=== PATIENT | male | born 1970 | race Two or more races ===

== ENCOUNTER 2018-08-15 07:23 | Day surgery (SDC) | payer SELFPAY ==
[2018-08-15 08:09] LABS: BLOOD UREA NITROGEN 55 mg/dL (7-20)
[2018-08-15 08:14] LABS: INTERNATIONAL RATION (INR) 1.68; PROTHROMBIN TIME 20.6 SEC (11.4-15.4)
[2018-08-15 08:15] LABS: PARTIAL THROMBOPLASTIN TIME 37.5 SEC (23.5-35.8)
[2018-08-15 09:20] LABS: HEMATOCRIT 35.2 % (37.9-51.0); HEMOGLOBIN 12.7 g/dL (13.5-17.0); MEAN CORPUSCULAR HEMOGLOBIN 35.3 pg (27.0-33.4); MEAN CORPUSCULAR HGB CONC 36.1 g/dL (32.0-36.0); MEAN CORPUSCULAR VOLUME 98 fl (80-97); RED CELL DISTRIBUTION WIDTH 15.4 % (11.5-14.0); WHITE BLOOD COUNT 15.6 10^3/uL (4.0-10.5)
[2018-08-15 09:45] LABS: PLATELET COUNT 60 10^3/uL (150-450)
[2018-08-15 11:10] LABS: FLUID APPEARANCE HAZY; FLUID COLOR YELLOW; FLUID VISCOSITY LIQUID
[2018-08-15 11:13] LABS: FLUID TYPE PERITONEAL
--- NOTE | 2018-08-15 11:46 | RADIOLOGY REPORT (SQ) ---
EXAM DESCRIPTION: U/S ABD PARACENTESIS COMPLETED DATE/TIME: 08/15/2018 10:37 am REASON FOR STUDY: ASCITES COMPARISON None. LIMITATIONS: None. PROCEDURE: After obtaining informed consent, the patient was brought to the ultrasound suite. The p rocedure was performed with the patient on a gurney. Ultrasound was used to identify a prominent poc ket of ascites in the left lower quadrant. An appropriate access site was selected. The patient was prepped and draped in usual sterile fashion. The access site was anesthetized with 5 mL 1% lidocai ne. A [id number]-[id number]-[id number] needle was advanced into the fluid. After aspiration of fluid the needle, the catheter was advanced off the needle into the fluid. A total of 4,400 mL of clear yellow fluid was removed. The patient tolerated the procedure well left the department in satisfactory condition. Ascites specimen was sent for testing as per Dr. Hernadez IMPRESSION: Successful ultrasound-guided diagnostic and therapeutic paracentesis COMMENT: Patient medication list reviewed: Yes- Quality ID# [id number]:Eligible professional attests to doc umenting in the medical record they obtained, updated, or reviewed the patient's current medications. TECHNICAL DOCUMENTATION: JOB ID: [id number] [employer]- All Rights Reserved Reading location - IP/workstation name: [email or web address]
[2018-08-15 13:28] VITALS: BP 110/68
== END 2018-08-15 10:50 | disposition home or self-care (01) ==
LOC: RAD 07:23
PROVIDERS: ATTEND Internal Medicine Gastroenterology
DX: K70.31 Alcoholic cirrhosis of liver with ascites (principal)
CPT/HCPCS: 36415; 49083; 82042; 82565; 84520; 85027; 85610; 85730; 87070; 87075; 87205; 89050

== ENCOUNTER 2018-09-11 15:45 | Inpatient (IN) | payer SELFPAY ==
--- NOTE | 2018-09-11 16:03 | ER Document Report ---
ED Medical Screen (RME) - General Chief Complaint: Abnormal Lab Results Stated Complaint: ABNORMAL LABS Time Seen by Provider: 09/11/18 15:54 Mode of Arrival: Ambulatory Information source: Patient TRAVEL OUTSIDE OF THE [place] IN LAST 30 DAYS: No - HPI Notes: 09/11/18 15:57 48 yr old male presents for potassium recheck with hx of renal and hepatic issues, was told by his PCP to come to ER today for receck potassium, noted hx of acites, pt is supposed to see [facility] next Saturday for liver failure. no cp, sob, n/v/d, no abd pain. pcp dr. marin, [facility]. 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 noted jaundice in eyes. Paracentesis in past. I have greeted and performed a rapid initial assessment of this patient. A comprehensive ED assessment and evaluation of the patient, analysis of test results and completion of medical decision making process will be conducted by an additional ED providers. - Related Data Allergies/Adverse Reactions: promethazine HCl [From Phenergan] Allergy (Intermediate, Verified 09/11/18 15:46) dystonic Past Medical History - Past Medical History Cardiac Medical History: Denies: Hx Coronary Artery Disease, Hx Heart Attack, Hx Hypertension Pulmonary Medical History: Denies: Hx Asthma, Hx Bronchitis, Hx COPD, Hx Pneumonia Neurological Medical History: Denies: Hx Cerebrovascular Accident, Hx Seizures Musculoskeltal Medical History: Denies Hx Arthritis - Immunizations Hx Diphtheria, Pertussis, Tetanus Vaccination: Yes History of Influenza Vaccine for 06/2017 - 11/2017 Season: Unknown Physical Exam - Vital signs Vitals: Temp Pulse Resp BP Pulse Ox 98.5 F 110 H 20 114/60 100 09/11/18 15:50 09/11/18 15:50 09/11/18 15:50 09/11/18 15:50 09/11/18 15:50 - Respiratory Respiratory status: No respiratory distress Chest status: Nontender Breath sounds: Normal Chest palpation: Normal - Cardiovascular Rhythm: Tachycardia Normal capillary refill: Yes - Skin Skin Color: Jaundiced Course - Vital Signs Vital signs: Temp Pulse Resp BP Pulse Ox 98.5 F 110 H 20 114/60 100 09/11/18 15:50 09/11/18 15:50 09/11/18 15:50 09/11/18 15:50 09/11/18 15:50 Doctor's Discharge - Discharge Referrals: HANH GTZ MD [Primary Care Provider] - Follow up as needed
[2018-09-11 16:22] LABS: ABSOLUTE EOSINOPHILS # (AUTO) 0.1 10^3/uL (0.0-0.6); ABSOLUTE LYMPHOCYTES (AUTO) 1.2 10^3/uL (0.5-4.7); ABSOLUTE MONOCYTES (AUTO) 1.9 10^3/uL (0.1-1.4); ABSOLUTE NEUT (AUTO) 9.6 10^3/uL (1.7-8.2); BASOPHILS % (AUTO) 0.3 % (0-2); EOSINOPHILS % (AUTO) 0.9 % (0-6); HEMATOCRIT 31.2 % (37.9-51.0); HEMOGLOBIN 10.8 g/dL (13.5-17.0); LYMPHOCYTES % (AUTO) 9.5 % (13-45); MEAN CORPUSCULAR HEMOGLOBIN 34.4 pg (27.0-33.4); MEAN CORPUSCULAR HGB CONC 34.7 g/dL (32.0-36.0); MEAN CORPUSCULAR VOLUME 99 fl (80-97); MONOCYTES % (AUTO) 14.9 % (3-13); PLATELET COUNT 188 10^3/uL (150-450); RED BLOOD COUNT 3.15 10^6/uL (4.35-5.55); RED CELL DISTRIBUTION WIDTH 16.4 % (11.5-14.0); SEGMENTED NEUTROPHILS % (AUTO) 74.4 % (42-78); TOTAL CELLS COUNTED % (AUTO) 100 %; WHITE BLOOD COUNT 12.8 10^3/uL (4.0-10.5)
[2018-09-11 16:28] LABS: INTERNATIONAL RATION (INR) 1.33; PROTHROMBIN TIME 17.1 SEC (11.4-15.4)
[2018-09-11 16:29] LABS: PARTIAL THROMBOPLASTIN TIME 34.6 SEC (23.5-35.8)
[2018-09-11 16:34] LABS: APPEARANCE,URINE CLEAR; BILIRUBIN,URINE NEGATIVE (NEGATIVE); COLOR,URINE YELLOW; GLUCOSE, URINE NEGATIVE (NEGATIVE); KETONES,URINE NEGATIVE (NEGATIVE); LEUKOCYTE ESTERASE,URINE NEGATIVE (NEGATIVE); NITRITE,URINE NEGATIVE (NEGATIVE); PROTEIN,URINE NEGATIVE (NEGATIVE); URINE SPECIFIC GRAVITY 1.008; UROBILINOGEN,URINE NEGATIVE mg/dL (<2.0)
[2018-09-11 16:43] LABS: ALANINE AMINOTRANSFERASE 44 U/L (21-72); ALBUMIN 2.9 g/dL (3.5-5.0); ALKALINE PHOSPHATASE 303 U/L (38-126); ANION GAP 13 (5-19); ASPARTATE AMINO TRANSFERASE 59 U/L (17-59); BILIRUBIN,DIRECT 5.2 mg/dL (0.0-0.4); BILIRUBIN,TOTAL 8.6 mg/dL (0.2-1.3); BLOOD UREA NITROGEN 27 mg/dL (7-20); CALCIUM 8.3 mg/dL (8.4-10.2); CARBON DIOXIDE 26 mmol/L (22-30); CHLORIDE 95 mmol/L (98-107); GLUCOSE 109 mg/dL (75-110); LIPASE 128.8 U/L (23-300); SODIUM 133.8 mmol/L (137-145); TOTAL PROTEIN 5.5 g/dL (6.3-8.2)
--- NOTE | 2018-09-11 16:51 | RADIOLOGY REPORT (SQ) ---
EXAM DESCRIPTION: CHEST SINGLE VIEW COMPLETED DATE/TIME: 09/11/2018 4:41 pm REASON FOR STUDY: low K, weakness COMPARISON: 08/24/2016. EXAM PARAMETERS: NUMBER OF VIEWS: One view. TECHNIQUE: Single frontal radiographic view of the chest acquired. RADIATION DOSE: NA LIMITATIONS: None. FINDINGS: LUNGS AND PLEURA: Low lung volumes. No infiltrates, masses or pneumothorax. No pleural ef fusion. MEDIASTINUM AND HILAR STRUCTURES: No masses. Contour normal. HEART AND VASCULAR STRUCTURES: Heart normal in size. Normal vasculature. BONES: No acute findings. HARDWARE: Surgical clips in the abdomen. OTHER: No other significant finding. IMPRESSION: NO ACUTE RADIOGRAPHIC FINDING IN THE CHEST. TECHNICAL DOCUMENTATION: JOB ID: [id number] [employer]- All Rights Reserved Reading location - IP/workstation name: [email or web address]
[2018-09-11 17:09] LABS: POTASSIUM 2.3 mmol/L (3.6-5.0)
[2018-09-11] MEDS ORDERED: POTASSIUM CHLORIDE 10 MEQ CAPSULE.ER PO ONE ×2 (17:11→18:14)
[2018-09-11] MEDS ORDERED: POTASSI CL 20 MEQ/50 ML RIDER 20 MEQ/50 ML RTUPB IV ONE ×2 (17:13→17:53)
--- NOTE | 2018-09-11 18:32 | ER Document Report ---
ED General - General Chief Complaint: Abnormal Lab Results Stated Complaint: ABNORMAL LABS Time Seen by Provider: 09/11/18 15:54 Mode of Arrival: Ambulatory TRAVEL OUTSIDE OF THE [place] IN LAST 30 DAYS: No - HPI Notes: Patient is a 48-year-old male that presents to the emergency department for chief complaint of hypokalemia. Patient states that he is in the process of being managed for acute alcoholic cirrhosis and liver failure. He was recently seen at [facility] for his symptoms. Patient had follow-up blood work done as an outpatient yesterday and was told to come into the emergency room today for hypokalemia. He denies history of hypokalemia in the past. He denies any other symptoms. He states in general he feels his jaundice is improving. He denies any acute abdominal pain but does still have the ascites which he states is unchanged. He denies any wo rsening lower extremity edema, fevers, nausea, vomiting, diarrhea, chest pain and shortness of breath. Past Medical History: Alcoholic cirrhosis Past Surgical History: Viewed in chart Social History: History of alcoholism, denies tobacco and drug use Family History: Reviewed and noncontributory for presenting illness Allergies: Reviewed, see documented allergy list. REVIEW OF SYSTEMS: CONSTITUTIONAL : No fever No chills No diaphoresis No recent illness EENT: No vision changes No congestion No sore throat CARDIOVASCULAR: No chest pain No palpitations RESPIRATORY: No shortness of breath No cough No difficulty breathing GASTROINTESTINAL: No abdominal pain No nausea No vomiting No diarrhea GENITOURINARY: No dysuria No hematuria No difficulty urinating MUSCULOSKELETAL: No back pain No leg pain No arm pain SKIN: No rashes No lesions LYMPHATIC: No swollen, enlarged glands. NEUROLOGICAL: No lightheadedness No headache No weakness No paresthesias PSYCHIATRIC: No anxiety No depression PHYSICAL EXAMINATION: Vital signs reviewed, nursing noted reviewed. GENERAL: Well-appearing, well-nourished and in no acute distress. HEAD: Atraumatic, normocephalic. EYES: Eyes appear normal, extraocular movements intact, scleral icterus, conjun ctiva are normal. ENT: nares patent, oropharynx clear without exudates. Moist mucous membranes. NECK: Normal range of motion, supple without lymphadenopathy LUNGS: Breath sounds clear to auscultation bilaterally and equal. No wheezes rales or rhonchi. HEART: Tachycardic and regular rhythm without murmurs ABDOMEN: Soft, nontender, normoactive bowel sounds. No rebound, guarding, or rigidity. Distended with fluid wave and ascites EXTREMITIES: Nontender, good range of motion, +2 pitting edema bilateral lower extremities with no weeping. NEUROLOGICAL: No focal neurological deficits. Moves all extremities spontaneously Motor and sensory grossly intact on exam. PSYCH: Normal mood, normal affect. SKIN: Warm, Dry, normal turgor, jaundice - Related Data Allergies/Adverse Reactions: promethazine HCl [From Phenergan] Allergy (Intermediate, Verified 09/11/18 15:46) dystonic Past Medical History - General Information source: Patient - Social History Smoking Status: Unknown if Ever Smoked Family History: Reviewed & Not Pertinent Patient has suicidal ideation: No Patient has homicidal ideation: No - Past Medical History Cardiac Medical History: Denies: Hx Coronary Artery Disease, Hx Heart Attack, Hx Hypertension Pulmonary Medical History: Denies: Hx Asthma, Hx Bronchitis, Hx COPD, Hx Pneumonia Neurological Medical History: Denies: Hx Cerebrovascular Accident, Hx Seizures Renal/ Medical History: Reports: Hx End Stage Renal Disease. Denies: Hx Peritoneal Dialysis Musculoskeletal Medical History: Denies Hx Arthritis - Immunizations Hx Diphtheria, Pertussis, Tetanus Vaccination: Yes Physical Exam - Vital signs Vitals: Temp Pulse Resp BP Pulse Ox 98.5 F 110 H 20 114/60 100 09/11/18 15:50 09/11/18 15:50 09/11/18 15:50 09/11/18 15:50 09/11/18 15:50 Course - Re-evaluation Re-evalutation: 09/11/18 18:30 Vitals reviewed. Nursing notes reviewed. Patient is jaundiced with a elevated total bilirubin greater than 8. I am attempting to reach [facility] to see if this is new or part of his cirrhosis. Patient's potassium is 2.3 and he will be given potassium replacement. He is on property assessment monitor. EKG shows no dysrhythmia. 09/11/18 18:43 Patient's care was discussed with Dr. Prasad Menon, hepatology at [facility]. Patient's creatinine at discharge was 1.4, BUN 18, total bilirubin 12. He states that patient has worsening renal function likely due to his third spacing and does not recommend any fluids. He recommends albumin which will be given to the patient in the emergency room. His total bilirubin is improving since he has stopped drinking. He does not feel any further workup of his elevated total bili is currently indicated. Patient's potassium was replaced oral and IV. He will be admitted to the hospital for close monitoring of his renal function as well as hypokalemia. Case discussed with Dr. Lang who accepts admission. Laboratory 09/11/18 09/11/18 09/11/18 16:00 16:00 16:00 WBC 12.8 H RBC 3.15 L Hgb 10.8 L Hct 31.2 L MCV 99 H MCH 34.4 H MCHC 34.7 RDW 16.4 H Plt Count 188 Seg Neutrophils % 74.4 Lymphocytes % 9.5 L Monocytes % 14.9 H Eosinophils % 0.9 Basophils % 0.3 Absolute Neutrophils 9.6 H Absolute Lymphocytes 1.2 Absolute Monocytes 1.9 H Absolute Eosinophils 0.1 Absolute Basophils 0.0 PT INR APTT Sodium 133.8 L Potassium 2.3 L* Chloride 95 L Carbon Dioxide 26 Anion Gap 13 BUN 27 H Creatinine 1.97 H Est GFR ( Amer) 44 L Est GFR (Non-Af Amer) 37 L Glucose 109 Calcium 8.3 L Total Bilirubin 8.6 H Direct Bilirubin 5.2 H Neonat Total Bilirubin Not Reportable Neonat Direct Bilirubin Not Reportable Neonat Indirect Bili Not Reportable AST 59 ALT 44 Alkaline Phosphatase 303 H Ammonia Troponin I < 0.012 Total Protein 5.5 L Albumin 2.9 L Lipase 128.8 Urine Color Urine Appearance Urine pH Ur Specific [place] Urine Protein Urine Glucose (UA) Urine Ketones Urine Blood Urine Nitrite Urine Bilirubin Urine Urobilinogen Ur Leukocyte Esterase Urine WBC (Auto) U Hyaline Cast (Auto) Squamous Epi Cells Auto Urine Mucus (Auto) Urine Ascorbic Acid 09/11/18 09/11/18 09/11/18 16:00 16:00 16:00 WBC RBC Hgb Hct MCV MCH MCHC RDW Plt Count Seg Neutrophils % Lymphocytes % Monocytes % Eosinophils % Basophils % Absolute Neutrophils Absolute Lymphocytes Absolute Monocytes Absolute Eosinophils Absolute Basophils PT 17.1 H INR 1.33 APTT 34.6 Sodium Potassium Chloride Carbon Dioxide Anion Gap BUN Creatinine Est GFR ( Amer) Est GFR (Non-Af Amer) Glucose Calcium Total Bilirubin Direct Bilirubin Neonat Total Bilirubin Neonat Direct Bilirubin Neonat Indirect Bili AST ALT Alkaline Phosphatase Ammonia 30.7 Troponin I Total Protein Albumin Lipase Urine Color YELLOW Urine Appearance CLEAR Urine pH 6.0 Ur Specific [place] 1.008 Urine Protein NEGATIVE Urine Glucose (UA) NEGATIVE Urine Ketones NEGATIVE Urine Blood SMALL H Urine Nitrite NEGATIVE Urine Bilirubin NEGATIVE Urine Urobilinogen NEGATIVE Ur Leukocyte Esterase NEGATIVE Urine WBC (Auto) 0 U Hyaline Cast (Auto) 5 Squamous Epi Cells Auto 1 Urine Mucus (Auto) RARE Urine Ascorbic Acid NEGATIVE Chest X-Ray 09/11/18 15:55 IMPRESSION: NO ACUTE RADIOGRAPHIC FINDING IN THE CHEST. - Vital Signs Vital signs: Temp Pulse Resp BP Pulse Ox 98.5 F 110 H 24 H 106/62 98 09/11/18 15:50 09/11/18 15:50 09/11/18 18:01 09/11/18 18:00 09/11/18 18:01 - Laboratory Result Diagrams: 09/11/18 16:00 09/11/18 16:00 Laboratory results interpreted by me: 09/11/18 09/11/18 09/11/18 16:00 16:00 16:00 WBC 12.8 H RBC 3.15 L Hgb 10.8 L Hct 31.2 L MCV 99 H MCH 34.4 H RDW 16.4 H Lymphocytes % 9.5 L Monocytes % 14.9 H Absolute Neutrophils 9.6 H Absolute Monocytes 1.9 H PT 17.1 H Sodium 133.8 L Potassium 2.3 L* Chloride 95 L BUN 27 H Creatinine 1.97 H Est GFR ( Amer) 44 L Est GFR (Non-Af Amer) 37 L Calcium 8.3 L Total Bilirubin 8.6 H Direct Bilirubin 5.2 H Alkaline Phosphatase 303 H Total Protein 5.5 L Albumin 2.9 L Urine Blood 09/11/18 16:00 WBC RBC Hgb Hct MCV MCH RDW Lymphocytes % Monocytes % Absolute Neutrophils Absolute Monocytes PT Sodium Potassium Chloride BUN Creatinine Est GFR ( Amer) Est GFR (Non-Af Amer) Calcium Total Bilirubin Direct Bilirubin Alkaline Phosphatase Total Protein Albumin Urine Blood SMALL H - EKG Interpretation by Me Additional EKG results interpreted by me: 09/11/18 18:31 Interpreted by myself [id number]: Sinus tachycardia, rate 111, normal axis, no ectopy, no ST elevation Discharge - Discharge Clinical Impression: Hypokalemia, Total bilirubin, elevated, KAREN (acute kidney injury) Condition: Stable Disposition: ADMITTED OBSERVATION Admitting Provider: Hospitalist Unit Admitted: Telemetry Referrals: HANH GTZ MD [Primary Care Provider] - Follow up as needed
[2018-09-11] MEDS ORDERED: IPRATROPIUM/ALBUTEROL 0.5-2.5 MG/3 ML AMPUL NEB PRN (19:03)
[2018-09-11] MEDS ORDERED: MAG HYDROX/AL HYDROX/SIMETH SUSP 30 ML UDCUP PO PRN (19:03)
[2018-09-11] MEDS: ALBUMIN HUMAN 12.5 GM/50 ML RTUINJ IV SCH ×4 (19:09→23:47)
[2018-09-11 19:34] LABS: LIPASE 125.6 U/L (23-300); PHOSPHORUS 3.2 mg/dL (2.5-4.5)
[2018-09-11] MEDS: FOLIC ACID 1 MG TABLET PO SCH (19:36)
[2018-09-11 19:55] LABS: URINE AMPHETAMINES SCREEN NEGATIVE; URINE BARBITURATES SCREEN NEGATIVE; URINE BENZODIAZEPINES SCREEN NEGATIVE; URINE COCAINE SCREEN NEGATIVE; URINE MARIJUANA (THC) SCREEN NEGATIVE; URINE METHADONE SCREEN NEGATIVE; URINE PHENCYCLIDINE SCREEN NEGATIVE
[2018-09-11] MEDS: THIAMINE HCL 100 MG TABLET PO SCH (20:49)
--- NOTE | 2018-09-12 04:32 | PDOC H&P ---
History of Present Illness Admission Date/PCP: 09/11/18 19:25 HANH GTZ MD Patient complains of: Abnormal labs History of Present Illness: ROSALIE REN is a 48 year old male with a recent past medical history of acute alcoholic hepatitis leading to hepatic cirrhosis and renal failure. Patient was recently discharged from [facility] after starting Lasix, lactulose and Aldactone. Follow-up labs of revealed hypokalemia prompting a referral to the emergency room where he was found to have a potassium of 2.3, creatinine of 1.9 and total bilirubin of 8.6 from 12 at discharge from [facility]. Patient himself has no complaints aside from generalized weakness and abdominal distention. Denying abdominal pain fever nausea or vomiting. He is ordered albumin, IV potassium and referred to the hospitalist for admission. Patient denies alcohol use. Past Medical History Cardiac Medical History: Denies: Coronary Artery Disease, Myocardial Infarction, Hypertension Pulmonary Medical History: Denies: Asthma, Bronchitis, Chronic Obstructive Pulmonary Disease (COPD), Pneumonia Neurological Medical History: Denies: Seizures Renal/ Medical History: Reports: Chronic Kidney Disease GI Medical History: Reports: Cirrhosis Musculoskeltal Medical History: Denies: Arthritis Psychiatric Medical History: Denies: Depression Hematology: Denies: Anemia Social History Information Source: Patient Lives with: Family Smoking Status: Unknown if Ever Smoked Frequency of Alcohol Use: None Hx Prescription Drug Abuse: No - Advance Directive Resuscitation Status: Full Code Family History Family History: Hypertension Parental Family History Reviewed: Yes Children Family History Reviewed: Yes Sibling(s) Family History Reviewed.: Yes Medication/Allergy Home Medications: Furosemide [Lasix 20 mg Tablet] 40 mg PO DAILY 09/11/18 Spironolactone [Aldactone 100 mg Tablet] 100 mg PO DAILY 09/11/18 Allergies/Adverse Reactions: promethazine HCl [From Phenergan] Allergy (Intermediate, Verified 09/11/18 15:46) dystonic Review of Systems Constitutional: PRESENT: as per HPI, fatigue, weakness, weight gain. ABSENT: fever(s), headache(s), night sweats Eyes: ABSENT: visual disturbances Ears: ABSENT: hearing changes Cardiovascular: ABSENT: chest pain, dyspnea on exertion, edema, orthropnea, palpitations Respiratory: ABSENT: cough, hemoptysis Gastrointestinal: PRESENT: as per HPI. ABSENT: abdominal pain, bloating, coffee ground emesis, constipation, melena, nausea, vomiting Genitourinary: ABSENT: dysuria, hematuria Musculoskeletal: ABSENT: joint swelling Integumentary: ABSENT: rash, wounds Neurological: ABSENT: abnormal gait, abnormal speech, confusion, dizziness, focal weakness, syncope Psychiatric: ABSENT: anxiety, depression, homidical ideation, suicidal ideation Endocrine: ABSENT: cold intolerance, heat intolerance, polydipsia, polyuria Hematologic/Lymphatic: ABSENT: easy bleeding, easy bruising Physical Exam Vital Signs: Temp Pulse Resp BP Pulse Ox 98.7 F 116 H 16 99/52 L 93 09/11/18 23:07 09/11/18 23:07 09/11/18 23:07 09/11/18 23:07 09/11/18 23:07 Intake & Output 09/10/18 09/11/18 09/12/18 11:59 11:59 11:59 Intake Total 250 Balance 250 Weight 86.2 kg General appearance: PRESENT: cooperative, mild distress, morbidly obese. ABSENT: disheveled Head exam: PRESENT: atraumatic, normocephalic Eye exam: PRESENT: EOMI, PERRLA, scleral icterus Ear exam: PRESENT: normal external ear exam Mouth exam: PRESENT: moist, tongue midline Neck exam: ABSENT: carotid bruit, JVD, lymphadenopathy, thyromegaly Respiratory exam: PRESENT: clear to auscultation keeley. ABSENT: rales, rhonchi, wheezes Cardiovascular exam: PRESENT: RRR. ABSENT: diastolic murmur, rubs, systolic murmur Pulses: PRESENT: normal dorsalis pedis pul Vascular exam: PRESENT: normal capillary refill GI/Abdominal exam: PRESENT: ascites, distended, hypoactive bowel sounds, soft. ABSENT: guarding, tenderness Rectal exam: PRESENT: deferred Extremities exam: PRESENT: full ROM, pedal edema, +2 edema. ABSENT: joint swelling Neurological exam: PRESENT: alert, awake, oriented to person, oriented to place, oriented to time, oriented to situation, CN II-XII grossly intact. ABSENT: dee r sensory deficit Psychiatric exam: PRESENT: appropriate affect, normal mood. ABSENT: homicidal ideation, suicidal ideation Skin exam: PRESENT: dry, intact, warm. ABSENT: cyanosis, rash Results Laboratory Results: 09/11/18 16:00 09/11/18 16:00 0109/11/18 09/11/18 16:00 16:00 16:00 WBC 12.8 H RBC 3.15 L Hgb 10.8 L Hct 31.2 L MCV 99 H MCH 34.4 H MCHC 34.7 RDW 16.4 H Plt Count 188 Seg Neutrophils % 74.4 Lymphocytes % 9.5 L Monocytes % 14.9 H Eosinophils % 0.9 Basophils % 0.3 Absolute Neutrophils 9.6 H Absolute Lymphocytes 1.2 Absolute Monocytes 1.9 H Absolute Eosinophils 0.1 Absolute Basophils 0.0 Sodium 133.8 L Potassium 2.3 L* Chloride 95 L Carbon Dioxide 26 Anion Gap 13 BUN 27 H Creatinine 1.97 H Est GFR ( Amer) 44 L Est GFR (Non-Af Amer) 37 L Glucose 109 Calcium 8.3 L Phosphorus Magnesium Total Bilirubin 8.6 H AST 59 ALT 44 Alkaline Phosphatase 303 H Ammonia 30.7 Total Protein 5.5 L Albumin 2.9 L Lipase 128.8 Urine Color Urine Appearance Urine pH Ur Specific [place] Urine Protein Urine Glucose (UA) Urine Ketones Urine Blood Urine Nitrite Ur Leukocyte Esterase Urine WBC (Auto) 09/11/18 09/11/18 16:00 16:00 WBC RBC Hgb Hct MCV MCH MCHC RDW Plt Count Seg Neutrophils % Lymphocytes % Monocytes % Eosinophils % Basophils % Absolute Neutrophils Absolute Lymphocytes Absolute Monocytes Absolute Eosinophils Absolute Basophils Sodium Potassium Chloride Carbon Dioxide Anion Gap BUN Creatinine Est GFR ( Amer) Est GFR (Non-Af Amer) Glucose Calcium Phosphorus 3.2 Magnesium 2.0 Total Bilirubin AST ALT Alkaline Phosphatase Ammonia Total Protein Albumin Lipase 125.6 Urine Color YELLOW Urine Appearance CLEAR Urine pH 6.0 Ur Specific [place] 1.008 Urine Protein NEGATIVE Urine Glucose (UA) NEGATIVE Urine Ketones NEGATIVE Urine Blood SMALL H Urine Nitrite NEGATIVE Ur Leukocyte Esterase NEGATIVE Urine WBC (Auto) 0 09/11/18 16:00 Troponin I < 0.012 Impressions: Chest X-Ray 09/11/18 15:55 IMPRESSION: NO ACUTE RADIOGRAPHIC FINDING IN THE CHEST. Assessment & Plan - Diagnosis (1) Hepatic cirrhosis Is this a current diagnosis for this admission?: Yes Plan: Followed by [facility] hepatology Dr. Prasad Menon. Cirrhosis secondary to alcohol currently abstinent, significant hypoalbuminemia with intravascular depletion and third spacing. Follow-up LFTs (2) Hypoalbuminemia Is this a current diagnosis for this admission?: Yes Plan: Trial IV albumin, consider repeating if hypotensive with worsening renal failure. (3) KAREN (acute kidney injury) Is this a current diagnosis for this admission?: Yes Plan: Secondary to hyperammonemia leading to intravascular depletion and prerenal failure. Consider nephrology consult and repeat IV albumin with saline. Follow-up chemistry (4) Hypokalemia Is this a current diagnosis for this admission?: Yes Plan: Secondary to Lasix and lactulose use. Unclear Aldactone compliance. IV pota ssium repletion and education - Time Time Spent: 50 to 70 Minutes - Inpatient Certification Medical Necessity: Need Close Monitoring Due to Risk of Patient Decompensation
[2018-09-12 05:27] LABS: ABSOLUTE EOSINOPHILS # (AUTO) 0.1 10^3/uL (0.0-0.6); ABSOLUTE LYMPHOCYTES (AUTO) 1.1 10^3/uL (0.5-4.7); ABSOLUTE MONOCYTES (AUTO) 1.3 10^3/uL (0.1-1.4); ABSOLUTE NEUT (AUTO) 7.7 10^3/uL (1.7-8.2); BASOPHILS % (AUTO) 0.3 % (0-2); EOSINOPHILS % (AUTO) 0.9 % (0-6); HEMATOCRIT 25.9 % (37.9-51.0); HEMOGLOBIN 9.1 g/dL (13.5-17.0); LYMPHOCYTES % (AUTO) 10.3 % (13-45); MEAN CORPUSCULAR HGB CONC 35.2 g/dL (32.0-36.0); MEAN CORPUSCULAR VOLUME 99 fl (80-97); MONOCYTES % (AUTO) 13.1 % (3-13); PLATELET COUNT 148 10^3/uL (150-450); RED BLOOD COUNT 2.61 10^6/uL (4.35-5.55); RED CELL DISTRIBUTION WIDTH 16.1 % (11.5-14.0); SEGMENTED NEUTROPHILS % (AUTO) 75.4 % (42-78); TOTAL CELLS COUNTED % (AUTO) 100 %; WHITE BLOOD COUNT 10.2 10^3/uL (4.0-10.5)
[2018-09-12 05:53] LABS: ALANINE AMINOTRANSFERASE 37 U/L (21-72); ALBUMIN 2.8 g/dL (3.5-5.0); ALKALINE PHOSPHATASE 245 U/L (38-126); ANION GAP 10 (5-19); ASPARTATE AMINO TRANSFERASE 48 U/L (17-59); BILIRUBIN,DIRECT 4.1 mg/dL (0.0-0.4); BILIRUBIN,TOTAL 7.6 mg/dL (0.2-1.3); BLOOD UREA NITROGEN 25 mg/dL (7-20); CALCIUM 8.3 mg/dL (8.4-10.2); CARBON DIOXIDE 24 mmol/L (22-30); CHLORIDE 100 mmol/L (98-107); GLUCOSE 120 mg/dL (75-110); SODIUM 134.2 mmol/L (137-145)
[2018-09-12 06:00] LABS: POTASSIUM 2.8 mmol/L (3.6-5.0)
[2018-09-12] MEDS: HEPARIN SOD (PORCINE) 5,000 UNIT/ML 1 ML SYRINGE SUBCUT SCH ×4 (06:12→22:32)
[2018-09-12] MEDS ORDERED: POTASSIUM CHLORIDE 10 MEQ CAPSULE.ER PO ONE (07:30)
--- NOTE | 2018-09-12 08:21 | EKG REPORT ---
SEVERITY:- OTHERWISE NORMAL ECG - SINUS TACHYCARDIA : Confirmed by: Azra Cosby MD 12-Sep-2018 08:20:12
[2018-09-12] MEDS: POTASSIUM CHLORIDE 20 MEQ/50 ML RTU IV SCH ×2 (08:46→11:31)
[2018-09-12] MEDS ORDERED: PHYTONADIONE 5 MG TABLET PO SCH (10:00)
[2018-09-12] MEDS: SPIRONOLACTONE 25 MG TABLET PO SCH (11:30)
[2018-09-12] MEDS: THIAMINE HCL 100 MG TABLET PO SCH (11:30)
[2018-09-12] MEDS: FOLIC ACID 1 MG TABLET PO SCH (11:31)
--- NOTE | 2018-09-12 14:47 | PDOC PROGRESS REPORT ---
Subjective Progress Note for:: 09/12/18 Subjective:: This is a 48 yr old male with a PMH of alcoholic liver cirrhosis and CKD who was recently discharged from [facility] who was presented after he was sent to the ER by his PCP due to hypokalemia. Patient says that he was discharged on lactulose from [place] and started having 5- 6 times of bowel movements per day. He says on his regular day prior to taking lactulose, he grajeda 3 BM/day. He was also taking lasix and aldactone. Potassium was low at 2.3. He was started on potasium supplements. No acute event overnight. However, this morning, his potassium was still ow and only went up to 2.8. He was given another 40 meqs of PO KCl and 40 meqs IV. His bowel movement is back to baseline now. Denies abdominl pain, fever or chills. He has chronic abdominal distention from his chronic ascites. He says his jaundice is also improving compared to when he was in [place]. Reason For Visit: HYPOKALEMIA,ARF,HEPATIC CIRRHOSIS Physical Exam Vital Signs: Temp Pulse Resp BP Pulse Ox 99.2 F 115 H 16 100/58 L 98 09/12/18 11:28 09/12/18 11:28 09/12/18 11:28 09/12/18 11:28 09/12/18 11:28 Intake & Output 09/11/18 09/12/18 09/13/18 06:59 06:59 06:59 Intake Total 300 50 Balance 300 50 Weight 190 lb 0.615 oz General appearance: PRESENT: no acute distress, well-developed, well-nourished Head exam: PRESENT: atraumatic, normocephalic Eye exam: PRESENT: scleral icterus. ABSENT: conjunctival injection Ear exam: PRESENT: normal external ear exam Mouth exam: PRESENT: moist, tongue midline Neck exam: ABSENT: carotid bruit, JVD, lymphadenopathy, thyromegaly Respiratory exam: PRESENT: clear to auscultation keeley. ABSENT: rales, rhonchi, wheezes Cardiovascular exam: PRESENT: RRR. ABSENT: diastolic murmur, rubs, systolic murmur GI/Abdominal exam: PRESENT: ascites, distended, other - note of caput medusae. ABSENT: diminished bowel sounds, tenderness Rectal exam: PRESENT: deferred Neurological exam: PRESENT: alert, awake, oriented to person, oriented to place, oriented to time, oriented to situation, CN II-XII grossly intact. ABSENT: motor sensory deficit Results Laboratory Results: 09/12/18 05:00 09/12/18 05:00 09/11/18 09/11/18 09/11/18 16:00 16:00 16:00 WBC 12.8 H RBC 3.15 L Hgb 10.8 L Hct 31.2 L MCV 99 H MCH 34.4 H MCHC 34.7 RDW 16.4 H Plt Count 188 Seg Neutrophils % 74.4 Lymphocytes % 9.5 L Monocytes % 14.9 H Eosinophils % 0.9 Basophils % 0.3 Absolute Neutrophils 9.6 H Absolute Lymphocytes 1.2 Absolute Monocytes 1.9 H Absolute Eosinophils 0.1 Absolute Basophils 0.0 Sodium 133.8 L Potassium 2.3 L* Chloride 95 L Carbon Dioxide 26 Anion Gap 13 BUN 27 H Creatinine 1.97 H Est GFR ( Amer) 44 L Est GFR (Non-Af Amer) 37 L Glucose 109 Calcium 8.3 L Phosphorus Magnesium Total Bilirubin 8.6 H AST 59 ALT 44 Alkaline Phosphatase 303 H Ammonia 30.7 Total Protein 5.5 L Albumin 2.9 L Lipase 128.8 Urine Color Urine Appearance Urine pH Ur Specific [place] Urine Protein Urine Glucose (UA) Urine Ketones Urine Blood Urine Nitrite Ur Leukocyte Esterase Urine WBC (Auto) 09/11/18 09/11/18 09/12/18 16:00 16:00 05:00 WBC 10.2 RBC 2.61 L Hgb 9.1 L Hct 25.9 L MCV 99 H MCH 35.0 H MCHC 35.2 RDW 16.1 H Plt Count 148 L Seg Neutrophils % 75.4 Lymphocytes % 10.3 L Monocytes % 13.1 H Eosinophils % 0.9 Basophils % 0.3 Absolute Neutrophils 7.7 Absolute Lymphocytes 1.1 Absolute Monocytes 1.3 Absolute Eosinophils 0.1 Absolute Basophils 0.0 Sodium Potassium Chloride Carbon Dioxide Anion Gap BUN Creatinine Est GFR ( Amer) Est GFR (Non-Af Amer) Glucose Calcium Phosphorus 3.2 Magnesium 2.0 Total Bilirubin AST ALT Alkaline Phosphatase Ammonia Total Protein Albumin Lipase 125.6 Urine Color YELLOW Urine Appearance CLEAR Urine pH 6.0 Ur Specific [place] 1.008 Urine Protein NEGATIVE Urine Glucose (UA) NEGATIVE Urine Ketones NEGATIVE Urine Blood SMALL H Urine Nitrite NEGATIVE Ur Leukocyte Esterase NEGATIVE Urine WBC (Auto) 0 09/12/18 05:00 WBC RBC Hgb Hct MCV MCH MCHC RDW Plt Count Seg Neutrophils % Lymphocytes % Monocytes % Eosinophils % Basophils % Absolute Neutrophils Absolute Lymphocytes Absolute Monocytes Absolute Eosinophils Absolute Basophils Sodium 134.2 L Potassium 2.8 L* Chloride 100 Carbon Dioxide 24 Anion Gap 10 BUN 25 H Creatinine 1.74 H Est GFR ( Amer) 51 L Est GFR (Non-Af Amer) 42 L Glucose 120 H Calcium 8.3 L Phosphorus Magnesium Total Bilirubin 7.6 H AST 48 ALT 37 Alkaline Phosphatase 245 H Ammonia Total Protein 5.0 L Albumin 2.8 L Lipase Urine Color Urine Appearance Urine pH Ur Specific [place] Urine Protein Urine Glucose (UA) Urine Ketones Urine Blood Urine Nitrite Ur Leukocyte Esterase Urine WBC (Auto) 09/11/18 16:00 Troponin I < 0.012 Impressions: Chest X-Ray 09/11/18 15:55 IMPRESSION: NO ACUTE RADIOGRAPHIC FINDING IN THE CHEST. Assessment & Plan - Diagnosis (1) Hypokalemia Is this a current diagnosis for this admission?: Yes Plan: Likely related to GI losses from multiple BM from lactulose with diuresis from Lasix contributing to hypokalemia. He got another 40 mew oral and 40 mew IV Potassium replacement. Will recheck BMP. Will resume diuretics when his hypokalemia is corrected. Lactulose already held upon admission. (2) Hepatic cirrhosis Is this a current diagnosis for this admission?: Yes Plan: Resume diuretics when hypokalemia is corrected (3) Acute kidney injury superimposed on chronic kidney disease Is this a current diagnosis for this admission?: Yes Plan: Previous creatinine was 1.94. He came in with a creatinine of 1.97. This has trended down to 1.7 today. Patient did receive albumin overnight. - Time Time Spent with patient: 25-34 minutes
[2018-09-12 16:51] LABS: ANION GAP 7 (5-19); BLOOD UREA NITROGEN 23 mg/dL (7-20); CALCIUM 8.6 mg/dL (8.4-10.2); CARBON DIOXIDE 26 mmol/L (22-30); CHLORIDE 101 mmol/L (98-107); GLUCOSE 148 mg/dL (75-110); SODIUM 134.4 mmol/L (137-145)
[2018-09-12 16:57] LABS: POTASSIUM 4.8 mmol/L (3.6-5.0)
--- NOTE | 2018-09-12 18:15 | PDOC CONSULTATION ---
Consultation Consult Date: 09/12/18 Attending physician:: FREDA CHAVEZ Consult reason:: I was asked to see the patient due to worsening kidney function. History of Present Illness Admission Date/PCP: 09/11/18 19:25 HANH GTZ MD History of Present Illness: ROSALIE REN is a 48 year old male which is recently diagnosed alcoholic liver disease who was sent to the emergency room yesterday by his local administrative assistant office manager, Dr. Gtz due to hypokalemia. Initial potassium was 2.3 yesterday and potassium replacements are being given since admission until now. Repeat potassium today was 2.8. Patient related that he has had some loose stools due to the lactulose that was started at [facility]. Other than that he denies any other symptoms including no nausea, vomiting, abdominal pain, fever, shortness of breath, no chest pains. He does have a significant leg swelling which she said fluctuates in terms of intensity. He also has abdominal bloating and has history of previous paracentesis in the past. Patient was admitted at [facility] for 8 days and was discharged on 09/01 where he was diagnosed with alcohol liver cirrhosis and he was also told that he has abnormal kidney function. He was discharged on Lasix, spironolactone and lactulose. He said he quit alcohol for the last 55 days now. He has a administrative assistant office manager at [facility]. He said he has had all kinds of tests at [facility] including possible ultrasound and CT scans of the abdomen. When the patient came in he also has abnormal kidney function with BUN of 27 and creatinine of 1.97 today they are 25 and 1.74 with estimated GFR of 37 unchanged from yesterday. Past August 15, 2018 he had a BUN of 55, creatinine 1.94 with estimated GFR of 42. Previous to that on August 2016 he had a BUN of 11, creatinine 1.18 with normal GFR. He claims he is making good amount of urine and drinking fluids as well. His sodium is slightly low ranging from 132-134. He also has some mild anemia. His urinalysis has no proteinuria only and only small blood with specific gravity of 1.008. He has negative chest x-ray. Patient is aware that this liver somehow affected his kidney function according to do. He denies any history of hepatitis. Currently he is hemodynamically stable and does not really have any acute complaints and actually wanted to go home. 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, treated with surgery and chemo GI Medical History: Reports: Cirrhosis - Alcohol related Hematology Medical History: Reports Anemia Past Surgical History Past Surgical History: Reports: None Social History Information Source: Patient Lives with: Family Smoking Status: Never Smoker Frequency of Alcohol Use: Heavy - Quit alcohol 55 days ago Drugs: None Hx Prescription Drug Abuse: No - Advance Directive Resuscitation Status: Full Code Family History Family History: DM - Both sides of the family, Hypertension - Both sides of the family, Malignancy - Breast cancer in his sister, Other - Alcohol liver cirrhosis from his uncles Parental Family History Reviewed: Yes Children Family History Reviewed: Yes Sibling(s) Family History Reviewed.: NA Medication/Allergy Home Medications: Furosemide [Lasix 20 mg Tablet] 40 mg PO DAILY 09/11/18 Spironolactone [Aldactone 100 mg Tablet] 100 mg PO DAILY 09/11/18 Benzonatate [Tessalon Perles 100 mg Capsule] 100 mg PO TIDP PRN 09/12/18 Ciprofloxacin HCl [Cipro 500 mg Tablet] 500 mg PO DAILY 09/12/18 Pantoprazole Sodium [Protonix] 40 mg PO Q12 09/12/18 Allergies/Adverse Reactions: promethazine HCl [From Phenergan] Allergy (Intermediate, Verified 09/11/18 15:46) dystonic Review of Systems All systems: reviewed and no additional remarkable complaints except as stated Review of Systems: Constitutional: ABSENT: chills, fatigue, fever(s), headache(s), weight gain, weight loss Eyes: ABSENT: visual disturbances Ears: ABSENT: hearing changes Cardiovascular: ABSENT: chest pain, dyspnea on exertion, orthropnea, palpitations; admits edema Respiratory: ABSENT: cough, dyspnea, hemoptysis Gastrointestinal: ABSENT: abdominal pain, constipation, hematemesis, hematochezia, nausea, vomiting; admits episodes of diarrhea a week ago, admits abdominal distention Genitourinary: ABSENT: dysuria, hematuria Musculoskeletal: ABSENT: joint swelling Integumentary: ABSENT: rash, wounds Neurological: ABSENT: abnormal gait, abnormal speech, confusion, dizziness, focal weakness, numbness, syncope Psychiatric: ABSENT: anxiety, depression Endocrine: ABSENT: cold intolerance, heat intolerance, polydipsia, polyuria Hematologic/Lymphatic: ABSENT: easy bleeding, easy bruising, lymphadenopathy Physical Exam Vital Signs: Temp Pulse Resp BP Pulse Ox 99.2 F 96 14 100/58 L 98 09/12/18 11:28 09/12/18 16:00 09/12/18 16:00 09/12/18 11:28 09/12/18 16:00 Intake & Output 09/11/18 09/12/18 09/13/18 06:59 06:59 06:59 Intake Total 300 100 Balance 300 100 Weight 86.2 kg Exam: General appearance: No acute distress, cooperative, well-developed, well- nourished Head exam: PRESENT: atraumatic, normocephalic Eye exam: PRESENT: Conjunctiva [place], EOMI, PERRLA. Scleral icterus ABSENT: conjunctival injection Mouth exam: PRESENT: moist, neck supple, tongue midline Neck exam: PRESENT: full ROM. ABSENT: carotid bruit, JVD, lymphadenopathy, thyromegaly Respiratory exam: PRESENT: clear to auscultation bilaterally. ABSENT: rales, rhonchi, stridor, wheezes Cardiovascular exam: PRESENT: RRR, +S1, +S2. ABSENT: systolic murmur Pulses: PRESENT: normal radial pulses, normal dorsalis pedis pulses GI/Abdominal exam: PRESENT: normal bowel sounds, soft. Abdominal distention ABSENT: guarding, mass, tenderness Rectal exam: Deferred Extremities exam: PRESENT: full ROM. Grade 4 bilateral lower extremity pitting edema ABSENT: calf tenderness Musculoskeletal: PRESENT: full ROM. ABSENT: deformity Neurological exam: PRESENT: alert, Awake, Oriented to person, Oriented to place, Oriented to time, reflexes normal, CN II-XII grossly intact. ABSENT: motor sensory deficit Psychiatric exam: PRESENT: appropriate affect, normal mood. ABSENT: homicidal ideation, suicidal ideation Skin exam: PRESENT: intact, dry, warm. ABSENT: rash Results Laboratory Results: 09/12/18 05:00 09/12/18 16:00 09/11/18 09/12/18 09/12/18 16:00 05:00 05:00 WBC 10.2 RBC 2.61 L Hgb 9.1 L Hct 25.9 L MCV 99 H MCH 35.0 H MCHC 35.2 RDW 16.1 H Plt Count 148 L Seg Neutrophils % 75.4 Lymphocytes % 10.3 L Monocytes % 13.1 H Eosinophils % 0.9 Basophils % 0.3 Absolute Neutrophils 7.7 Absolute Lymphocytes 1.1 Absolute Monocytes 1.3 Absolute Eosinophils 0.1 Absolute Basophils 0.0 Sodium 134.2 L Potassium 2.8 L* Chloride 100 Carbon Dioxide 24 Anion Gap 10 BUN 25 H Creatinine 1.74 H Est GFR ( Amer) 51 L Est GFR (Non-Af Amer) 42 L Glucose 120 H Calcium 8.3 L Phosphorus 3.2 Magnesium 2.0 Total Bilirubin 7.6 H AST 48 ALT 37 Alkaline Phosphatase 245 H Total Protein 5.0 L Albumin 2.8 L Lipase 125.6 09/12/18 16:00 WBC RBC Hgb Hct MCV MCH MCHC RDW Plt Count Seg Neutrophils % Lymphocytes % Monocytes % Eosinophils % Basophils % Absolute Neutrophils Absolute Lymphocytes Absolute Monocytes Absolute Eosinophils Absolute Basophils Sodium 134.4 L Potassium 4.8 D Chloride 101 Carbon Dioxide 26 Anion Gap 7 BUN 23 H Creatinine 1.65 H Est GFR ( Amer) 54 L Est GFR (Non-Af Amer) 45 L Glucose 148 H Calcium 8.6 Phosphorus Magnesium Total Bilirubin AST ALT Alkaline Phosphatase Total Protein Albumin Lipase 09/11/18 16:00 Troponin I < 0.012 Impressions: Chest X-Ray 09/11/18 15:55 IMPRESSION: NO ACUTE RADIOGRAPHIC FINDING IN THE CHEST. Assessment & Plan - Diagnosis (1) Acute kidney injury superimposed on chronic kidney disease Is this a current diagnosis for this admission?: Yes Plan: Patient is nonoliguric. Likely cause of the patient's acute worsening of kidney function could be secondary to prerenal factors due to episodes of diarrhea. Patient appeared to have an underlying chronic kidney disease stage III. He does not have any significant proteinuria or microhematuria. Underlying kidney disease likely due to hepatorenal syndrome. No other risk factors for kidney disease. Current kidney function is actually improving almost close to baseline. Check urine sodium if specimen is available. Patient is certain that he has had possible abdominal ultrasound or CT scan at [facility] recently so I will hold any kidney ultrasound for now. Patient definitely does not need any renal re placement therapy. First lost the patient's kidney function continues to improve or stabilize from this point I think he can be safely discharged home. Patient indicated that he follows up at [facility] and also indicated that he would want to be followed for his kidneys at [facility] as well so I recommended that he sees a desktop publishing operator over there. (2) Hepatic cirrhosis Is this a current diagnosis for this admission?: Yes Plan: Alcohol induced. Patient quit alcohol for 55 days now. (3) Hypokalemia Is this a current diagnosis for this admission?: Yes Plan: Potassium replacements are being given. (4) Anemia in chronic illness Is this a current diagnosis for this admission?: Yes - Notes Notes: Thank you very much for this consultation. - Time Time Spent: 50 to 70 Minutes
[2018-09-12] MEDS ORDERED: SPIRONOLACTONE 25 MG TABLET PO ONE (19:12)
[2018-09-13] MEDS: HEPARIN SOD (PORCINE) 5,000 UNIT/ML 1 ML SYRINGE SUBCUT SCH (05:56)
[2018-09-13] MEDS ORDERED: SPIRONOLACTONE 25 MG TABLET PO SCH (10:00)
[2018-09-13] MEDS ORDERED: HEPARIN SOD (PORCINE) 5,000 UNIT/ML 1 ML SYRINGE SUBCUT SCH (10:00)
[2018-09-13] MEDS ORDERED: FUROSEMIDE 20 MG TABLET PO SCH (10:00)
[2018-09-13] MEDS: SPIRONOLACTONE 25 MG TABLET PO SCH (10:45)
[2018-09-13] MEDS: FOLIC ACID 1 MG TABLET PO SCH (10:46)
[2018-09-13] MEDS: THIAMINE HCL 100 MG TABLET PO SCH (10:47)
[2018-09-13 14:04] VITALS: BP 112/57
--- NOTE | 2018-09-13 19:22 | PDOC DISCHARGE SUMMARY ---
General - Admit/Disc Date/PCP Admission Date/Primary Care Provider: 09/11/18 19:25 HANH GTZ MD Discharge Date: 09/13/18 - Discharge Diagnosis (1) Hypokalemia Is this a current diagnosis for this admission?: Yes (2) Hepatic cirrhosis Is this a current diagnosis for this admission?: Yes (3) Acute kidney injury superimposed on chronic kidney disease Is this a current diagnosis for this admission?: Yes - Additional Information Resuscitation Status: Full Code Discharge Diet: As Tolerated Discharge Activity: Activity As Tolerated Prescriptions: Furosemide [Lasix 20 mg Tablet] 20 mg PO DAILY #30 tablet Spironolactone [Aldactone 100 mg Tablet] 50 mg PO DAILY #30 tablet Home Medications: Benzonatate [Tessalon Perles 100 mg Capsule] 100 mg PO TIDP PRN 09/12/18 Pantoprazole Sodium [Protonix] 40 mg PO Q12 09/12/18 Furosemide [Lasix 20 mg Tablet] 20 mg PO DAILY #30 tablet 09/13/18 Spironolactone [Aldactone 100 mg Tablet] 50 mg PO DAILY #30 tablet 09/13/18 History of Present Illness History of Present Illness: Admitting hospitalist's H&P: ROSALIE REN is a 48 year old male with a recent past medical history of acute alcoholic hepatitis leading to hepatic cirrhosis and renal failure. Miroslava ent was recently discharged from [facility] after starting Lasix, lactulose and Aldactone. Follow-up labs of revealed hypokalemia prompting a referral to the emergency room where he was found to have a potassium of 2.3, creatinine of 1.9 and total bilirubin of 8.6 from 12 at discharge from [facility]. Patient himself has no complaints aside from generalized weakness and abdominal distention. Denying abdominal pain fever nausea or vomiting. He is ordered albumin, IV potassium and referred to the hospitalist for admission. Patient denies alcohol use. Hospital Course Hospital Course: This is a 48 yr old male with a PMH of alcoholic liver cirrhosis and CKD who was recently discharged from [facility] who was presented after he was sent to the ER by his PCP due to hypokalemia. Patient says that he was discharged on lactulose from [facility] and started having 5- 6 times of bowel movements per day. He says on his regular day prior to taking lactulose, he had 3 BM/day. He was also taking lasix and aldactone. Potassium was low at 2.3. He was started on potassium supplements. Lactulose was d/blair. His diuretics were initially held. His bowel movement returned to baseline. His jaundice and abdominal distention also improved. His home diuretic regimen was resumed. His creatinine went back to baseline and his hypokalemia was also corrected. Plan was to recheck his BMP later today to reassess electrolyte abnormalities after resuming diuretics but patient on insisted on leaving and going home today. Physical Exam Vital Signs: Temp Pulse Resp BP Pulse Ox 98.6 F 123 H 18 112/57 L 98 09/13/18 14:02 09/13/18 14:02 09/13/18 14:02 09/13/18 14:02 09/13/18 14:02 Intake & Output 09/12/18 09/13/18 09/14/18 06:59 06:59 06:59 Intake Total 300 1840 1000 Balance 300 1840 1000 Weight 190 lb 0.615 oz 195 lb 12.328 oz General appearance: PRESENT: no acute distress, well-developed, well-nourished Head exam: PRESENT: atraumatic, normocephalic Eye exam: PRESENT: PERRLA, scleral icterus - improved since admission Ear exam: PRESENT: normal external ear exam Mouth exam: PRESENT: moist, tongue midline Neck exam: ABSENT: carotid bruit, JVD, lymphadenopathy, thyromegaly Respiratory exam: PRESENT: clear to auscultation keeley. ABSENT: rales, rhonchi, wheezes Cardiovascular exam: PRESENT: RRR. ABSENT: diastolic murmur, rubs, systolic murmur Pulses: PRESENT: normal dorsalis pedis pul GI/Abdominal exam: PRESENT: ascites, normal bowel sounds, soft. ABSENT: guarding, mass, organolmegaly, rebound, tenderness Rectal exam: PRESENT: deferred Neurological exam: PRESENT: alert, awake, oriented to person, oriented to place, oriented to time, oriented to situation, CN II-XII grossly intact. ABSENT: motor sensory deficit Results Laboratory Results: 09/12/18 05:00 09/12/18 16:00 09/11/18 16:00 Troponin I < 0.012 Impressions: Chest X-Ray 09/11/18 15:55 IMPRESSION: NO ACUTE RADIOGRAPHIC FINDING IN THE CHEST. Qualifiers - * PATIENT BEING DISCHARGED WITH ANY OF THE FOLLOWING DIAGNOSIS: No
== END 2018-09-13 14:20 | disposition home or self-care (01) | DRG 641 ==
LOC: ER 15:45 → EH 18:52 → OBSVTOIN 19:25 → 4S 21:55 → 4W 21:58
PROVIDERS: ADMIT Hospitalist; ATTEND Hospitalist
DX: E87.6 Hypokalemia (principal); N17.9 Acute kidney failure, unspecified; K70.30 Alcoholic cirrhosis of liver without ascites; N18.3 Chronic kidney disease, stage 3 (moderate); Z83.3 Family history of diabetes mellitus; Z82.49 Family history of ischemic heart disease and other diseases of the circulatory system; D63.1 Anemia in chronic kidney disease; Z92.21 Personal history of antineoplastic chemotherapy; Z85.028 Personal history of other malignant neoplasm of stomach
CPT/HCPCS: 36415; 71045; 80048; 80053; 80307; 81001; 82140; 83690; 83735; 84100; 84300; 84484; 85025; 85610; 85730; 93005; 93010; 96365; 96366; 96368; 99285; J1644; J3480; J3490; P9047

== ENCOUNTER 2018-09-18 07:25 | Day surgery (SDC) | payer SELFPAY ==
[2018-09-18 07:58] LABS: HEMATOCRIT 28.8 % (37.9-51.0); HEMOGLOBIN 9.8 g/dL (13.5-17.0); MEAN CORPUSCULAR HEMOGLOBIN 33.6 pg (27.0-33.4); MEAN CORPUSCULAR HGB CONC 34.1 g/dL (32.0-36.0); MEAN CORPUSCULAR VOLUME 99 fl (80-97); PLATELET COUNT 117 10^3/uL (150-450); RED BLOOD COUNT 2.92 10^6/uL (4.35-5.55); RED CELL DISTRIBUTION WIDTH 15.8 % (11.5-14.0); WHITE BLOOD COUNT 12.3 10^3/uL (4.0-10.5)
[2018-09-18 08:11] LABS: BLOOD UREA NITROGEN 26 mg/dL (7-20)
[2018-09-18 08:15] LABS: INTERNATIONAL RATION (INR) 1.31
[2018-09-18 08:16] LABS: PARTIAL THROMBOPLASTIN TIME 36.4 SEC (23.5-35.8)
--- NOTE | 2018-09-18 12:33 | RADIOLOGY REPORT (SQ) ---
EXAM DESCRIPTION: U/S ABD PARACENTESIS COMPLETED DATE/TIME: 09/18/2018 11:54 am REASON FOR STUDY: ASCITES K70.31 ALCOHOLIC CIRRHOSIS OF LIVER WITH ASCITES COMPARISON: None. LIMITATIONS: None. PROCEDURE: Procedure, risks, benefit, and alternative explained to patient who then gave written con sent. The left lower abdominal wall marked using ultrasound guidance. A time-out was called for cor rect marking verification. Abdomen prepped and draped using sterile technique. Local anesthesia achi eved using 3.0 ml of 1% lidocaine injection. A 6fr [id number] set was introduced into the perit buckner cavity. Fluid was drained. The catheter was removed and entry site was covered with sterile b andage. No immediate complications noted. Images acquired during the procedure were stored on PACS. FINDINGS: ENTRY SITE: Left lower quadrant FLUID VOLUME: 5,600 cc FLUID ANALYSIS: Cloudy straw OTHER: Fluid sent to the lab for testing. IMPRESSION: SUCCESSFUL ULTRASOUND GUIDED PARACENTESIS. COMMENT: Patient medication list reviewed:Yes- Quality ID# [id number]:Eligible professional attests to docu menting in the medical record they obtained, updated, or reviewed the patient's current medications. TECHNICAL DOCUMENTATION: JOB ID: [id number] [email or web address]- All Rights Reserved Reading location - IP/workstation name: [email or web address]
[2018-09-18 12:49] LABS: FLUID APPEARANCE CLOUDY; FLUID COLOR YELLOW; FLUID SOURCE ABDOMEN; FLUID TYPE PERITONEAL; FLUID VISCOSITY LIQUID
[2018-09-18 12:52] VITALS: BP 101/58
== END 2018-09-18 12:25 | disposition home or self-care (01) ==
LOC: RAD 07:25
PROVIDERS: ATTEND Internal Medicine Gastroenterology
DX: K70.31 Alcoholic cirrhosis of liver with ascites (principal); Z88.8 Allergy status to other drugs, medicaments and biological substances
CPT/HCPCS: 36415; 49083; 82565; 84520; 85027; 85610; 85730; 87070; 87075; 87205; 89050

== ENCOUNTER 2018-10-03 13:35 | Emergency (ER) | payer SELFPAY ==
[2018-10-03 13:42] VITALS: BP 113/69
[2018-10-03 14:52] LABS: ABSOLUTE EOSINOPHILS # (AUTO) 0.4 10^3/uL (0.0-0.6); ABSOLUTE LYMPHOCYTES (AUTO) 1.1 10^3/uL (0.5-4.7); ABSOLUTE MONOCYTES (AUTO) 1.4 10^3/uL (0.1-1.4); ABSOLUTE NEUT (AUTO) 8.5 10^3/uL (1.7-8.2); BASOPHILS % (AUTO) 0.2 % (0-2); EOSINOPHILS % (AUTO) 3.9 % (0-6); HEMATOCRIT 35.5 % (37.9-51.0); HEMOGLOBIN 12.3 g/dL (13.5-17.0); LYMPHOCYTES % (AUTO) 9.7 % (13-45); MEAN CORPUSCULAR HEMOGLOBIN 33.2 pg (27.0-33.4); MEAN CORPUSCULAR HGB CONC 34.8 g/dL (32.0-36.0); PLATELET COUNT 210 10^3/uL (150-450); RED BLOOD COUNT 3.71 10^6/uL (4.35-5.55); RED CELL DISTRIBUTION WIDTH 14.9 % (11.5-14.0); SEGMENTED NEUTROPHILS % (AUTO) 74.2 % (42-78); TOTAL CELLS COUNTED % (AUTO) 100 %; WHITE BLOOD COUNT 11.5 10^3/uL (4.0-10.5)
[2018-10-03 15:18] LABS: ALANINE AMINOTRANSFERASE 40 U/L (21-72); ALKALINE PHOSPHATASE 324 U/L (38-126); ANION GAP 10 (5-19); ASPARTATE AMINO TRANSFERASE 63 U/L (17-59); BILIRUBIN,DIRECT 2.5 mg/dL (0.0-0.4); BLOOD UREA NITROGEN 22 mg/dL (7-20); CALCIUM 8.5 mg/dL (8.4-10.2); CARBON DIOXIDE 25 mmol/L (22-30); CHLORIDE 90 mmol/L (98-107); GLUCOSE 97 mg/dL (75-110); SODIUM 125.4 mmol/L (137-145)
[2018-10-03 15:40] LABS: MEAN CORPUSCULAR VOLUME 95 fl (80-97)
--- NOTE | 2018-10-03 16:11 | RADIOLOGY REPORT (SQ) ---
EXAM DESCRIPTION: VENOUS UNILATERAL LOWER COMPLETED DATE/TIME: 10/03/2018 4:00 pm REASON FOR STUDY: left leg swelling COMPARISON: None. TECHNIQUE: Dynamic and static edwards scale and color images acquired of the left leg venous system. Se lected spectral images acquired with additional compression and augmentation maneuvers. The contralat eral common femoral vein and saphenofemoral junction were also imaged. Images stored on PACS. LIMITATIONS: None. FINDINGS: LEFT COMMON FEMORAL: Normal phasicity, compression and augmentation. No visualized echogenic material on g ray scale. No defects on color images. FEMORAL: Normal compression and augmentation. No visualized echogenic material on edwards scale. No defe cts on color images. POPLITEAL: Normal compression, augmentation. No visualized echogenic material on edwards scale. No defec ts on color images. CALF VESSELS: Normal compression, augmentation. No visualized echogenic material on edwards scale. No de fects on color images. GSV and SSV: Normal compression, augmentation. No visualized echogenic material on edwards scale. No def ects on color images. ANY DEEP VENOUS INSUFFICIENCY: Not evaluated. ANY EVIDENCE OF POPLITEAL CYST: No. OTHER: Subcutaneous edema over the left lower extremity soft tissues. RIGHT COMMON FEMORAL VEIN AND SAPHENOFEMORAL JUNCTION: Normal phasicity, compression and augmentation. No visualized echogenic material on edwards scale. No de fects on color images. IMPRESSION: NO EVIDENCE OF DVT OR SVT IN THE LEFT LEG. TECHNICAL DOCUMENTATION: JOB ID: [id number] [employer]- All Rights Reserved Reading location - IP/workstation name: [email or web address]
--- NOTE | 2018-10-03 18:18 | ER Document Report ---
Entered by AMANDA PARK SCRIBE 10/03/18 [id number] Acting as scribe for:JEOVANY ANGELES DO ED Extremity Problem, Lower - General Chief Complaint: Leg Pain Stated Complaint: LEG PAIN Time Seen by Provider: 10/03/18 14:15 Primary Care Provider: HANH GTZ MD [NO LOCAL MD] - Follow up as needed Mode of Arrival: Wheelchair Notes: 48-year-old male who presents to the emergency department today with complaints of bilateral leg swelling and erythema for approximately 10 days. Patient was diagnosed with lower extremity cellulitis at [facility] two days ago and was started on keflex and was given an injection of Rocephin. Patient states he went back for a recheck today and was sent here due to increasing swelling and erythema to his legs. Patient states he has not had a Doppler study done on his lower extremities. Patient denies any fevers. States that he woke up this morning his legs were of normal size and he thought they were significantly improved. Patient states that by the time he followed up with [facility] and had been walking around for a while his legs were significantly more swollen. Patient generally feels like he is improving rather than worsening. Patient has not been wearing compression hose. TRAVEL OUTSIDE OF THE [place] IN LAST 30 DAYS: No - Related Data Allergies/Adverse Reactions: promethazine HCl [From Phenergan] Allergy (Intermediate, Verified 10/03/18 13:37) dystonic Past Medical History - General Information source: Patient - Social History Smoking Status: Never Smoker Cigarette use (# per day): No Chew tobacco use (# tins/day): No Frequency of alcohol use: Heavy - former Drug Abuse: None Family History: Hypertension Patient has suicidal ideation: No Patient has homicidal ideation: No Renal/ Medical History: Reports: Hx End Stage Renal Disease GI Medical History: Reports: Hx Cirrhosis - Alcohol related Surgical Hx: Negative - Immunizations Hx Diphtheria, Pertussis, Tetanus Vaccination: No Review of Systems - Review of Systems Constitutional: denies: Fever EENT: No symptoms reported Cardiovascular: No symptoms reported Respiratory: No symptoms reported Gastrointestinal: No symptoms reported Genitourinary: No symptoms reported Male Genitourinary: No symptoms reported Musculoskeletal: See HPI, Leg swelling Skin: See HPI, Change in color Hematologic/Lymphatic: No symptoms reported Neurological/Psychological: No symptoms reported -: Yes All other systems reviewed and negative Physical Exam - Vital signs Vitals: Temp Pulse Resp BP Pulse Ox 98.3 F 120 H 18 113/69 100 10/03/18 13:41 10/03/18 13:41 10/03/18 13:41 10/03/18 13:41 10/03/18 13:41 Interpretation: Tachycardic - Notes Notes: PHYSICAL EXAM GENERAL: Alert, interacts well. No acute distress. HEAD: Normocephalic, atraumatic. EYES: Pupils equal, round, and reactive to light. Extraocular movements intact. Scleral icterus bilaterally. ENT: Oral mucosa moist, tongue midline. NECK: Full range of motion. Supple. Trachea midline. LUNGS: No respiratory distress. EXTREMITIES: Moves all 4 extremities spontaneously. Left leg is approximately twice as big as the right leg at the level of the calf. There is no weeping. 2+ pitting edema to left lower extremity, 1+ pitting edema to the right lower extremity. NEUROLOGICAL: Alert and oriented x3. Normal speech. PSYCH: Normal affect, normal mood. SKIN: Warm and dry. Erythema to the left leg extending up to the level of the knee. Erythema on the right leg extends to a few inches below the right knee. Course - Re-evaluation Re-evalutation: 10/03/18 16:14 CBC shows mild leukocytosis 11.5, this is improved compared to what was checked in the office today at 12.6, also improved compared to 2 days ago when in the office was 11.9, sodium is somewhat lower than usual but he does not have any depression in mental status, BUN and creatinine are actually improved, venous Doppler study is negative. Blood cultures are pending. At this time and we w ill broaden the patient's coverage to include not just staph but strep. A skin swab without any drainage is not sufficient to rule out staph infection. Patient is continue taking Keflex but also start taking Bactrim. Return for fevers or worsening erythema. Wear compression stockings and keep his legs elevated. - Vital Signs Vital signs: Temp Pulse Resp BP Pulse Ox 98.3 F 120 H 18 113/69 100 10/03/18 13:41 10/03/18 13:41 10/03/18 13:41 10/03/18 13:41 10/03/18 13:41 - Laboratory Result Diagrams: 10/03/18 14:40 10/03/18 14:40 Laboratory results interpreted by me: 10/03/18 10/03/18 14:40 14:40 WBC 11.5 H RBC 3.71 L Hgb 12.3 L Hct 35.5 L RDW 14.9 H Lymphocytes % 9.7 L Absolute Neutrophils 8.5 H Sodium 125.4 L Chloride 90 L BUN 22 H Creatinine 1.49 H Est GFR (Non-Af Amer) 51 L Total Bilirubin 4.0 H Direct Bilirubin 2.5 H AST 63 H Alkaline Phosphatase 324 H Total Protein 6.0 L Albumin 3.0 L Discharge - Discharge Clinical Impression: Bilateral lower leg cellulitis Condition: Stable Disposition: HOME, SELF-CARE Instructions: Cellulitis ([facility]) Additional Instructions: You need to wear compression stockings whenever you are walking around. You should keep your legs elevated as much as possible. I have continued your prescription for Keflex and added a new prescription for Bactrim. You must take both of these. If your redness worsens, if your swelling worsens, or you develop a fever or you develop any new or concerning symptoms please return to the emergency department immediately, you may need to be admitted. Otherwise follow-up with your doctor as an outpatient as scheduled. Prescriptions: Cephalexin Monohydrate [Keflex 500 mg Capsule] 1,000 mg PO BID #40 capsule Sulfamethoxazole/Trimethoprim [Bactrim Ds Tablet] 1 each PO BID #20 tablet Referrals: HANH GTZ MD [NO LOCAL MD] - Follow up as needed Scribe Attestation: 10/03/18 18:17 I personally performed the services described in the documentation, reviewed and edited the documentation which was dictated to the scribe in my presence, and it accurately records my words and actions. I personally performed the services described in the documentation, reviewed and edited the documentation which was dictated to the scribe in my presence, and it accurately records my words and actions.
== END 2018-10-03 16:22 | disposition home or self-care (01) ==
LOC: ER 13:35
DX: L03.116 Cellulitis of left lower limb (principal); L03.115 Cellulitis of right lower limb; M79.605 Pain in left leg; M79.604 Pain in right leg; M79.89 Other specified soft tissue disorders; N18.6 End stage renal disease
CPT/HCPCS: 36415; 80053; 85025; 87040; 93971; 99284

== ENCOUNTER 2019-01-07 11:21 | Day surgery (SDC) | payer SELFPAY ==
[2019-01-07 12:55] LABS: HEMOGLOBIN 13.4 g/dL (13.5-17.0); MEAN CORPUSCULAR HEMOGLOBIN 29.5 pg (27.0-33.4); MEAN CORPUSCULAR HGB CONC 34.3 g/dL (32.0-36.0); MEAN CORPUSCULAR VOLUME 86 fl (80-97); PLATELET COUNT 223 10^3/uL (150-450); RED BLOOD COUNT 4.54 10^6/uL (4.35-5.55); RED CELL DISTRIBUTION WIDTH 14.2 % (11.5-14.0); WHITE BLOOD COUNT 6.7 10^3/uL (4.0-10.5)
[2019-01-07 13:01] LABS: INTERNATIONAL RATION (INR) 1.12; PROTHROMBIN TIME 14.9 SEC (11.4-15.4)
[2019-01-07 13:16] LABS: BLOOD UREA NITROGEN 35 mg/dL (7-20)
[2019-01-07] MEDS ORDERED: ALBUMIN HUMAN 50 GM/200 ML RTUINJ IV PRN (14:58)
[2019-01-07 15:21] LABS: FLUID APPEARANCE OPAQUE; FLUID COLOR LIGHT YELLOW; FLUID SOURCE ASCITES; FLUID TYPE PERITONEAL; FLUID VISCOSITY LIQUID
--- NOTE | 2019-01-07 15:43 | RADIOLOGY REPORT (SQ) ---
EXAM DESCRIPTION: U/S ABD PARACENTESIS COMPLETED DATE/TIME: 01/07/2019 3:14 pm REASON FOR STUDY: ASCITES COMPARISON 09/18/2018 LIMITATIONS: None. PROCEDURE: After obtaining informed consent, the patient was brought to the ultrasound suite. The p rocedure was performed with the patient on a gurney. Ultrasound was used to identify a prominent poc ket of ascites in the left lower quadrant. An appropriate access site was selected. The patient was prepped and draped in usual sterile fashion. The access site was anesthetized with 6 mL 1% lidocai ne. A Mnur-G-Rhpyhgft needle was advanced into the fluid. After aspiration of fluid the needle, the catheter was advanced off the needle into the fluid. A total of 6,800 mL of cloudy straw-colored fl uid was removed. The patient tolerated the procedure well left the department in satisfactory conditi on. IMPRESSION: Successful ultrasound-guided paracentesis Because of the cloudiness of the ascites, specimens were sent to the lab for cell count and cytology. The studies are pending at the time of dictation. COMMENT: Patient medication list reviewed: Yes- Quality ID# [id number]:Eligible professional attests to doc umenting in the medical record they obtained, updated, or reviewed the patient's current medications. TECHNICAL DOCUMENTATION: JOB ID: [id number] [employer]- All Rights Reserved Reading location - IP/workstation name: [email or web address]
[2019-01-07 17:47] VITALS: BP 104/65
== END 2019-01-07 17:05 | disposition home or self-care (01) ==
LOC: RAD 11:21
PROVIDERS: ATTEND Internal Medicine Gastroenterology
DX: K70.31 Alcoholic cirrhosis of liver with ascites (principal)
CPT/HCPCS: 36415; 84520; 82565; 85027; 85610; 85730; 89050; 88162; 88305 ×2; 49083; P9047

== ENCOUNTER 2019-01-16 13:06 | Inpatient (IN) | payer SELFPAY ==
--- NOTE | 2019-01-16 14:29 | ER Document Report ---
ED Medical Screen (RME) - General Chief Complaint: Abnormal Lab Results Stated Complaint: ABNORMAL LABS Time Seen by Provider: 01/16/19 14:18 Primary Care Provider: MIGUEL SALDANA PA [Primary Care Provider] - Follow up as needed Mode of Arrival: Ambulatory Information source: Patient Notes: Patient is a 48-year-old male comes emergency room stating he was sent by his erco machine operator Dr. Hernadez from [facility]. Patient states that Dr. Hernadez informed him that his sodium was low and he needed to go to the ER to have it checked out replenished. Patient has a history of cirrhosis of the liver and had a paracentesis done here 1 week ago. He states that they took him off his diuretics after the paracentesis. He states that the swelling in his belly is started to come back even worse than before. He is upset because he thought all of the specialist has been to have started to correct this problem and now it seems to be getting worse. He has not been on any diuretics since the last paracentesis. He denies any nausea vomiting or diarrhea. TRAVEL OUTSIDE OF THE [place] IN LAST 30 DAYS: No - Related Data Allergies/Adverse Reactions: promethazine HCl [From Phenergan] Allergy (Intermediate, Verified 01/16/19 13:18) dystonic Past Medical History - General Information source: Patient - Social History Cigarette use (# per day): No Chew tobacco use (# tins/day): No Frequency of alcohol use: None Drug Abuse: None Lives with: Family Family history: Reviewed & Not Pertinent - Past Medical History Cardiac Medical History: Denies: Hx Coronary Artery Disease, Hx Heart Attack, Hx Hypertension Pulmonary Medical History: Denies: Hx Asthma, Hx Bronchitis, Hx COPD, Hx Pneumonia Neurological Medical History: Denies: Hx Cerebrovascular Accident, Hx Seizures Renal/ Medical History: Reports: Hx End Stage Renal Disease. Denies: Hx Peritoneal Dialysis GI Medical History: Reports: Hx Cirrhosis - Alcohol related Musculoskeltal Medical History: Denies Hx Arthritis Psychiatric Medical History: Denies: Hx Depression - Immunizations Hx Diphtheria, Pertussis, Tetanus Vaccination: No History of Influenza Vaccine for 06/2017 - 11/2017 Season: No Review of Systems - Review of Systems Constitutional: No symptoms reported EENT: No symptoms reported Cardiovascular: No symptoms reported Respiratory: No symptoms reported Gastrointestinal: No symptoms reported Genitourinary: No symptoms reported Male Genitourinary: No symptoms reported Musculoskeletal: No symptoms reported Skin: No symptoms reported Hematologic/Lymphatic: No symptoms reported Neurological/Psychological: No symptoms reported -: Yes All other systems reviewed and negative Physical Exam - Vital signs Vitals: Temp Pulse Resp BP Pulse Ox 97.7 F 105 H 16 104/65 100 01/16/19 13:53 01/16/19 13:53 01/16/19 13:53 01/16/19 13:53 01/16/19 13:53 Interpretation: Hypotensive, Tachycardic - Notes Notes: PHYSICAL EXAMINATION: GENERAL: Patient is a well-nourished well-developed 48-year-old male who is in no apparent distress on physical exam. He does however appear to be uncomfortable. He does display mild amount of jaundice HEAD: Atraumatic, normocephalic. EYES: Pupils equal round and reactive to light, extraocular movements intact, sclera normal. No jaundice noted here LUNGS: Breath sounds clear to auscultation bilaterally and equal. No wheezes rales or rhonchi. HEART: tachycardic rate and rhythm without murmurs ABDOMEN: Examination of the abdomen shows it to be moderately distended and firm to palpation. Bowel sounds are present but barely audible. Musculoskeletal: Normal range of motion, no pitting or edema. No cyanosis. NEUROLOGICAL: Normal speech, normal gait. Normal sensory, motor exams PSYCH: Normal mood, normal affect. SKIN: Warm, as noted above General patient appears to have a slightly yellowish to the skin. Course - Vital Signs Vital signs: Temp Pulse Resp BP Pulse Ox 97.7 F 105 H 16 104/65 100 01/16/19 13:53 01/16/19 13:53 01/16/19 13:53 01/16/19 13:53 01/16/19 13:53 Doctor's Discharge - Discharge Referrals: MIGUEL SALDANA PA [Primary Care Provider] - Follow up as needed
[2019-01-16 15:13] LABS: ABSOLUTE BASOPHILS # (AUTO) 0.1 10^3/uL (0.0-0.2); ABSOLUTE EOSINOPHILS # (AUTO) 0.1 10^3/uL (0.0-0.6); ABSOLUTE LYMPHOCYTES (AUTO) 1.4 10^3/uL (0.5-4.7); ABSOLUTE MONOCYTES (AUTO) 1.4 10^3/uL (0.1-1.4); ABSOLUTE NEUT (AUTO) 7.4 10^3/uL (1.7-8.2); BASOPHILS % (AUTO) 0.6 % (0-2); HEMATOCRIT 40.8 % (37.9-51.0); HEMOGLOBIN 13.9 g/dL (13.5-17.0); LYMPHOCYTES % (AUTO) 13.7 % (13-45); MEAN CORPUSCULAR HEMOGLOBIN 29.3 pg (27.0-33.4); MEAN CORPUSCULAR HGB CONC 34.1 g/dL (32.0-36.0); MEAN CORPUSCULAR VOLUME 86 fl (80-97); MONOCYTES % (AUTO) 13.7 % (3-13); PLATELET COUNT 319 10^3/uL (150-450); RED BLOOD COUNT 4.75 10^6/uL (4.35-5.55); RED CELL DISTRIBUTION WIDTH 14.2 % (11.5-14.0); TOTAL CELLS COUNTED % (AUTO) 100 %; WHITE BLOOD COUNT 10.4 10^3/uL (4.0-10.5)
[2019-01-16 15:28] LABS: ALANINE AMINOTRANSFERASE 42 U/L (21-72); ALBUMIN 3.1 g/dL (3.5-5.0); ALKALINE PHOSPHATASE 208 U/L (38-126); ASPARTATE AMINO TRANSFERASE 67 U/L (17-59); BILIRUBIN,DIRECT 1.2 mg/dL (0.0-0.4); BILIRUBIN,TOTAL 2.4 mg/dL (0.2-1.3); BLOOD UREA NITROGEN 47 mg/dL (7-20); CALCIUM 9.2 mg/dL (8.4-10.2); CARBON DIOXIDE 21 mmol/L (22-30); CHLORIDE 87 mmol/L (98-107); GLUCOSE 99 mg/dL (75-110); LIPASE 168.1 U/L (23-300); TOTAL PROTEIN 5.4 g/dL (6.3-8.2)
[2019-01-16 15:32] LABS: ANION GAP 12 (5-19)
[2019-01-16 15:37] LABS: SODIUM 120.4 mmol/L (137-145)
--- NOTE | 2019-01-16 16:55 | ER Document Report ---
ED General - General Chief Complaint: Abnormal Lab Results Stated Complaint: ABNORMAL LABS Time Seen by Provider: 01/16/19 14:18 Primary Care Provider: MIGUEL SALDANA PA [Primary Care Provider] - Follow up as needed Mode of Arrival: Ambulatory Information source: Patient Notes: Patient is a 48-year-old male comes emergency room stating he was sent by his bellhop service captain Dr. Hernadez from [facility]. Patient states that Dr. Hernadez informed him that his sodium was low and he needed to go to the ER to have it checked out replenished. Patient has a history of cirrhosis of the liver and had a paracentesis done here 1 week ago. He states that they took him off his diuretics after the paracentesis. He states that the swelling in his belly is started to come back even worse than before. He is upset because he thought all of the specialist has been to have started to correct this problem and now it seems to be getting worse. He has not been on any diuretics since the last paracentesis. He denies any nausea vomiting or diarrhea. TRAVEL OUTSIDE OF THE [place] IN LAST 30 DAYS: No TRAVEL OUTSIDE OF THE [place] IN LAST 30 DAYS: No - HPI Onset: Last week Onset/Duration: Worse Quality of pain: Fullness Severity: Moderate Pain Level: 3 Associated symptoms: Shortness of breath Exacerbated by: Denies Relieved by: Denies Similar symptoms previously: Yes Recently seen / treated by doctor: Yes - Related Data Allergies/Adverse Reactions: promethazine HCl [From Phenergan] Allergy (Intermediate, Verified 01/16/19 13:18) dystonic Past Medical History - General Information source: Patient, Relative - Social History Smoking Status: Never Smoker Cigarette use (# per day): No Chew tobacco use (# tins/day): No Smoking Education Provided: No Frequency of alcohol use: None Drug Abuse: None Lives with: Family Family History: Reviewed & Not Pertinent, Hypertension - Past Medical History Cardiac Medical History: Denies: Hx Coronary Artery Disease, Hx Heart Attack, Hx Hypertension Pulmonary Medical History: Denies: Hx Asthma, Hx Bronchitis, Hx COPD, Hx Pneumonia Neurological Medical History: Denies: Hx Cerebrovascular Accident, Hx Seizures Renal/ Medical History: Reports: Hx End Stage Renal Disease. Denies: Hx Peritoneal Dialysis GI Medical History: Reports: Hx Cirrhosis - Alcohol related Musculoskeletal Medical History: Denies Hx Arthritis Psychiatric Medical History: Denies: Hx Depression - Immunizations Hx Diphtheria, Pertussis, Tetanus Vaccination: No Review of Systems - Review of Systems Constitutional: No symptoms reported EENT: No symptoms reported Cardiovascular: No symptoms reported Respiratory: No symptoms reported Gastrointestinal: See HPI Genitourinary: No symptoms reported Male Genitourinary: No symptoms reported Musculoskeletal: No symptoms reported Skin: No symptoms reported Hematologic/Lymphatic: No symptoms reported Neurological/Psychological: No symptoms reported -: Yes All other systems reviewed and negative Physical Exam - Vital signs Vitals: Temp Pulse Resp BP Pulse Ox 97.7 F 105 H 16 104/65 100 01/16/19 13:53 01/16/19 13:53 01/16/19 13:53 01/16/19 13:53 01/16/19 13:53 Interpretation: Hypotensive, Tachycardic - Notes Notes: PHYSICAL EXAMINATION: GENERAL: Patient is a well-nourished well-developed 48-year-old male is in no apparent distress on physical examination today however he does appear to be uncomfortable. Does display also a slight yellowish hue to the skin. HEAD: Atraumatic, normocephalic. EYES: Pupils equal round and reactive to light, extraocular movements intact, sclera normal appearing no jaundice seen ENT: Nares patent, oropharynx clear without exudates. Mildly dry oral mucosa NECK: Normal range of motion, supple without lymphadenopathy LUNGS: Auscultation patient's lung rosas shows he has bilateral breath sounds breath sounds are decreased throughout but no rhonchi or wheeze noted on auscultation. Questionable rales in the bases noted. HEART: tachycardic rate and rhythm without murmurs ABDOMEN: Examination patient's abdomen shows he has moderate amount of ascites on palpation. Bowel sounds are present but dulled secondary to fluid. Wave is noted. Musculoskeletal: Normal range of motion, no pitting or edema. No cyanosis. NEUROLOGICAL: Normal speech, normal gait. Normal sensory, motor exams on examination patient's neurologic exam currently is intact PSYCH: Normal mood, normal affect. SKIN: Warm, Dry, this stated earlier in general patient does display a yellowish hue/jaundiced type of a presentation with no scleral involvement Course - Re-evaluation Re-evalutation: 01/16/19 16:55 Patient sodium came back at 120.4 his renal functions also came back elevated more than baseline for him and have been steadily creeping up to the area is more concerning. He had a BUN of 45 and a creatinine of 2.18. - Vital Signs Vital signs: Temp Pulse Resp BP Pulse Ox 97.7 F 105 H 16 104/65 100 01/16/19 13:53 01/16/19 13:53 01/16/19 13:53 01/16/19 13:53 01/16/19 13:53 - Laboratory Result Diagrams: 01/16/19 14:53 01/16/19 14:53 Laboratory results interpreted by me: 01/16/19 01/16/19 14:53 14:53 RDW 14.2 H Monocytes % 13.7 H Sodium 120.4 L* Chloride 87 L Carbon Dioxide 21 L BUN 47 H Creatinine 2.18 H Est GFR ( Amer) 39 L Est GFR (Non-Af Amer) 33 L Total Bilirubin 2.4 H Direct Bilirubin 1.2 H AST 67 H Alkaline Phosphatase 208 H Total Protein 5.4 L Albumin 3.1 L Discharge - Discharge Clinical Impression: Hyponatremia, Dehydration Ascites Qualifiers: Ascites type: due to alcoholic hepatitis Qualified Code(s): K70.11 - Alcoholic hepatitis with ascites Acute renal failure Qualifiers: Acute renal failure type: unspecified Qualified Code(s): N17.9 - Acute kidney failure, unspecified Condition: Stable Disposition: ADMITTED INPATIENT Admitting Provider: [facility] (Hospitalist) Unit Admitted: Telemetry Referrals: MIGUEL SALDANA PA [Primary Care Provider] - Follow up as needed
[2019-01-16] MEDS ORDERED: ONDANSETRON HCL INJ/PF 4 MG/2 ML SDV IV PRN (17:03)
[2019-01-16] MEDS ORDERED: PROMETHAZINE HCL INJ 25 MG/1 ML VIAL IV PRN (17:03)
[2019-01-16] MEDS ORDERED: IPRATROPIUM/ALBUTEROL 0.5-2.5 MG/3 ML AMPUL NEB PRN (17:03)
--- NOTE | 2019-01-16 18:04 | PDOC H&P ---
History of Present Illness Admission Date/PCP: 01/16/19 17:11 AJ RAMIREZ History of Present Illness: ROSALIE REN is a 48 year old male past medical history of alcoholic cirrhosis, CKD, who was sent to ED by his client experience specialist Dr. Hernadez from [facility] for evaluation of hyponatremia. Patient does state that he had a routine labs yesterday and today was called to go to ED because of his hyponatremia. He noticed that his abdominal girth increasing, so he cut down on his fluid intake. He takes about 64 ounces of fluids in 24 hours, along with low-sodium diet. He has also noticed that his urine output has decreased. Started on Lasix on 08/2019 which was DC'd recently had a paracentesis here at [place] last Saturday. He denies any fever, chills, shortness of breath, chest pain, nausea, vomiting, diarrhea, constipation. 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 He diagnosed with liver cirrhosis. Followed by Dr. Hernadez client experience specialist as outpatient. SBP 104/65, temperature 97.7, pulse 105, respirations 16, SPO2 100% on room air. CBC within normal limits. Na 120.4, potassium 5.0, bicarb 21, creatinine 2.18 up from baseline of 1.66. Albumin 3.1. Past Medical History Cardiac Medical History: Denies: Coronary Artery Disease, Myocardial Infarction, Hypertension Pulmonary Medical History: Denies: Asthma, Bronchitis, Chronic Obstructive Pulmonary Disease (COPD), Pneumonia Neurological Medical History: Denies: Seizures Renal/ Medical History: Reports: End Stage Renal Disease GI Medical History: Reports: Cirrhosis - Alcohol related Musculoskeltal Medical History: Denies: Arthritis Psychiatric Medical History: Denies: Depression Hematology: Denies: Anemia Social History Lives with: Family Smoking Status: Never Smoker Frequency of Alcohol Use: Heavy - Quit alcohol 55 days ago Drugs: None Hx Prescription Drug Abuse: No Family History Family History: Reviewed & Not Pertinent, Hypertension Parental Family History Reviewed: Yes Children Family History Reviewed: Yes Sibling(s) Family History Reviewed.: Yes Medication/Allergy Home Medications: Pantoprazole Sodium [Protonix] 40 mg PO DAILY 09/12/18 Ciprofloxacin HCl [Cipro] 500 mg PO DAILY 01/07/19 Fluticasone Propionate [Flonase Nasal [place] 50 Mcg/[place] 16 gm] spray 01/16/19 Furosemide [Lasix 80 mg Tablet] 80 mg PO QAM 01/16/19 Loratadine [Claritin 10 mg Tablet] 10 mg PO DAILY 01/16/19 Spironolactone [Aldactone] mg PO 01/16/19 Allergies/Adverse Reactions: promethazine HCl [From Phenergan] Allergy (Intermediate, Verified 01/16/19 13:18) dystonic Review of Systems Review of Systems: as per hpi Physical Exam Vital Signs: Temp Pulse Resp BP Pulse Ox 97.7 F 105 H 23 H 104/65 100 01/16/19 13:53 01/16/19 13:53 01/16/19 17:36 01/16/19 13:53 01/16/19 13:53 Intake & Output 01/15/19 01/16/19 01/17/19 06:59 06:59 06:59 Weight 69.2 kg General appearance: PRESENT: no acute distress, well-developed, well-nourished, other - Bitemporal wasting Respiratory exam: PRESENT: crackles - Right lower lobe.. ABSENT: rales, rhonchi, wheezes Pulses: PRESENT: normal dorsalis pedis pul GI/Abdominal exam: PRESENT: normal bowel sounds, soft, other - Positive fluid waves.. ABSENT: distended, guarding, mass, organolmegaly, rebound, tenderness Extremities exam: PRESENT: full ROM. ABSENT: calf tenderness, clubbing, pedal edema Neurological exam: PRESENT: alert, awake, oriented to person, oriented to place, oriented to time, oriented to situation, CN II-XII grossly intact. ABSENT: motor sensory deficit Results Laboratory Results: 01/16/19 14:53 01/16/19 14:53 01/16/19 01/16/19 14:53 14:53 WBC 10.4 RBC 4.75 Hgb 13.9 Hct 40.8 MCV 86 MCH 29.3 MCHC 34.1 RDW 14.2 H Plt Count 319 Seg Neutrophils % 71.0 Lymphocytes % 13.7 Monocytes % 13.7 H Eosinophils % 1.0 Basophils % 0.6 Absolute Neutrophils 7.4 Absolute Lymphocytes 1.4 Absolute Monocytes 1.4 Absolute Eosinophils 0.1 Absolute Basophils 0.1 Sodium 120.4 L* Potassium 5.0 Chloride 87 L Carbon Dioxide 21 L Anion Gap 12 BUN 47 H Creatinine 2.18 H Est GFR ( Amer) 39 L Est GFR (Non-Af Amer) 33 L Glucose 99 Calcium 9.2 Total Bilirubin 2.4 H AST 67 H ALT 42 Alkaline Phosphatase 208 H Total Protein 5.4 L Albumin 3.1 L Lipase 168.1 Assessment and Plan - Diagnosis (1) Hyponatremia Is this a current diagnosis for this admission?: Yes Plan: Hypervolemic hyponatremia, most likely due to effective arterial volume depletion by worsening ascites caused by underlying cirrhosis. We will obtain urine Na, FeNa, Patient has worsening renal function, signs of volume overload (positive crackles on the right lower lung). To avoid worsening of volume overload will initially start on fluid restriction, strict in and out, hepatic diet. BMP every 6 hours. If worsening or not corrected will start on 3% sodium goal of correcting sodium about 8 mEq in 24 hours. Admit to IMCU. Monitor for seizures. (2) Ascites Qualifiers: Ascites type: due to alcoholic hepatitis Qualified Code(s): K70.11 - Alcoholic hepatitis with ascites Is this a current diagnosis for this admission?: Yes Plan: Positive fluid waves. Negative TTP. Will consult radiology for possible paracentesis. (3) Acute kidney injury superimposed on chronic kidney disease Is this a current diagnosis for this admission?: No Plan: Likely due to decreased effective arterial volume due to worsening cirrhosis. Monitor volume status, strict in and out, renal diet. If does not improve will consult nephrology. (4) Hepatic cirrhosis Qualifiers: Hepatic cirrhosis type: alcoholic cirrhosis Is this a current diagnosis for this admission?: No Plan: Followed by Dr. Hernadez as outpatient. Monitor for bleeding and volume status. Platelets within normal limits. Outpatient GI follow-up. Having about 3 bowel movements a day and was told by his client experience specialist that he does not need to lactulose at this point.
[2019-01-16 18:49] LABS: BLOOD UREA NITROGEN 50 mg/dL (7-20); CARBON DIOXIDE 20 mmol/L (22-30); CHLORIDE 87 mmol/L (98-107); GLUCOSE 100 mg/dL (75-110); POTASSIUM 5.7 mmol/L (3.6-5.0)
[2019-01-16 18:51] LABS: ANION GAP 13 (5-19)
[2019-01-16 18:58] LABS: SODIUM 119.5 mmol/L (137-145)
[2019-01-16 21:18] LABS: URINE CREATININE 134.4 mg/dL (22-328)
[2019-01-16 21:19] LABS: URINE SODIUM < 5 mmol/L (30-90)
[2019-01-16] MEDS: HEPARIN SOD (PORCINE) 5,000 UNIT/ML 1 ML SYRINGE SUBCUT SCH (22:43)
[2019-01-16 23:24] LABS: INTERNATIONAL RATION (INR) 1.09; PROTHROMBIN TIME 14.7 SEC (11.4-15.4)
[2019-01-17 01:13] LABS: ANION GAP 12 (5-19); BLOOD UREA NITROGEN 49 mg/dL (7-20); CALCIUM 8.8 mg/dL (8.4-10.2); CARBON DIOXIDE 20 mmol/L (22-30); CHLORIDE 90 mmol/L (98-107); GLUCOSE 94 mg/dL (75-110); POTASSIUM 5.1 mmol/L (3.6-5.0); SODIUM 121.9 mmol/L (137-145)
[2019-01-17] MEDS: HEPARIN SOD (PORCINE) 5,000 UNIT/ML 1 ML SYRINGE SUBCUT SCH ×2 (05:23→14:26)
[2019-01-17 06:36] LABS: ABSOLUTE EOSINOPHILS # (AUTO) 0.1 10^3/uL (0.0-0.6); ABSOLUTE LYMPHOCYTES (AUTO) 1.3 10^3/uL (0.5-4.7); ABSOLUTE MONOCYTES (AUTO) 1.4 10^3/uL (0.1-1.4); ABSOLUTE NEUT (AUTO) 6.4 10^3/uL (1.7-8.2); BASOPHILS % (AUTO) 0.4 % (0-2); EOSINOPHILS % (AUTO) 1.2 % (0-6); HEMATOCRIT 37.6 % (37.9-51.0); LYMPHOCYTES % (AUTO) 13.8 % (13-45); MEAN CORPUSCULAR HEMOGLOBIN 29.7 pg (27.0-33.4); MEAN CORPUSCULAR HGB CONC 34.6 g/dL (32.0-36.0); MEAN CORPUSCULAR VOLUME 86 fl (80-97); MONOCYTES % (AUTO) 15.1 % (3-13); PLATELET COUNT 302 10^3/uL (150-450); RED BLOOD COUNT 4.39 10^6/uL (4.35-5.55); RED CELL DISTRIBUTION WIDTH 14.2 % (11.5-14.0); SEGMENTED NEUTROPHILS % (AUTO) 69.5 % (42-78); TOTAL CELLS COUNTED % (AUTO) 100 %; WHITE BLOOD COUNT 9.3 10^3/uL (4.0-10.5)
[2019-01-17 06:59] LABS: BLOOD UREA NITROGEN 49 mg/dL (7-20); CALCIUM 8.9 mg/dL (8.4-10.2); CARBON DIOXIDE 18 mmol/L (22-30); CHLORIDE 89 mmol/L (98-107); GLUCOSE 76 mg/dL (75-110); PHOSPHORUS 5.2 mg/dL (2.5-4.5)
[2019-01-17 07:02] LABS: ANION GAP 14 (5-19)
[2019-01-17 07:03] LABS: SODIUM 120.7 mmol/L (137-145)
[2019-01-17] MEDS ORDERED: ALBUMIN HUMAN 12.5 GM/50 ML RTUINJ IV SCH (07:30)
--- NOTE | 2019-01-17 08:49 | RADIOLOGY REPORT (SQ) ---
EXAM DESCRIPTION: U/S ABDOMEN LIMITED W/O DOP COMPLETED DATE/TIME: 01/17/2019 8:37 am REASON FOR STUDY: CHECK FOR ASCITES COMPARISON: None. TECHNIQUE: Limited grayscale imaging is performed to assess for ascites. There is quadrants scanned with measurements obtained. LIMITATIONS: None. FINDINGS: Ascites is present, considerable. In the right lower quadrant, depth of 2.4 cm from skin to fluid, 5.6 cm from skin to mid fluid. In the left lower quadrant skin to fluid depth is 2.1 cm. 5.4 cm from skin to mid fluid. IMPRESSION: Ascites. Patient appears to have just had paracentesis 01/07/2019 and is reportedly sched uled for paracentesis next week. TECHNICAL DOCUMENTATION: JOB ID: [id number] [employer]- All Rights Reserved Reading location - IP/workstation name: [email or web address]
[2019-01-17] MEDS ORDERED: LORATADINE 10 MG TABLET PO SCH (10:00)
[2019-01-17] MEDS ORDERED: PANTOPRAZOLE SODIUM 40 MG TABLET.DR PO SCH (10:00)
[2019-01-17] MEDS ORDERED: CIPROFLOXACIN HCL 500 MG TABLET PO SCH (10:00)
[2019-01-17] MEDS: ALBUMIN HUMAN 12.5 GM/50 ML RTUINJ IV SCH ×4 (10:12→15:10)
[2019-01-17 12:17] VITALS: BP 112/60
--- NOTE | 2019-01-17 13:08 | RADIOLOGY REPORT (SQ) ---
EXAM DESCRIPTION: U/S ABD PARACENTESIS COMPLETED DATE/TIME: 01/17/2019 12:31 pm REASON FOR STUDY: Ascitis COMPARISON: None. LIMITATIONS: None. PROCEDURE: Procedure, risks, benefit, and alternative explained to patient who then gave written con sent. The left lower abdominal wall marked using ultrasound guidance. A time-out was called for cor rect marking verification. Abdomen prepped and draped using sterile technique. Local anesthesia achi eved using 10 ml of 1% lidocaine injection. A 6fr [id number]-[id number] set was introduced into the perito emanuel cavity. Fluid was drained. The catheter was removed and entry site was covered with sterile ba ndage. No immediate complications noted. Images acquired during the procedure were stored on PACS. FINDINGS: ENTRY SITE: Left lower FLUID VOLUME: 6000 cc FLUID ANALYSIS: Milky white OTHER: Fluid sent to the lab for testing. IMPRESSION: SUCCESSFUL ULTRASOUND GUIDED PARACENTESIS. COMMENT: Patient medication list reviewed:Yes- Quality ID# [id number]:Eligible professional attests to docu menting in the medical record they obtained, updated, or reviewed the patient's current medications. TECHNICAL DOCUMENTATION: JOB ID: [id number] [employer]- All Rights Reserved Reading location - IP/workstation name: [email or web address]
[2019-01-17 13:44] LABS: ANION GAP 13 (5-19); BLOOD UREA NITROGEN 50 mg/dL (7-20); CALCIUM 9.1 mg/dL (8.4-10.2); CARBON DIOXIDE 20 mmol/L (22-30); CHLORIDE 89 mmol/L (98-107); GLUCOSE 84 mg/dL (75-110); SODIUM 122.2 mmol/L (137-145)
--- NOTE | 2019-01-17 16:16 | PDOC PROGRESS REPORT ---
Subjective Progress Note for:: 01/17/19 Subjective:: ROSALIE REN is a 48 year old male past medical history of alcoholic cirrhosis, CKD, who was sent to ED by his hot air furnace installer and repairer Dr. Hernadez from [facility] for evaluation of hyponatremia. Patient does state that he had a routine labs yesterday and today was called to go to ED because of his hyponatremia. He noticed that his abdominal girth increasing, so he cut down on his fluid intake. He takes about 64 ounces of fluids in 24 hours, along with low-sodium diet. He has also noticed that his urine output has decreased. Started on Lasix on 08/2019 which was DC'd recently had a paracentesis here at [place] last Saturday. He denies any fever, chills, shortness of breath, chest pain, nausea, vomiting, diarrhea, constipation. 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 He diagnosed with liver cirrhosis. Followed by Dr. Hernadez hot air furnace installer and repairer as outpatient. SBP 104/65, temperature 97.7, pulse 105, respirations 16, SPO2 100% on room air. CBC within normal limits. Na 120.4, potassium 5.0, bicarb 21, creatinine 2.18 up from baseline of 1.66. Albumin 3.1. 01/17/2019. No acute events overnight. Patient could not get a good night sleep due to worsening ascites. Denies any fever, chills, nausea, vomiting, diarrhea, constipation or any urinary symptoms. SBP 911 09, T-max 97.9, HR 059824, RR 1622, SPO2 100% RA. Sodium 122.2 up from 120.4 admission, K 5.0 down from 5.7, creatinine 2.31 up from 2.28 Reason For Visit: HYPONATREMIA, ASCITES, ACUTE RENAL FAILURE, Physical Exam Vital Signs: Temp Pulse Resp BP Pulse Ox 97.9 F 111 H 20 112/60 100 01/17/19 07:54 01/17/19 12:15 01/17/19 12:15 01/17/19 12:15 01/17/19 12:15 Intake & Output 01/16/19 01/17/19 01/18/19 06:59 06:59 06:59 Intake Total 350 504 Output Total 150 100 Balance 200 404 Weight 69.7 kg General appearance: PRESENT: no acute distress, well-developed, well-nourished Head exam: PRESENT: atraumatic, normocephalic Respiratory exam: PRESENT: clear to auscultation keeley. ABSENT: rales, rhonchi, wheezes Cardiovascular exam: PRESENT: RRR. ABSENT: diastolic murmur, rubs, systolic murmur GI/Abdominal exam: PRESENT: normal bowel sounds, soft, other - ascitis much impr ani. Status post paracentesis.. ABSENT: distended, guarding, mass, organolmegaly, rebound, tenderness Rectal exam: PRESENT: deferred Results Laboratory Results: 01/17/19 05:56 01/17/19 12:48 01/16/19 01/17/19 01/17/19 18:00 00:50 05:56 WBC 9.3 RBC 4.39 Hgb 13.0 L Hct 37.6 L MCV 86 MCH 29.7 MCHC 34.6 RDW 14.2 H Plt Count 302 Seg Neutrophils % 69.5 Lymphocytes % 13.8 Monocytes % 15.1 H Eosinophils % 1.2 Basophils % 0.4 Absolute Neutrophils 6.4 Absolute Lymphocytes 1.3 Absolute Monocytes 1.4 Absolute Eosinophils 0.1 Absolute Basophils 0.0 Sodium 119.5 L* 121.9 L Potassium 5.7 H 5.1 H Chloride 87 L 90 L Carbon Dioxide 20 L 20 L Anion Gap 13 12 BUN 50 H 49 H Creatinine 2.28 H 2.24 H Est GFR ( Amer) 37 L 38 L Est GFR (Non-Af Amer) 31 L 32 L Glucose 100 94 Calcium 9.0 8.8 Phosphorus Magnesium Ammonia 01/17/19 01/17/19 01/17/19 05:56 05:56 12:48 WBC RBC Hgb Hct MCV MCH MCHC RDW Plt Count Seg Neutrophils % Lymphocytes % Monocytes % Eosinophils % Basophils % Absolute Neutrophils Absolute Lymphocytes Absolute Monocytes Absolute Eosinophils Absolute Basophils Sodium 120.7 L* 122.2 L Potassium 5.0 5.0 Chloride 89 L 89 L Carbon Dioxide 18 L 20 L Anion Gap 14 13 BUN 49 H 50 H Creatinine 2.26 H 2.31 H Est GFR ( Amer) 38 L 37 L Est GFR (Non-Af Amer) 31 L 30 L Glucose 76 84 Calcium 8.9 9.1 Phosphorus 5.2 H Magnesium 2.9 H Ammonia 27.2 Impressions: Abdomen Ultrasound 01/17/19 00:00 IMPRESSION: Ascites. Patient appears to have just had paracentesis 01/07/2019 and is reportedly scheduled for paracentesis next week. Paracentesis Ultrasound 01/17/19 07:31 IMPRESSION: SUCCESSFUL ULTRASOUND GUIDED PARACENTESIS. Assessment and Plan - Diagnosis (1) Hyponatremia Is this a current diagnosis for this admission?: Yes Plan: Improving. Hypervolemic hyponatremia, most likely due volume overload was due to caused by underlying cirrhosis. 01/17/2019: Sodium 122.2 up from 120.4 admission, K 5.0 down from 5.7, creatinine 2.31 up from 2.28 Urine sodium<5%, FeNa 0.7% Patient has worsening renal function, signs of volume overload (positive crackles on the right lower lung). To avoid worsening of volume overload will initially start on fluid restriction, strict in and out, hepatic diet. BMP every 6 hours. If worsening or not corrected will start on 3% sodium goal of correcting sodium about 8 mEq in 24 hours. Admit to IMCU. Monitor for seizures. (2) Ascites Qualifiers: Ascites type: due to alcoholic hepatitis Qualified Code(s): K70.11 - Alcoholic hepatitis with ascites Is this a current diagnosis for this admission?: Yes Plan: Much improved. Status post paracentesis by radiology. Appreciate their help. 6 L removed. Continue volume restriction, hepatic diet. (3) Acute kidney injury superimposed on chronic kidney disease Is this a current diagnosis for this admission?: No Plan: Stable. Likely due to decreased effective arterial volume due to worsening c irrhosis. 01/17/2019: Sodium 122.2 up from 120.4 admission, K 5.0 down from 5.7, creatinine 2.31 up from 2.28 Monitor volume status, strict in and out, renal diet. If does not improve will consult nephrology. (4) Hepatic cirrhosis Qualifiers: Hepatic cirrhosis type: alcoholic cirrhosis Is this a current diagnosis for this admission?: No Plan: Followed by Dr. Hernadez as outpatient. Monitor for bleeding and volume status. Platelets within normal limits. Outpatient GI follow-up. Having about 3 bowel movements a day and was told by his hot air furnace installer and repairer that he does not need to lactulose at this point. (5) Hyperkalemia Is this a current diagnosis for this admission?: Yes Plan: Back to normal range. Likely due to worsening renal function. No T wave changes on initial EKG. Hold Aldactone. If persistently high he could be started either on Kayexalate or Veltassa. Renal diet. (6) Hypotension Qualifiers: Hypotension type: other hypotension type Qualified Code(s): I95.89 - Other hypotension Is this a current diagnosis for this admission?: Yes Plan: Asymptomatic. MAP 6882 Due to underlying cirrhosis and reduced effective blood volume due to underlying ascetics. 01/17/2019: SBP 11762, T-max 97.9, HR 767111, RR 1622, SPO2 100% RA. Monitor vitals. Patient could be started on my department if MAP drops to < 60 or symptomatic.
[2019-01-17 17:50] LABS: ANION GAP 14 (5-19); BLOOD UREA NITROGEN 47 mg/dL (7-20); CALCIUM 8.7 mg/dL (8.4-10.2); CARBON DIOXIDE 20 mmol/L (22-30); CHLORIDE 89 mmol/L (98-107); GLUCOSE 123 mg/dL (75-110); POTASSIUM 4.7 mmol/L (3.6-5.0); SODIUM 123.4 mmol/L (137-145)
[2019-01-17 18:55] LABS: FLUID APPEARANCE CLOUDY; FLUID COLOR STRAW; FLUID SOURCE ABDOMEN; FLUID TYPE PERITONEAL; FLUID VISCOSITY LIQUID
--- NOTE | 2019-01-21 16:30 | Left Against Medical Advice ---
Against Medical Advice Admission Date/Time: 01/16/19 17:11 Primary Care Provider: AJ RAMIREZ Date of Patient Emigration: 01/17/19 - Diagnosis: (1) Hyponatremia Is this a current diagnosis for this admission?: Yes (2) Ascites Is this a current diagnosis for this admission?: Yes (3) Acute kidney injury superimposed on chronic kidney disease Is this a current diagnosis for this admission?: No (4) Hepatic cirrhosis Is this a current diagnosis for this admission?: No (5) Hyperkalemia Is this a current diagnosis for this admission?: Yes (6) Hypotension Is this a current diagnosis for this admission?: Yes - Summary: Summary: Please see Admission and Progress Notes as well. ROSALIE REN is a 48 M, who LEFT AGAINST MEDICAL ADVICE. The Patient was admitted on 01/16/19 17:11. ROSALIE REN is a 48 year old male past medical history of alcoholic cirrhosis, CKD, who was sent to ED by his machine sand mixer Dr. Hernadez from [facility] for evaluation of hyponatremia. Patient does state that he had a routine labs yesterday and today was called to go to ED because of his hyponatremia. He noticed that his abdominal girth increasing, so he cut down on his fluid intake. He takes about 64 ounces of fluids in 24 hours, along with low-sodium diet. He has also noticed that his urine output has decreased. Started on Lasix on 08/2019 which was DC'd recently had a paracentesis here at [place] last Saturday. He denies any fever, chills, shortness of breath, chest pain, nausea, vomiting, diarrhea, constipation. 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 He diagnosed with liver cirrhosis. Followed by Dr. Hernadez machine sand mixer as outpatient. SBP 104/65, temperature 97.7, pulse 105, respirations 16, SPO2 100% on room air. CBC within normal limits. Na 120.4, potassium 5.0, bicarb 21, creatinine 2.18 up from baseline of 1.66. Albumin 3.1. 1) Hyponatremia Was improving however patient left AMA. Patient was extensively counseled the risk of untreated hyponatremia, seems to be alert oriented x4. He understands the consequences of untreated hyponatremia Hypervolemic hyponatremia, most likely due volume overload was due to caused by underlying cirrhosis. 01/17/2019: Sodium 122.2 up from 120.4 admission, K 5.0 down from 5.7, creatinine 2.31 up from 2.28 Urine sodium<5%, FeNa 0.7% Patient has worsening renal function, signs of volume overload (positive crackles on the right lower lung). To avoid worsening of volume overload will initially start on fluid restriction, strict in and out, hepatic diet. BMP every 6 hours. If worsening or not corrected will start on 3% sodium goal of correcting sodium about 8 mEq in 24 hours. Admit to IMCU. Monitor for seizures. (2) Ascites Much improved. Status post paracentesis by radiology. Appreciate their help. 6 L removed. Continue volume restriction, hepatic diet. (3) Acute kidney injury superimposed on chronic kidney disease Stable. Likely due to decreased effective arterial volume due to worsening cirrhosis. 01/17/2019: Sodium 122.2 up from 120.4 admission, K 5.0 down from 5.7, creatinine 2.31 up from 2.28 Monitor volume status, strict in and out, renal diet. If does not improve will consult nephrology. (4) Hepatic cirrhosis Followed by Dr. Hernadez as outpatient. Monitor for bleeding and volume status. Platelets within normal limits. Outpatient GI follow-up. Having about 3 bowel movements a day and was told by his machine sand mixer that he does not need to lactulose at this point. (5) Hyperkalemia Back to normal range. Likely due to worsening renal function. No T wave changes on initial EKG. Hold Aldactone. If persistently high he could be started either on Kayexalate or Veltassa. Renal diet. (6) Hypotension Asymptomatic. MAP 6882 Due to underlying cirrhosis and reduced effective blood volume due to underlying ascetics. 01/17/2019: SBP 84713, T-max 97.9, HR 773370, RR 1622, SPO2 100% RA. Monitor vitals. Patient could be started on my department if MAP drops to < 60 or symptomatic.
== END 2019-01-17 18:25 | disposition left against medical advice (07) | DRG 641 ==
LOC: ER 13:06 → EH 17:11 → 3W 21:50
PROVIDERS: ADMIT Internal Medicine; ATTEND Internal Medicine
PROC: 0W9G30Z Drainage of Peritoneal Cavity with Drainage Device, Percutaneous Approach (ICD-10-PCS; principal; 2019-01-17)
DX: E87.1 Hypo-osmolality and hyponatremia (principal); N17.9 Acute kidney failure, unspecified; K70.31 Alcoholic cirrhosis of liver with ascites; E87.5 Hyperkalemia; N18.9 Chronic kidney disease, unspecified; F10.10 Alcohol abuse, uncomplicated; I95.89 Other hypotension
CPT/HCPCS: 36415; 49083; 76705; 80048; 80053; 82140; 82570; 83690; 83735; 84100; 84300; 85025; 85610; 85730; 87070; 87075; 87205; 89050; 99284; J1644; J3490; P9047

== ENCOUNTER 2019-01-22 11:14 | Day surgery (SDC) | payer SELFPAY ==
[2019-01-22 11:59] LABS: HEMATOCRIT 41.1 % (37.9-51.0); HEMOGLOBIN 14.2 g/dL (13.5-17.0); MEAN CORPUSCULAR HEMOGLOBIN 29.4 pg (27.0-33.4); MEAN CORPUSCULAR HGB CONC 34.7 g/dL (32.0-36.0); MEAN CORPUSCULAR VOLUME 85 fl (80-97); PLATELET COUNT 274 10^3/uL (150-450); RED BLOOD COUNT 4.84 10^6/uL (4.35-5.55); RED CELL DISTRIBUTION WIDTH 14.6 % (11.5-14.0)
[2019-01-22 12:17] LABS: BLOOD UREA NITROGEN 76 mg/dL (7-20)
[2019-01-22 12:44] LABS: PROTHROMBIN TIME 14.7 SEC (11.4-15.4)
[2019-01-22 12:45] LABS: PARTIAL THROMBOPLASTIN TIME 31.2 SEC (23.5-35.8)
[2019-01-22] MEDS ORDERED: ALBUMIN HUMAN 50 GM/200 ML RTUINJ IV PRN (14:50)
--- NOTE | 2019-01-22 15:20 | RADIOLOGY REPORT (SQ) ---
EXAM DESCRIPTION: U/S ABD PARACENTESIS COMPLETED DATE/TIME: 01/22/2019 2:46 pm REASON FOR STUDY: ASCITES K70.31 ALCOHOLIC CIRRHOSIS OF LIVER WITH ASCITES COMPARISON: None. LIMITATIONS: None. PROCEDURE: Procedure, risks, benefit, and alternative explained to patient who then gave written con sent. The left lower abdominal wall marked using ultrasound guidance. A time-out was called for cor rect marking verification. Abdomen prepped and draped using sterile technique. Local anesthesia achi eved using 3.0 ml of 1% lidocaine injection. A 6fr [id number] set was introduced into the perit buckner cavity. Fluid was drained. The catheter was removed and entry site was covered with sterile b andage. No immediate complications noted. Images acquired during the procedure were stored on PACS. FINDINGS: ENTRY SITE: Left lower quadrant FLUID VOLUME: 6600 cc FLUID ANALYSIS: Straw OTHER: Fluid sent to the lab for testing. IMPRESSION: SUCCESSFUL ULTRASOUND GUIDED PARACENTESIS. COMMENT: Patient medication list reviewed:Yes- Quality ID# [id number]:Eligible professional attests to docu menting in the medical record they obtained, updated, or reviewed the patient's current medications. TECHNICAL DOCUMENTATION: JOB ID: [id number] [employer]- All Rights Reserved Reading location - IP/workstation name: [email or web address]
[2019-01-22 15:36] LABS: FLUID APPEARANCE TURBID; FLUID COLOR STRAW; FLUID SOURCE ABDOMEN; FLUID TYPE PERITONEAL
[2019-01-22 15:38] LABS: FLUID VISCOSITY SLIGHTLY VISCOUS
[2019-01-22 16:27] VITALS: BP 105/55
== END 2019-01-22 16:50 | disposition home or self-care (01) ==
LOC: RAD 11:14
PROVIDERS: ATTEND Internal Medicine Gastroenterology
DX: K70.31 Alcoholic cirrhosis of liver with ascites (principal)
CPT/HCPCS: 36415; 84520; 82565; 85027; 85610; 85730; 89050; 49083; P9047

== ENCOUNTER 2019-01-23 12:35 | Observation (INO) | payer SELFPAY ==
[2019-01-23] MEDS ORDERED: NORMAL SALINE 1000 ML 1,000 ML IV ONE (12:59)
--- NOTE | 2019-01-23 13:02 | ER Document Report ---
ED Medical Screen (RME) - General Chief Complaint: Abnormal Lab Results Stated Complaint: FLANK PAIN Time Seen by Provider: 01/23/19 12:57 Primary Care Provider: MIGUEL SALDANA PA [Primary Care Provider] - Follow up as needed Mode of Arrival: Ambulatory Information source: Patient Notes: 48-year-old male presented to ED for decreasing kidney functions. He states Dr. Hernadez from [facility] called him and states that his kidney functioning was decreasing. He states he was also recently seen for paracentesis on Saturday and again yesterday for ascites. He also has renal insufficiency and low sodium. He is here today for the decreasing kidney function when I examined him his blood pressure was 82/50. I have greeted and performed a rapid initial assessment of this patient. A comprehensive ED assessment and evaluation of the patient, analysis of test results and completion of medical decision making process will be conducted by an additional ED providers. Dictation of this chart was performed using voice recognition software; therefore, there may be some unintended grammatical errors. TRAVEL OUTSIDE OF THE [place] IN LAST 30 DAYS: No - Related Data Allergies/Adverse Reactions: promethazine HCl [From Phenergan] Allergy (Intermediate, Verified 01/23/19 12:37) dystonic Past Medical History - Social History Frequency of alcohol use: Former ETOH. Clean 180+ days Drug Abuse: None Family history: Reviewed & Not Pertinent - Past Medical History Cardiac Medical History: Denies: Hx Coronary Artery Disease, Hx Heart Attack, Hx Hypertension Pulmonary Medical History: Denies: Hx Asthma, Hx Bronchitis, Hx COPD, Hx Pneumonia Neurological Medical History: Denies: Hx Cerebrovascular Accident, Hx Seizures Renal/ Medical History: Reports: Hx End Stage Renal Disease. Denies: Hx Peritoneal Dialysis GI Medical History: Reports: Hx Cirrhosis - Alcohol related Musculoskeltal Medical History: Denies Hx Arthritis Psychiatric Medical History: Denies: Hx Depression - Immunizations Hx Diphtheria, Pertussis, Tetanus Vaccination: No History of Influenza Vaccine for 06/2017 - 11/2017 Season: No Physical Exam - Vital signs Vitals: Temp Pulse Resp BP Pulse Ox 97.5 F 107 H 16 91/41 L 100 01/23/19 12:39 01/23/19 12:39 01/23/19 12:39 01/23/19 12:39 01/23/19 12:39 Course - Vital Signs Vital signs: Temp Pulse Resp BP Pulse Ox 97.5 F 107 H 16 82/50 L 100 01/23/19 12:39 01/23/19 12:39 01/23/19 12:39 01/23/19 12:56 01/23/19 12:39 Doctor's Discharge - Discharge Referrals: MIGUEL SALDANA PA [Primary Care Provider] - Follow up as needed
[2019-01-23 13:38] LABS: ABSOLUTE EOSINOPHILS # (AUTO) 0.1 10^3/uL (0.0-0.6); ABSOLUTE LYMPHOCYTES (AUTO) 0.9 10^3/uL (0.5-4.7); ABSOLUTE NEUT (AUTO) 6.4 10^3/uL (1.7-8.2); BASOPHILS % (AUTO) 0.5 % (0-2); EOSINOPHILS % (AUTO) 0.8 % (0-6); HEMATOCRIT 39.4 % (37.9-51.0); HEMOGLOBIN 13.4 g/dL (13.5-17.0); LYMPHOCYTES % (AUTO) 10.3 % (13-45); MEAN CORPUSCULAR HEMOGLOBIN 29.3 pg (27.0-33.4); MEAN CORPUSCULAR HGB CONC 33.9 g/dL (32.0-36.0); MEAN CORPUSCULAR VOLUME 86 fl (80-97); MONOCYTES % (AUTO) 11.6 % (3-13); PLATELET COUNT 240 10^3/uL (150-450); RED BLOOD COUNT 4.57 10^6/uL (4.35-5.55); RED CELL DISTRIBUTION WIDTH 14.6 % (11.5-14.0); SEGMENTED NEUTROPHILS % (AUTO) 76.8 % (42-78); TOTAL CELLS COUNTED % (AUTO) 100 %; WHITE BLOOD COUNT 8.4 10^3/uL (4.0-10.5)
[2019-01-23 14:13] LABS: ALANINE AMINOTRANSFERASE 31 U/L (21-72); ALKALINE PHOSPHATASE 201 U/L (38-126); ANION GAP 12 (5-19); ASPARTATE AMINO TRANSFERASE 68 U/L (17-59); BILIRUBIN,DIRECT 1.2 mg/dL (0.0-0.4); BILIRUBIN,TOTAL 2.6 mg/dL (0.2-1.3); BLOOD UREA NITROGEN 68 mg/dL (7-20); CALCIUM 8.7 mg/dL (8.4-10.2); CARBON DIOXIDE 19 mmol/L (22-30); CHLORIDE 93 mmol/L (98-107); GLUCOSE 150 mg/dL (75-110); LIPASE 194.9 U/L (23-300); POTASSIUM 5.2 mmol/L (3.6-5.0); SODIUM 123.6 mmol/L (137-145); TOTAL PROTEIN 5.2 g/dL (6.3-8.2)
--- NOTE | 2019-01-23 14:51 | ER Document Report ---
ED General - General Chief Complaint: Abnormal Lab Results Stated Complaint: FLANK PAIN Time Seen by Provider: 01/23/19 12:57 Primary Care Provider: MIGUEL SALDANA PA [Primary Care Provider] - Follow up as needed Mode of Arrival: Ambulatory Notes: Patient is a 48-year-old male with alcoholic cirrhosis of the liver and chronic hyponatremia presenting to the emergency department after having abnormal labs done yesterday during his paracentesis. Patient reports that he is feeling fine, has no acute complaints, states that his gastroenterology office called him today with critical labs. He states they were concerned about his creatinine level. Patient has no acute complaints today, he is alert, oriented and answering all questions difficulty. He denies any nausea, vomiting, diarrhea or fevers. TRAVEL OUTSIDE OF THE [place] IN LAST 30 DAYS: No - Related Data Allergies/Adverse Reactions: promethazine HCl [From Phenergan] Allergy (Intermediate, Verified 01/23/19 12:37) dystonic Past Medical History - General Information source: Patient - Social History Smoking Status: Never Smoker Frequency of alcohol use: Former ETOH. Clean 180+ days Drug Abuse: None Family History: Reviewed & Not Pertinent, Hypertension Patient has suicidal ideation: No Patient has homicidal ideation: No - Past Medical History Cardiac Medical History: Denies: Hx Coronary Artery Disease, Hx Heart Attack, Hx Hypertension Pulmonary Medical History: Denies: Hx Asthma, Hx Bronchitis, Hx COPD, Hx Pneumonia Neurological Medical History: Denies: Hx Cerebrovascular Accident, Hx Seizures Renal/ Medical History: Reports: Hx End Stage Renal Disease. Denies: Hx Peritoneal Dialysis GI Medical History: Reports: Hx Cirrhosis - Alcohol related Musculoskeletal Medical History: Denies Hx Arthritis Psychiatric Medical History: Denies: Hx Depression - Immunizations Hx Diphtheria, Pertussis, Tetanus Vaccination: No Review of Systems - Review of Systems Constitutional: No symptoms reported EENT: No symptoms reported Cardiovascular: No symptoms reported Respiratory: No symptoms reported Gastrointestinal: No symptoms reported Genitourinary: No symptoms reported Male Genitourinary: No symptoms reported Musculoskeletal: No symptoms reported Skin: No symptoms reported Hematologic/Lymphatic: No symptoms reported Neurological/Psychological: No symptoms reported Physical Exam - Vital signs Vitals: Temp Pulse Resp BP Pulse Ox 97.5 F 107 H 16 91/41 L 100 01/23/19 12:39 01/23/19 12:39 01/23/19 12:39 01/23/19 12:39 01/23/19 12:39 - Notes Notes: PHYSICAL EXAMINATION: GENERAL: Adult male in no acute distress. HEAD: Atraumatic, normocephalic. EYES: Pupils equal round and reactive to light, extraocular movements intact, sclera anicteric, conjunctiva are normal. ENT: Nares patent, oropharynx clear without exudates. Moist mucous membranes. NECK: Normal range of motion, supple without lymphadenopathy LUNGS: Breath sounds clear to auscultation bilaterally and equal. No wheezes rales or rhonchi. HEART: Regular rate and rhythm without murmurs ABDOMEN: Soft, nontender, nondistended abdomen. No guarding, no rebound. No masses appreciated. Musculoskeletal: Normal range of motion, no pitting or edema. No cyanosis. NEUROLOGICAL: Cranial nerves grossly intact. Normal speech. Normal sensory, motor exams PSYCH: Normal mood, normal affect. SKIN: Warm, Dry, normal turgor, no rashes or lesions noted. Course - Re-evaluation Re-evalutation: 01/23/19 14:50 Call placed to on-call bone grinder, Dr. Lomax, awaiting phone call back. 01/23/19 15:[address] Alamo, she recommends starting patient on albumin. Will place orders and then contact hospitalist for admission. 01/23/19 15:19 Patient accepted for admission by BECK Ac, hospitalist. - Vital Signs Vital signs: Temp Pulse Resp BP Pulse Ox 97.5 F 107 H 15 107/59 L 100 01/23/19 12:39 01/23/19 12:39 01/23/19 14:45 01/23/19 14:45 01/23/19 14:45 - Laboratory Result Diagrams: 01/23/19 13:20 01/23/19 13:20 Laboratory results interpreted by me: 01/23/19 01/23/19 13:20 13:20 Hgb 13.4 L RDW 14.6 H Lymphocytes % 10.3 L Sodium 123.6 L Potassium 5.2 H Chloride 93 L Carbon Dioxide 19 L BUN 68 H Creatinine 2.92 H Est GFR ( Amer) 28 L Est GFR (Non-Af Amer) 23 L Glucose 150 H Total Bilirubin 2.6 H Direct Bilirubin 1.2 H AST 68 H Alkaline Phosphatase 201 H Total Protein 5.2 L Albumin 3.0 L Discharge - Discharge Clinical Impression: Acute kidney injury, Hyponatremia Condition: Stable Disposition: ADMITTED INPATIENT Admitting Provider: Cameron (Hospitalist) Unit Admitted: Telemetry Referrals: MIGUEL SALDANA PA [Primary Care Provider] - Follow up as needed
[2019-01-23] MEDS ORDERED: ALBUMIN HUMAN 5% INJ 25 GM/500 ML BOTTLE IV ONE ×2 (14:55→16:00)
[2019-01-23 15:44] LABS: APPEARANCE,URINE SLIGHTLY-CLOUDY; BILIRUBIN,URINE NEGATIVE (NEGATIVE); COLOR,URINE YELLOW; GLUCOSE, URINE NEGATIVE (NEGATIVE); KETONES,URINE NEGATIVE (NEGATIVE); LEUKOCYTE ESTERASE,URINE NEGATIVE (NEGATIVE); NITRITE,URINE NEGATIVE (NEGATIVE); PROTEIN,URINE NEGATIVE (NEGATIVE); URINE SPECIFIC GRAVITY 1.013; UROBILINOGEN,URINE NEGATIVE mg/dL (<2.0)
[2019-01-23] MEDS: ALBUMIN HUMAN 12.5 GM/50 ML RTUINJ IV SCH ×2 (15:49→17:17)
[2019-01-23] MEDS ORDERED: ACETAMINOPHEN 325 MG TABLET PO PRN (15:50)
--- NOTE | 2019-01-23 16:25 | EKG REPORT ---
SEVERITY:- ABNORMAL ECG - SINUS RHYTHM EARLY PRECORDIAL TRANSITION , R/O CONSIDER OLD TRUE POSTERIOR PR. : Confirmed by: Aleksandr Zhang MD 23-Jan-2019 16:25:16
--- NOTE | 2019-01-23 17:07 | PDOC H&P ---
History of Present Illness Admission Date/PCP: 01/23/19 15:34 AJ RAMIREZ Patient complains of: ABNORMAL LABS History of Present Illness: ROSALIE REN is a 48 year old male with a PMH of alcoholic liver cirrhosis. He was sent to the emergency department by his stem maker for abnormal labs. His creatinine was elevated to 3.0, and sodium was 123. It appears that the patient's creatinine has slowly been climbing since August 2018. Additionally, the patient was recently admitted last month to [facility] for hyponatremia but he left AMA within 24 hours. The patient states that he is completely asymptomatic. He denies nausea, vomiting, dizziness, weakness, dysuria. He states that he had a recent paracentesis, in which 6600ml ascites was removed from his abdomen. He received " 3 vials" of albumin IV postprocedure. Plan to admit the patient to the hospitalist service and consult nephrology. Past Medical History Past Medical History: ALCOHOLIC LIVER CIRRHOSIS. 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) Cardiac Medical History: Denies: Coronary Artery Disease, Myocardial Infarction, Hypertension Pulmonary Medical History: Denies: Asthma, Bronchitis, Chronic Obstructive Pulmonary Disease (COPD), Pneumonia Neurological Medical History: Denies: Seizures GI Medical History: Reports: Cirrhosis - Alcohol related Musculoskeltal Medical History: Denies: Arthritis Psychiatric Medical History: Reports: Alcohol Dependency Denies: Depression Hematology: Denies: Anemia Past Surgical History Past Surgical History: Reports: Other - GERM CELL TUMOR REMOVAL (ABDOMEN) Social History Information Source: Patient Lives with: Family Smoking Status: Never Smoker Frequency of Alcohol Use: None Last Alcohol Use: 08/23/18 Hx Recreational Drug Use: No Drugs: None Hx Prescription Drug Abuse: No Past Social History Note: PATIENT IS 187 DAYS SOBER. HE IS HOPING TO GET ON THE TRANSPLANT LIST - Advance Directive Resuscitation Status: Full Code Family History Family History: Hypertension Parental Family History Reviewed: Yes Children Family History Reviewed: Yes Sibling(s) Family History Reviewed.: Yes Medication/Allergy Home Medications: Pantoprazole Sodium [Protonix] 40 mg PO DAILY 09/12/18 Ciprofloxacin HCl [Cipro] 500 mg PO DAILY 01/07/19 Fluticasone Propionate [Flonase Nasal [place] 50 Mcg/[place] 16 gm] 2 spray NASL DAILY 01/16/19 Multivitamin [Tab-A-Al (Multiple Vitamin) Tablet] 1 tab PO DAILY 01/16/19 Loratadine 10 mg PO Q2D 01/23/19 Allergies/Adverse Reactions: promethazine HCl [From Phenergan] Allergy (Intermediate, Verified 01/23/19 12:37) dystonic Review of Systems All systems: reviewed and no additional remarkable complaints except as stated Constitutional: ABSENT: chills, fever(s), headache(s), weight gain, weight loss Eyes: ABSENT: visual disturbances Ears: ABSENT: hearing changes Cardiovascular: ABSENT: chest pain, dyspnea on exertion, edema, orthropnea, palpitations Respiratory: ABSENT: cough, hemoptysis Gastrointestinal: ABSENT: abdominal pain, constipation, diarrhea, hematemesis, hematochezia, nausea, vomiting Genitourinary: ABSENT: dysuria, hematuria Musculoskeletal: ABSENT: joint swelling Integumentary: ABSENT: rash, wounds Neurological: ABSENT: abnormal gait, abnormal speech, confusion, dizziness, focal weakness, syncope Psychiatric: ABSENT: anxiety, depression, homidical ideation, suicidal ideation Endocrine: ABSENT: cold intolerance, heat intolerance, polydipsia, polyuria Hematologic/Lymphatic: ABSENT: easy bleeding, easy bruising Physical Exam Vital Signs: Temp Pulse Resp BP Pulse Ox 97.5 F 107 H 15 107/59 L 100 01/23/19 12:39 01/23/19 12:39 01/23/19 14:45 01/23/19 14:45 01/23/19 14:45 Intake & Output 01/22/19 01/23/19 01/24/19 06:59 06:59 06:59 Intake Total 667 Balance 667 Weight 62.2 kg General appearance: PRESENT: thin Head exam: PRESENT: atraumatic Eye exam: PRESENT: scleral icterus Mouth exam: PRESENT: moist, tongue midline Neck exam: PRESENT: full ROM Respiratory exam: PRESENT: clear to auscultation keeley, symmetrical, unlabored Cardiovascular exam: PRESENT: RRR Pulses: PRESENT: normal radial pulses, +1 pedal pulses bilateral Vascular exam: PRESENT: pallor GI/Abdominal exam: PRESENT: distended, normal bowel sounds, soft. ABSENT: tenderness Rectal exam: PRESENT: deferred Extremities exam: PRESENT: full ROM, other - extremities are very thin; musle wasting Musculoskeletal exam: PRESENT: full ROM Neurological exam: PRESENT: alert, awake, oriented to person, oriented to place, oriented to time, oriented to situation Psychiatric exam: PRESENT: appropriate affect Skin exam: PRESENT: jaundice, pallor Results Laboratory Results: 01/23/19 13:20 01/23/19 13:20 01/23/19 01/23/19 01/23/19 13:20 13:20 15:25 WBC 8.4 RBC 4.57 Hgb 13.4 L Hct 39.4 MCV 86 MCH 29.3 MCHC 33.9 RDW 14.6 H Plt Count 240 Seg Neutrophils % 76.8 Lymphocytes % 10.3 L Monocytes % 11.6 Eosinophils % 0.8 Basophils % 0.5 Absolute Neutrophils 6.4 Absolute Lymphocytes 0.9 Absolute Monocytes 1.0 Absolute Eosinophils 0.1 Absolute Basophils 0.0 Sodium 123.6 L Potassium 5.2 H Chloride 93 L Carbon Dioxide 19 L Anion Gap 12 BUN 68 H Creatinine 2.92 H Est GFR ( Amer) 28 L Est GFR (Non-Af Amer) 23 L Glucose 150 H Calcium 8.7 Total Bilirubin 2.6 H AST 68 H ALT 31 Alkaline Phosphatase 201 H Total Protein 5.2 L Albumin 3.0 L Lipase 194.9 Urine Color YELLOW Urine Appearance SLIGHTLY-CLOUDY Urine pH 5.0 Ur Specific [place] 1.013 Urine Protein NEGATIVE Urine Glucose (UA) NEGATIVE Urine Ketones NEGATIVE Urine Blood NEGATIVE Urine Nitrite NEGATIVE Ur Leukocyte Esterase NEGATIVE Urine WBC (Auto) 5 Urine RBC (Auto) 0 01/23/19 13:20 CK-MB (CK-2) 2.27 Status: Imported from PACS Assessment and Plan - Diagnosis (1) KAREN (acute kidney injury) Is this a current diagnosis for this admission?: Yes Plan: Worsening renal function, creatinine up to 2.9 today, has steadily been climbing since Patient states he is able to make urine without difficulty Possible hepatorenal syndome? No plans for IVF at this time Will administer 25G albumin Will consult nephrology, Dr. Lomax to see tonight (2) Hyponatremia Is this a current diagnosis for this admission?: Yes Plan: Euvolemic hyponatremia Likely secondary to liver disease Worsening renal function, creatinine up to 2.9 today, has steadily been climbing since Free water restriction - ok to drink water or juice but no free water Strict I&O BMP in AM (3) Ascites Qualifiers: Ascites type: due to alcoholic cirrhosis Qualified Code(s): K70.31 - Alcoholic cirrhosis of liver with ascites Is this a current diagnosis for this admission?: Yes Plan: Paracentesis done yesterday, drained 6600mL Patient reports he was given albumin IV at the time Has undergone 3 paracentesis this month (4) Hepatic cirrhosis Qualifiers: Hepatic cirrhosis type: alcoholic cirrhosis Is this a current diagnosis for this admission?: Yes Plan: [facility] alcoholic liver cirrhosis Patient attempting to get on transplant list 187 days sober Currently on
[2019-01-23] MEDS ORDERED: FUROSEMIDE 40 MG TABLET PO SCH ×2 (18:45→20:00)
--- NOTE | 2019-01-23 19:39 | PDOC CONSULTATION ---
Consultation Consult Date: 01/23/19 Provider Consulted: CONNIE ONEAL Consult reason:: I was asked to see this patient due to worsening kidney function and electrolyte abnormalities. History of Present Illness Admission Date/PCP: 01/23/19 15:34 AJ RAMIREZ History of Present Illness: ROSALIE REN is a 48 year old male with known history of alcohol liver disease cirrhosis and chronic kidney disease who was sent to the emergency room by his piano machine operator, Dr. Wilkerson because of elevated creatinine. He came in with a BUN of 68, creatinine of 2.92 and estimated GFR of 23. On January 16 he had a BUN of 47, creatinine of 2.18 and EGFR of 33. Review of records revealed that in October 03, 2018 he had a BUN of 22, creatinine of 1.49 and EGFR 54. Patient also presented with low sodium of 120.6 borderline elevated potassium of 5.2 and albumin of 3.0. Aside from this abnormal labs the patient is actually feeling fine. He follows up with Dr. Hernadez and he underwent paracentesis yesterday obtaining about 6600 mL of peritoneal fluid. He said they gave him about 4 bottles of albumin after the paracentesis yesterday. About a week ago on January 16 he was also admitted here in the hospital and another paracentesis was done obtaining about 5700 mL peritoneal fluid. He did sign out AMA on Saturday. On January 07 he had another paracentesis so this month he had at least 3 paracentesis. Patient was previously taking furosemide 80 mg once a day and spironolactone 200 mg once a day which was apparently discontinued about couple weeks ago by his piano machine operator. He noted that since then he has not been making too much urine. Prior to this month he does not really require frequent paracentesis. He is also being followed by a city magistrate at [place]. According to him there was no mention about liver transplant. He relates that he usually drinks about 64 ounces of water a day but since last weekend he was instructed to limited to 33 ounces daily. Patient denies any nausea, vomiting nor abdominal pain. He denies any fever. He does not have any leg swelling. He said he is eating good. He was previously jaundice and icteric but that has improved. He had a quit drinking alcohol 187 days ago. 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 GI Medical History: Reports: Cirrhosis - Alcohol related Psychiatric Medical History: Reports: Alcohol Dependency Past Surgical History Past Surgical History: Reports: None, Other - GERM CELL TUMOR REMOVAL (ABDOMEN) Social History Information Source: Patient, [facility] Records Lives with: Parents Smoking Status: Never Smoker Frequency of Alcohol Use: None Hx Recreational Drug Use: No Drugs: None Hx Prescription Drug Abuse: No - Advance Directive Resuscitation Status: Full Code Family History Family History: DM - Maternal and paternal side, Hypertension - Maternal and paternal side, Malignancy - Breast cancer in his sister, Other - Alcohol liver disease in his ankle Parental Family History Reviewed: Yes Children Family History Reviewed: NA Sibling(s) Family History Reviewed.: Yes Medication/Allergy Home Medications: Pantoprazole Sodium [Protonix] 40 mg PO DAILY 09/12/18 Ciprofloxacin HCl [Cipro] 500 mg PO DAILY 01/07/19 Fluticasone Propionate [Flonase Nasal [place] 50 Mcg/[place] 16 gm] 2 spray NASL DAILY 01/16/19 Multivitamin [Tab-A-Al (Multiple Vitamin) Tablet] 1 tab PO DAILY 01/16/19 Loratadine 10 mg PO Q2D 01/23/19 Allergies/Adverse Reactions: promethazine HCl [From Phenergan] Allergy (Intermediate, Verified 01/23/19 12:37) dystonic Review of Systems All systems: reviewed and no additional remarkable complaints except as stated Review of Systems: Constitutional: ABSENT: chills, fatigue, fever(s), headache(s), weight gain, weight loss Eyes: ABSENT: visual disturbances Ears: ABSENT: hearing changes Cardiovascular: ABSENT: chest pain, dyspnea on exertion, edema, orthropnea, palpitations Respiratory: ABSENT: cough, dyspnea, hemoptysis Gastrointestinal: ABSENT: abdominal pain, constipation, diarrhea, hematemesis, hematochezia, nausea, vomiting Genitourinary: ABSENT: dysuria, hematuria Musculoskeletal: ABSENT: joint swelling Integumentary: ABSENT: rash, wounds Neurological: ABSENT: abnormal gait, abnormal speech, confusion, dizziness, focal weakness, numbness, syncope Psychiatric: ABSENT: anxiety, depression Endocrine: ABSENT: cold intolerance, heat intolerance, polydipsia, polyuria Hematologic/Lymphatic: ABSENT: easy bleeding, easy bruising, lymphadenopathy Physical Exam Vital Signs: Temp Pulse Resp BP Pulse Ox 98.2 F 102 H 15 82/48 L 100 01/23/19 18:20 01/23/19 18:20 01/23/19 18:20 01/23/19 18:20 01/23/19 18:20 Intake & Output 01/22/19 01/23/19 01/24/19 06:59 06:59 06:59 Intake Total 1007 Balance 1007 Weight 62.2 kg Exam: General appearance: No acute distress, cooperative, well-developed, well- nourished Head exam: PRESENT: atraumatic, normocephalic Eye exam: PRESENT: Conjunctiva [place], EOMI, PERRLA. ABSENT: conjunctival injection, scleral icterus Mouth exam: PRESENT: moist, neck supple, tongue midline Neck exam: PRESENT: full ROM. ABSENT: carotid bruit, JVD, lymphadenopathy, thyromegaly Respiratory exam: PRESENT: clear to auscultation bilaterally. ABSENT: rales, rhonchi, stridor, wheezes Cardiovascular exam: PRESENT: RRR, +S1, +S2. ABSENT: systolic murmur Pulses: PRESENT: normal radial pulses, normal dorsalis pedis pulses GI/Abdominal exam: PRESENT: normal bowel sounds, soft. Mild ascites with fluid wave ABSENT: guarding, mass, tenderness Rectal exam: Deferred Extremities exam: PRESENT: full ROM. ABSENT: calf tenderness, pedal edema Musculoskeletal: PRESENT: full ROM. ABSENT: deformity Neurological exam: PRESENT: alert, Awake, Oriented to person, Oriented to place, Oriented to time, reflexes normal, CN II-XII grossly intact. ABSENT: motor sensory deficit Psychiatric exam: PRESENT: appropriate affect, normal mood. ABSENT: homicidal ideation, suicidal ideation Skin exam: PRESENT: intact, dry, warm. ABSENT: rash Results Laboratory Results: 01/23/19 13:20 01/23/19 13:20 01/23/19 01/23/19 01/23/19 13:20 13:20 15:25 WBC 8.4 RBC 4.57 Hgb 13.4 L Hct 39.4 MCV 86 MCH 29.3 MCHC 33.9 RDW 14.6 H Plt Count 240 Seg Neutrophils % 76.8 Lymphocytes % 10.3 L Monocytes % 11.6 Eosinophils % 0.8 Basophils % 0.5 Absolute Neutrophils 6.4 Absolute Lymphocytes 0.9 Absolute Monocytes 1.0 Absolute Eosinophils 0.1 Absolute Basophils 0.0 Sodium 123.6 L Potassium 5.2 H Chloride 93 L Carbon Dioxide 19 L Anion Gap 12 BUN 68 H Creatinine 2.92 H Est GFR ( Amer) 28 L Est GFR (Non-Af Amer) 23 L Glucose 150 H Calcium 8.7 Total Bilirubin 2.6 H AST 68 H ALT 31 Alkaline Phosphatase 201 H Total Protein 5.2 L Albumin 3.0 L Lipase 194.9 Urine Color YELLOW Urine Appearance SLIGHTLY-CLOUDY Urine pH 5.0 Ur Specific [place] 1.013 Urine Protein NEGATIVE Urine Glucose (UA) NEGATIVE Urine Ketones NEGATIVE Urine Blood NEGATIVE Urine Nitrite NEGATIVE Ur Leukocyte Esterase NEGATIVE Urine WBC (Auto) 5 Urine RBC (Auto) 0 01/23/19 13:20 CK-MB (CK-2) 2.27 Assessment & Plan - Diagnosis (1) Acute kidney injury superimposed on chronic kidney disease Is this a current diagnosis for this admission?: Yes Plan: This most likely secondary to the prerenal cause due to recent paracentesis episode, twice within a week. Patient also has an underlying hepatorenal syndrome. I recommended couple of vials of albumin IV that was given in the emergency room. Patient was also relatively hypotensive compared to his previous blood pressures. I will give him a liter of normal saline overnight. Once rehydrated I think the patient also needs a low-dose diuretics with furosemide 40 mg once a day and a low-dose spironolactone of 25 mg once a day at least upon discharge. Monitor kidney function and electrolytes. The patient definitely does not need any renal replacement therapy. (2) Alcoholic cirrhosis of liver Is this a current diagnosis for this admission?: Yes (3) Hyponatremia Is this a current diagnosis for this admission?: Yes Plan: This is due to a chronic hypervolemic state in a patient with cirrhosis and ascites. Increase water intake can also make this worse. Advised patient to restrict plain water to 30 to 33 ounces daily but he may drink other electrolyte containing drinks after that. Will do water restriction while here in the hospital. (4) Metabolic acidosis Is this a current diagnosis for this admission?: Yes Plan: Mild due to KAREN. (5) Hyperkalemia Is this a current diagnosis for this admission?: Yes Plan: Mild. Low potassium diet. (6) Hypotension Qualifiers: Hypotension type: other hypotension type Qualified Code(s): I95.89 - Other hypotension Is this a current diagnosis for this admission?: Yes Plan: Likely due to large volume paracentesis. Patient's baseline blood pressure is relatively in the low 100s. (7) Anemia in chronic illness Is this a current diagnosis for this admission?: Yes (8) Ascites Qualifiers: Ascites type: due to alcoholic cirrhosis Qualified Code(s): K70.31 - Alcoholic cirrhosis of liver with ascites Is this a current diagnosis for this admission?: Yes Plan: Status post large-volume paracentesis of 6600 mL yesterday. - Notes Notes: Thank you very much for this consultation. Discussed with Connie Oneal NP. If the patient shows improvement yesterday I think he may be able to go home considering that he is clinically well. - Time Time Spent: 50 to 70 Minutes
[2019-01-23] MEDS ORDERED: NORMAL SALINE 1000 ML 500 ML IV ONE (20:00)
[2019-01-24] MEDS ORDERED: PANTOPRAZOLE SODIUM 40 MG TABLET.DR PO SCH (06:00)
[2019-01-24 06:38] LABS: HEMATOCRIT 33.7 % (37.9-51.0); HEMOGLOBIN 11.6 g/dL (13.5-17.0); MEAN CORPUSCULAR HEMOGLOBIN 29.3 pg (27.0-33.4); MEAN CORPUSCULAR HGB CONC 34.3 g/dL (32.0-36.0); MEAN CORPUSCULAR VOLUME 85 fl (80-97); PLATELET COUNT 206 10^3/uL (150-450); RED BLOOD COUNT 3.96 10^6/uL (4.35-5.55); RED CELL DISTRIBUTION WIDTH 14.7 % (11.5-14.0); WHITE BLOOD COUNT 7.7 10^3/uL (4.0-10.5)
[2019-01-24 07:01] LABS: ALANINE AMINOTRANSFERASE 33 U/L (21-72); ALBUMIN 2.6 g/dL (3.5-5.0); ALKALINE PHOSPHATASE 167 U/L (38-126); ANION GAP 11 (5-19); ASPARTATE AMINO TRANSFERASE 59 U/L (17-59); BILIRUBIN,TOTAL 2.2 mg/dL (0.2-1.3); BLOOD UREA NITROGEN 57 mg/dL (7-20); CALCIUM 8.3 mg/dL (8.4-10.2); CARBON DIOXIDE 20 mmol/L (22-30); CHLORIDE 94 mmol/L (98-107); CHOLESTEROL 77.99 mg/dL (0-200); GLUCOSE 105 mg/dL (75-110); PHOSPHORUS 4.5 mg/dL (2.5-4.5); POTASSIUM 5.1 mmol/L (3.6-5.0); SODIUM 125.1 mmol/L (137-145); TOTAL PROTEIN 4.4 g/dL (6.3-8.2); TRIGLYCERIDES 43 mg/dL (<150)
[2019-01-24 07:11] LABS: DIRECT LDL 57 mg/dL (<100)
[2019-01-24] MEDS ORDERED: FUROSEMIDE 40 MG TABLET PO SCH (10:00)
[2019-01-24] MEDS ORDERED: LACTULOSE SYRUP 20 GM/30 ML UDCUP PO SCH (10:00)
[2019-01-24] MEDS ORDERED: ENOXAPARIN SODIUM INJ 30 MG/0.3 ML DISP.SYRIN SUBCUT SCH (10:00)
[2019-01-24 15:07] VITALS: BP 100/47
--- NOTE | 2019-01-29 10:10 | PDOC DISCHARGE SUMMARY ---
General - Admit/Disc Date/PCP Admission Date/Primary Care Provider: 01/23/19 15:34 AJ RAMIREZ Discharge Date: 01/24/19 - Discharge Diagnosis (1) KAREN (acute kidney injury) Is this a current diagnosis for this admission?: Yes (2) Hyponatremia Is this a current diagnosis for this admission?: Yes (3) Ascites Is this a current diagnosis for this admission?: Yes (4) Hepatic cirrhosis Is this a current diagnosis for this admission?: Yes - Additional Information Resuscitation Status: Full Code Discharge Diet: As Tolerated Discharge Activity: Activity As Tolerated Prescriptions: Furosemide [Lasix 40 mg Tablet] 40 mg PO DAILY #30 tablet Spironolactone [Aldactone 25 mg Tablet] 25 mg PO DAILY #30 tablet Home Medications: Pantoprazole Sodium [Protonix] 40 mg PO DAILY 09/12/18 Ciprofloxacin HCl [Cipro] 500 mg PO DAILY 01/07/19 Fluticasone Propionate [Flonase Nasal [place] 50 Mcg/[place] 16 gm] 2 spray NASL DAILY 01/16/19 Multivitamin [Tab-A-Al (Multiple Vitamin) Tablet] 1 tab PO DAILY 01/16/19 Loratadine 10 mg PO Q2D 01/23/19 Furosemide [Lasix 40 mg Tablet] 40 mg PO DAILY #30 tablet 01/24/19 Spironolactone [Aldactone 25 mg Tablet] 25 mg PO DAILY #30 tablet 01/24/19 History of Present Illness History of Present Illness: ROSALIE REN is a 48 year old male with a PMH of alcoholic liver cirrhosis. He was sent to the emergency department by his sausage mixer for abnormal labs. His creatinine was elevated to 3.0, and sodium was 123. It appears that the patient's creatinine has slowly been climbing since August 2018. Additionally, the patient was recently admitted last month to [facility] for hyponatremia but he left AMA within 24 hours. The patient states that he is c ompletely asymptomatic. He denies nausea, vomiting, dizziness, weakness, dysuria. He states that he had a recent paracentesis, in which 6600ml ascites was removed from his abdomen. He received " 3 vials" of albumin IV postprocedure. Plan to admit the patient to the hospitalist service and consult nephrology. Hospital Course Hospital Course: ROSALIE REN is a 48 year old male with a PMH of alcoholic liver cirrhosis. He was sent to the emergency department by his sausage mixer, Dr. Hernadez, for abnormal labs. His creatinine was elevated to 3.0, and sodium was down to 123. The patient reported he recently underwent a paracentesis where 6600mL ascites was removed. When reviewing the patient's previous [facility] records, it appears his creatinine has been steadily climbing since . Dr. Lomax was consulted, and she feels that the patient's elevated creatinine is due in part to the recent high volume paracentesis as well as developing hepatorenal syndrome. He is not a candidate for dialysis. The patient was noted to be mildly hypotensive upon arrival to [facility] ED so he was given 1 L IVF and 25G albumin. The following day he was started on low dose diuretics - Lasix and spironolactone, which he was instructed to continue taking as an outpatient. The patients hyponatremia is likely due to hypervolemia in someone with liver failure and ascities. The patient reports he ONLY drinks water (64 oz per day), which is probably driving his sodium even more. He was instructed to reduce his water intake in half and supplement the remaining with sports drinks or juice. The goal of the patient's therapy is to gently diurese excess fluid to prevent the need for high volume paracentesis in the future, thereby reducing risk of further kidney damage. The patient was clinically asymptomatic. He was discharged home within 24 hours of admission. Physical Exam Vital Signs: Temp Pulse Resp BP Pulse Ox 98.1 F 113 H 14 82/50 L 100 01/24/19 14:40 01/24/19 14:40 01/24/19 14:40 01/24/19 14:40 01/24/19 14:40 General appearance: PRESENT: no acute distress, thin Head exam: PRESENT: atraumatic, normocephalic Eye exam: PRESENT: EOMI, PERRLA, scleral icterus Ear exam: PRESENT: normal external ear exam Mouth exam: PRESENT: moist, tongue midline Neck exam: ABSENT: carotid bruit, JVD, lymphadenopathy, thyromegaly Respiratory exam: PRESENT: clear to auscultation keeley, symmetrical, unlabored. A BSENT: rales, rhonchi, wheezes Cardiovascular exam: PRESENT: RRR. ABSENT: diastolic murmur, rubs, systolic murmur Pulses: PRESENT: normal radial pulses, +1 pedal pulses bilateral Vascular exam: PRESENT: pallor GI/Abdominal exam: PRESENT: normal bowel sounds, soft. ABSENT: distended, guarding, mass, organolmegaly, rebound, tenderness Rectal exam: PRESENT: deferred Extremities exam: PRESENT: full ROM. ABSENT: calf tenderness, clubbing, pedal edema Neurological exam: PRESENT: alert, awake, oriented to person, oriented to place, oriented to time, oriented to situation Psychiatric exam: PRESENT: appropriate affect, normal mood Skin exam: PRESENT: dry, intact, jaundice, warm. ABSENT: cyanosis, rash Results Laboratory Results: 01/24/19 06:30 01/24/19 06:30 01/23/19 01/24/19 13:20 06:30 CK-MB (CK-2) 2.27 NT-Pro-B Natriuret Pep 297 H Status: Imported from PACS Qualifiers - * PATIENT BEING DISCHARGED WITH ANY OF THE FOLLOWING DIAGNOSIS: No Acute Heart Failure Is this a Heart Failure Patient?: No
== END 2019-01-24 15:05 | disposition home or self-care (01) ==
LOC: ER 12:35 → INTOOBSV 15:34 → EH 15:34 → 4S 18:33
PROVIDERS: ADMIT Family Medicine; ATTEND Family Medicine
DX: N17.9 Acute kidney failure, unspecified (principal); N18.3 Chronic kidney disease, stage 3 (moderate); E87.1 Hypo-osmolality and hyponatremia; K70.31 Alcoholic cirrhosis of liver with ascites; I95.89 Other hypotension; K76.7 Hepatorenal syndrome; F10.21 Alcohol dependence, in remission; E87.2 Acidosis; D63.8 Anemia in other chronic diseases classified elsewhere; M62.58 Muscle wasting and atrophy, not elsewhere classified, other site; Z79.899 Other long term (current) drug therapy; Z92.21 Personal history of antineoplastic chemotherapy; Z86.03 Personal history of neoplasm of uncertain behavior; Z82.49 Family history of ischemic heart disease and other diseases of the circulatory system; Z81.1 Family history of alcohol abuse and dependence; Z83.79 Family history of other diseases of the digestive system; Z98.890 Other specified postprocedural states
CPT/HCPCS: 93005; 99284; 96360; 36415 ×2; 82553; 82140; 83690; 83735; 84100; 84300; 85025; 85027; 80053 ×2; 81001; 80061; 83880; 93010; G0378 ×3; P9047; J1650; J7030

== ENCOUNTER 2019-02-03 11:12 | Day surgery (SDC) | payer SELFPAY ==
[2019-02-03 12:27] LABS: HEMATOCRIT 38.5 % (37.9-51.0); HEMOGLOBIN 13.3 g/dL (13.5-17.0); MEAN CORPUSCULAR HEMOGLOBIN 29.3 pg (27.0-33.4); MEAN CORPUSCULAR HGB CONC 34.6 g/dL (32.0-36.0); MEAN CORPUSCULAR VOLUME 85 fl (80-97); PLATELET COUNT 212 10^3/uL (150-450); RED BLOOD COUNT 4.53 10^6/uL (4.35-5.55); WHITE BLOOD COUNT 8.8 10^3/uL (4.0-10.5)
[2019-02-03 12:34] LABS: INTERNATIONAL RATION (INR) 1.08; PROTHROMBIN TIME 14.6 SEC (11.4-15.4)
[2019-02-03 12:35] LABS: PARTIAL THROMBOPLASTIN TIME 31.3 SEC (23.5-35.8)
[2019-02-03 13:00] LABS: BLOOD UREA NITROGEN 73 mg/dL (7-20)
[2019-02-03] MEDS ORDERED: ALBUMIN HUMAN 75 GM/300 ML RTUINJ IV ONE (14:20)
--- NOTE | 2019-02-03 15:30 | RADIOLOGY REPORT (SQ) ---
EXAM DESCRIPTION: U/S ABD PARACENTESIS COMPLETED DATE/TIME: 02/03/2019 3:13 pm REASON FOR STUDY: ASCITES COMPARISON 01/22/2019 LIMITATIONS: None. PROCEDURE: After obtaining informed consent, the patient was brought to the ultrasound suite. The p rocedure was performed with the patient on a gurney. Ultrasound was used to identify a prominent poc ket of ascites in the left lower quadrant. An appropriate access site was selected. The patient was prepped and draped in usual sterile fashion. The access site was anesthetized with 6 mL 1% lidocai ne. A [id number]-O-[id number] needle was advanced into the fluid. After aspiration of fluid the needle, the catheter was advanced off the needle into the fluid. A total of 8,000 mL of cloudy straw-colored fl uid was removed. The patient tolerated the procedure well left the department in satisfactory conditi on. Specimens were sent to the lab for evaluation. Patient received IV albumin after the procedure IMPRESSION: Successful ultrasound-guided paracentesis COMMENT: Patient medication list reviewed: Yes- Quality ID# [id number]:Eligible professional attests to doc umenting in the medical record they obtained, updated, or reviewed the patient's current medications. TECHNICAL DOCUMENTATION: JOB ID: [id number] [employer]- All Rights Reserved Reading location - IP/workstation name: [email or web address]
[2019-02-03 16:08] LABS: FLUID SOURCE ASCITES; FLUID TYPE PERITONEAL
[2019-02-03 16:09] LABS: FLUID APPEARANCE TURBID; FLUID COLOR LIGHT YELLOW
[2019-02-03 16:10] LABS: FLUID VISCOSITY LIQUID
[2019-02-03 16:43] VITALS: BP 95/58
== END 2019-02-03 16:43 | disposition home or self-care (01) ==
LOC: RAD 11:12
PROVIDERS: ATTEND Internal Medicine Gastroenterology
DX: K70.31 Alcoholic cirrhosis of liver with ascites (principal); E87.1 Hypo-osmolality and hyponatremia
CPT/HCPCS: 36415; 84520; 82565; 85027; 85610; 85730; 89050; 49083; P9047

== ENCOUNTER 2019-02-17 07:27 | Day surgery (SDC) | payer OTHER ==
[2019-02-17 08:34] LABS: HEMATOCRIT 38.7 % (37.9-51.0); HEMOGLOBIN 13.4 g/dL (13.5-17.0); MEAN CORPUSCULAR HEMOGLOBIN 29.5 pg (27.0-33.4); MEAN CORPUSCULAR HGB CONC 34.6 g/dL (32.0-36.0); MEAN CORPUSCULAR VOLUME 85 fl (80-97); PLATELET COUNT 269 10^3/uL (150-450); RED BLOOD COUNT 4.54 10^6/uL (4.35-5.55); RED CELL DISTRIBUTION WIDTH 15.6 % (11.5-14.0)
[2019-02-17 09:44] LABS: INTERNATIONAL RATION (INR) 1.17; PROTHROMBIN TIME 15.5 SEC (11.4-15.4)
[2019-02-17 09:45] LABS: PARTIAL THROMBOPLASTIN TIME 34.9 SEC (23.5-35.8)
[2019-02-17 09:46] LABS: BLOOD UREA NITROGEN 76 mg/dL (7-20)
[2019-02-17] MEDS ORDERED: ALBUMIN HUMAN 12.5 GM/50 ML RTUINJ IV PRN (10:58)
[2019-02-17 12:02] LABS: FLUID TYPE PERITONEAL
[2019-02-17 12:04] LABS: FLUID APPEARANCE TURBID; FLUID COLOR YELLOW; FLUID SOURCE ASCITES; FLUID VISCOSITY LIQUID
[2019-02-17 13:04] VITALS: BP 96/58
--- NOTE | 2019-02-17 13:12 | RADIOLOGY REPORT (SQ) ---
EXAM DESCRIPTION: U/S ABD PARACENTESIS COMPLETED DATE/TIME: 02/17/2019 12:49 pm REASON FOR STUDY: ASCITES COMPARISON 02/03/2019, 01/22/2019, 01/17/2019 LIMITATIONS: None. PROCEDURE: After obtaining informed consent, the patient was brought to the ultrasound suite. The p rocedure was performed with the patient on a gurney. Ultrasound was used to identify a prominent poc ket of ascites in the right lower quadrant. An appropriate access site was selected. The patient wa s prepped and draped in usual sterile fashion. The access site was anesthetized with 6 mL 1% lidoca ine. A [id number]-[id number] needle was advanced into the fluid. After aspiration of fluid the needle, th e catheter was advanced off the needle into the fluid. A total of 6,850 mL of cloudy fluid was remov ed. The patient tolerated the procedure well left the department in satisfactory condition. Fluid was sent for testing. Patient received IV albumin postprocedure. IMPRESSION: Successful ultrasound-guided diagnostic and therapeutic paracentesis COMMENT: Patient medication list reviewed: Yes- Quality ID# [id number]:Eligible professional attests to doc umenting in the medical record they obtained, updated, or reviewed the patient's current medications. TECHNICAL DOCUMENTATION: JOB ID: [id number] [employer]- All Rights Reserved Reading location - IP/workstation name: [email or web address]
== END 2019-02-17 13:10 | disposition home or self-care (01) ==
LOC: RAD 07:27
PROVIDERS: ATTEND Internal Medicine Gastroenterology
DX: K70.31 Alcoholic cirrhosis of liver with ascites (principal)
CPT/HCPCS: 36415; 84520; 82565; 85027; 85610; 85730; 89050; 49083; P9047

== ENCOUNTER 2019-02-27 12:26 | Inpatient (IN) | payer OTHER ==
[2019-02-27 14:38] LABS: HEMATOCRIT 35.3 % (37.9-51.0); HEMOGLOBIN 12.5 g/dL (13.5-17.0); MEAN CORPUSCULAR HGB CONC 35.3 g/dL (32.0-36.0); MEAN CORPUSCULAR VOLUME 85 fl (80-97); PLATELET COUNT 303 10^3/uL (150-450); RED BLOOD COUNT 4.15 10^6/uL (4.35-5.55); RED CELL DISTRIBUTION WIDTH 15.2 % (11.5-14.0)
[2019-02-27 14:46] LABS: ANION GAP 13 (5-19); BLOOD UREA NITROGEN 100 mg/dL (7-20); CALCIUM 8.8 mg/dL (8.4-10.2); CARBON DIOXIDE 18 mmol/L (22-30); CHLORIDE 88 mmol/L (98-107); POTASSIUM 5.1 mmol/L (3.6-5.0)
[2019-02-27 14:51] LABS: GLUCOSE 62 mg/dL (75-110); SODIUM 118.5 mmol/L (137-145)
[2019-02-27 15:09] LABS: ABSOLUTE LYMPHOCYTES# (MANUAL) 0.6 10^3/uL (0.5-4.7); ABSOLUTE MONOCYTES # (MANUAL) 0.9 10^3/uL (0.1-1.4); BAND NEUTROPHILS % (MANUAL) 2 % (3-5); BASOPHILS % (MANUAL) 0 % (0-2); EOSINOPHILS % (MANUAL) 0 % (0-6); LYMPHOCYTES % (MANUAL) 5 % (13-45); MONOCYTES % (MANUAL) 8 % (3-13); SEGMENTED NEUTROPHILS % (MAN) 82 % (42-78); TOTAL CELLS COUNTED 100
[2019-02-27] MEDS ORDERED: NORMAL SALINE 1000 ML 1,000 ML IV ONE (15:10)
[2019-02-27 15:11] LABS: INTERNATIONAL RATION (INR) 1.15; PROTHROMBIN TIME 15.3 SEC (11.4-15.4)
[2019-02-27 15:12] LABS: PLATELET COMMENT ADEQUATE
[2019-02-27 15:13] LABS: ANISOCYTOSIS 1+; HYPOCHROMASIA 1+; POIKILOCYTOSIS SLIGHT; POLYCHROMASIA SLIGHT
[2019-02-27 15:14] LABS: METAMYELOCYTES % (MANUAL) 1 % (0); MYELOCYTES % (MANUAL) 1 % (0); PROMYELOCYTES % (MANUAL) 1 % (0)
--- NOTE | 2019-02-27 15:27 | ER Document Report ---
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 Redd [phone]) because of worsening hyponatremia. Patient states he feels good and has no complaints. He does feel that he is at his baseline functional status. He states that his blood pressure is normally low (systolic in the 90s). TRAVEL OUTSIDE OF THE [place] IN LAST 30 DAYS: No - HPI Onset: Just prior to arrival Onset/Duration: Sudden Quality of pain: No pain Severity: None Pain Level: Denies Associated symptoms: denies: Chest pain, Fever, Shortness of breath Exacerbated by: Denies Relieved by: Denies Similar symptoms previously: Yes Recently seen / treated by doctor: Yes - Related Data Allergies/Adverse Reactions: promethazine HCl [From Phenergan] Allergy (Intermediate, Verified 02/17/19 07:54) dystonic Past Medical History - General Information source: Patient - Social History Smoking Status: Never Smoker Cigarette use (# per day): No Chew tobacco use (# tins/day): No Frequency of alcohol use: None Drug Abuse: None Lives with: Family Family History: Reviewed & Not Pertinent, Hypertension Patient has suicidal ideation: No Patient has homicidal ideation: No - Past Medical History Cardiac Medical History: Denies: Hx Coronary Artery Disease, Hx Heart Attack, Hx Hypertension Pulmonary Medical History: Denies: Hx Asthma, Hx Bronchitis, Hx COPD, Hx Pneumonia Neurological Medical History: Denies: Hx Cerebrovascular Accident, Hx Seizures Renal/ Medical History: Reports: Hx End Stage Renal Disease. Denies: Hx Perit buckner Dialysis GI Medical History: Reports: Hx Cirrhosis - Alcohol related Musculoskeletal Medical History: Denies Hx Arthritis Psychiatric Medical History: Denies: Hx Depression Past Surgical History: Reports: Other - GERM CELL TUMOR REMOVAL (ABDOMEN) - Immunizations Hx Diphtheria, Pertussis, Tetanus Vaccination: No Review of Systems - Review of Systems Constitutional: denies: Chills, Fever EENT: No symptoms reported Cardiovascular: No symptoms reported Respiratory: No symptoms reported Gastrointestinal: See HPI Genitourinary: No symptoms reported Male Genitourinary: No symptoms reported Musculoskeletal: No symptoms reported Skin: No symptoms reported Hematologic/Lymphatic: No symptoms reported Neurological/Psychological: No symptoms reported Physical Exam - Vital signs Vitals: Temp Pulse Resp BP Pulse Ox 97.6 F 106 H 16 85/52 L 100 02/27/19 12:30 02/27/19 12:30 02/27/19 12:30 02/27/19 12:30 02/27/19 12:30 Notes: Physical exam: GENERAL: 48-year-old man, alert and oriented x3, chronic ill-appearing but no a cute distress. HEAD: Atraumatic, normocephalic. EYES: Pupils equal round and reactive to light, extraocular movements intact, sclera anicteric, conjunctiva are normal. ENT: TMs normal, nares patent, oropharynx clear without exudates. Moist mucous membranes. NECK: Normal range of motion, supple without obvious mass or JVD. LUNGS: Breath sounds clear to auscultation bilaterally and equal. No wheezes rales or rhonchi. HEART: Regular rate and rhythm without murmurs, rubs or gallops. ABDOMEN: Soft, normoactive bowel sounds. Ascites is present. No tenderness to palpation. No guarding, no rebound. No masses appreciated. EXTREMITIES: Normal range of motion, no pitting or edema. No clubbing or cyanosis. NEUROLOGICAL: Cranial nerves II through XII grossly intact. Normal speech, movi ng all extremities. PSYCH: Normal mood, normal affect. SKIN: Warm, Dry, normal turgor, no rashes or lesions noted. Course - Re-evaluation Re-evalutation: 02/27/19 15:[address] Lomax. Patient may be volume depleted. Clearly, we want to avoid giving too much saline. Given the bump in BUN and creatinine, the plan would be very cautious IV saline with serial electrolytes and renal function. - Vital Signs Vital signs: Temp Pulse Resp BP Pulse Ox 97.6 F 106 H 31 H 80/48 L 98 02/27/19 12:30 02/27/19 12:30 02/27/19 13:32 02/27/19 13:32 02/27/19 13:32 - Laboratory Result Diagrams: 02/27/19 14:00 02/27/19 14:00 Laboratory results interpreted by me: 02/27/19 02/27/19 14:00 14:00 WBC 11.0 H RBC 4.15 L Hgb 12.5 L Hct 35.3 L RDW 15.2 H Seg Neuts % (Manual) 82 H Band Neutrophils % 2 L Lymphocytes % (Manual) 5 L Metamyelocytes % 1 H Myelocytes % 1 H Promyelocytes % 1 H Abs Neuts (Manual) 9.6 H Sodium 118.5 L* Potassium 5.1 H Chloride 88 L Carbon Dioxide 18 L BUN 100 H Creatinine 4.47 H Est GFR ( Amer) 17 L Est GFR (Non-Af Amer) 14 L Glucose 62 L Discharge - Discharge Clinical Impression: Hyponatremia, Acute kidney injury Condition: Stable Disposition: ADMITTED INPATIENT Admitting Provider: Irma (Hospitalist) Unit Admitted: Medical Floor Referrals: MIGUEL SALDANA PA [Primary Care Provider] - Follow up as needed
[2019-02-27] MEDS ORDERED: ONDANSETRON HCL INJ/PF 4 MG/2 ML SDV IV PRN (16:09)
[2019-02-27] MEDS ORDERED: ACETAMINOPHEN 325 MG TABLET PO PRN (16:09)
[2019-02-27] MEDS ORDERED: SODIUM CHLORIDE 1 GM TABLET PO ONE (16:15)
[2019-02-27 17:47] LABS: OSMOLALITY,URINE 288 mOsm/kg (300-900)
[2019-02-27 17:54] LABS: URINE SODIUM < 5 mmol/L (30-90)
[2019-02-27] MEDS: DOCUSATE SODIUM 100 MG/10 ML UDC PO SCH (19:51)
[2019-02-27] MEDS: HEPARIN SOD (PORCINE) 5,000 UNIT/ML 1 ML SYRINGE SUBCUT SCH (21:40)
[2019-02-27] MEDS: FAMOTIDINE 20 MG TABLET PO SCH (21:41)
[2019-02-28] MEDS: HEPARIN SOD (PORCINE) 5,000 UNIT/ML 1 ML SYRINGE SUBCUT SCH ×3 (05:19→21:31)
[2019-02-28] MEDS: NORMAL SALINE 1000 ML 1,000 ML IV PRN ×2 (05:19→19:40)
[2019-02-28 07:47] LABS: ANION GAP 13 (5-19); BLOOD UREA NITROGEN 104 mg/dL (7-20); CALCIUM 8.8 mg/dL (8.4-10.2); CARBON DIOXIDE 15 mmol/L (22-30); CHLORIDE 95 mmol/L (98-107); GLUCOSE 79 mg/dL (75-110); POTASSIUM 5.1 mmol/L (3.6-5.0); SODIUM 122.7 mmol/L (137-145)
[2019-02-28] MEDS: FAMOTIDINE 20 MG TABLET PO SCH ×2 (09:53→21:31)
[2019-02-28] MEDS: DOCUSATE SODIUM 100 MG/10 ML UDC PO SCH ×2 (09:53→17:01)
[2019-02-28] MEDS: THIAMINE HCL 100 MG TABLET PO SCH (09:54)
[2019-02-28] MEDS: SODIUM CHLORIDE 1 GM TABLET PO SCH (09:54)
[2019-02-28] MEDS: CHOLECALCIFEROL (D3) 1,000 UNIT (25 MCG) TABLET PO SCH (09:54)
[2019-02-28] MEDS ORDERED: LORATADINE 10 MG TABLET PO SCH (12:00)
--- NOTE | 2019-02-28 12:02 | PDOC PROGRESS REPORT ---
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 Patient was referred to ER by his engraver jewelry because of worsening hyponatremia. Patient has history of recurrent hyponatremia. At the ER his blood work is remarkable for severe hyponatremia with sodium level of 119, potassium of 5.1 and creatinine of 4.47. Regardless of his severe hyponatremia patient is asymptomatic. Of note patient has recurrent ascites and for which he has had paracentesis every 2 weeks at [facility]. 02/28/2019: This morning patient seen resting in recliner. He is awake alert oriented. He is not in pain or distress. His latest sodium is 122.7. We will continue cautious hydration and monitor his BMP in a.m. Reason For Visit: SEVERE HYPONATREMIA Physical Exam Vital Signs: Temp Pulse Resp BP Pulse Ox 97.4 F 115 H 18 93/54 L 100 02/28/19 07:00 02/28/19 07:00 02/28/19 07:00 02/28/19 07:00 02/28/19 07:00 Intake & Output 02/27/19 02/28/19 03/01/19 06:59 06:59 06:59 Intake Total 1320 Balance 1320 Weight 65.3 kg General appearance: PRESENT: no acute distress Head exam: PRESENT: atraumatic Neck exam: ABSENT: carotid bruit, JVD, lymphadenopathy, thyromegaly Respiratory exam: PRESENT: clear to auscultation keeley. ABSENT: rales, rhonchi, wheezes Cardiovascular exam: PRESENT: RRR. ABSENT: diastolic murmur, rubs, systolic murmur GI/Abdominal exam: PRESENT: ascites Neurological exam: PRESENT: alert, awake, oriented to person, oriented to place, oriented to time, oriented to situation Results Laboratory Results: 02/27/19 14:00 02/28/19 06:37 02/27/19 02/27/19 02/27/19 14:00 14:00 14:00 WBC 11.0 H RBC 4.15 L Hgb 12.5 L Hct 35.3 L MCV 85 MCH 30.0 MCHC 35.3 RDW 15.2 H Plt Count 303 Seg Neutrophils % Not Reportable Lymphocytes % Not Reportable Monocytes % Not Reportable Eosinophils % Not Reportable Basophils % Not Reportable Absolute Neutrophils Not Reportable Absolute Lymphocytes Not Reportable Absolute Monocytes Not Reportable Absolute Eosinophils Not Reportable Absolute Basophils Not Reportable Sodium 118.5 L* Potassium 5.1 H Chloride 88 L Carbon Dioxide 18 L Anion Gap 13 BUN 100 H Creatinine 4.47 H Est GFR ( Amer) 17 L Est GFR (Non-Af Amer) 14 L Glucose 62 L Serum Osmolality 278 Calcium 8.8 Ammonia Urine Osmolality 02/27/19 02/27/19 02/28/19 15:39 17:20 06:37 WBC RBC Hgb Hct MCV MCH MCHC RDW Plt Count Seg Neutrophils % Lymphocytes % Monocytes % Eosinophils % Basophils % Absolute Neutrophils Absolute Lymphocytes Absolute Monocytes Absolute Eosinophils Absolute Basophils Sodium 122.7 L Potassium 5.1 H Chloride 95 L Carbon Dioxide 15 L Anion Gap 13 BUN 104 H Creatinine 4.38 H Est GFR ( Amer) 18 L Est GFR (Non-Af Amer) 15 L Glucose 79 Serum Osmolality Calcium 8.8 Ammonia 19.5 Urine Osmolality 288 L Assessment and Plan - Diagnosis (1) Severe hyponatremia Is this a current diagnosis for this admission?: Yes Plan: His sodium yesterday was 118 today it is 122.7. We will continue cautious hydration. (2) Acute kidney injury superimposed on chronic kidney disease Is this a current diagnosis for this admission?: Yes Plan: Dr. Lomax has been consulted and she will follow him. (3) Alcohol induced cirrhosis of the liver. Is this a current diagnosis for this admission?: Yes Plan: Patient has recurrent ascites which requires paracentesis every 2 weeks. Patient is supplemented with folic acid and thiamine and cholecalciferol. Patient states that he is sober for the last 217 days.
[2019-02-28] MEDS: FLUTICASONE NASAL SPRAY 50 MCG/SPRY 120 SPRAY/16 GM NASL SCH (12:37)
[2019-02-28] MEDS ORDERED: FOLIC ACID/VITAMIN B COMP W-C CAPSULE PO SCH (16:00)
[2019-03-01] MEDS: HEPARIN SOD (PORCINE) 5,000 UNIT/ML 1 ML SYRINGE SUBCUT SCH (05:43)
[2019-03-01 08:23] VITALS: BP 99/49
[2019-03-01 08:45] LABS: ANION GAP 12 (5-19); BLOOD UREA NITROGEN 98 mg/dL (7-20); CALCIUM 8.4 mg/dL (8.4-10.2); CARBON DIOXIDE 14 mmol/L (22-30); CHLORIDE 97 mmol/L (98-107); GLUCOSE 89 mg/dL (75-110); POTASSIUM 4.9 mmol/L (3.6-5.0); SODIUM 123.1 mmol/L (137-145)
[2019-03-01] MEDS: SODIUM CHLORIDE 1 GM TABLET PO SCH (09:15)
[2019-03-01] MEDS: CHOLECALCIFEROL (D3) 1,000 UNIT (25 MCG) TABLET PO SCH (09:15)
[2019-03-01] MEDS: DOCUSATE SODIUM 100 MG/10 ML UDC PO SCH (09:16)
[2019-03-01] MEDS: FAMOTIDINE 20 MG TABLET PO SCH (09:16)
[2019-03-01] MEDS: THIAMINE HCL 100 MG TABLET PO SCH (09:16)
[2019-03-01] MEDS: FLUTICASONE NASAL SPRAY 50 MCG/SPRY 120 SPRAY/16 GM NASL SCH (09:16)
[2019-03-01] MEDS ORDERED: MULTIVITAMIN TABLET PO SCH (10:00)
[2019-03-01] MEDS ORDERED: CIPROFLOXACIN HCL 500 MG TABLET PO SCH (10:00)
--- NOTE | 2019-03-01 10:18 | Left Against Medical Advice ---
Against Medical Advice Admission Date/Time: 02/27/19 16:30 Primary Care Provider: AJ RAMIREZ Date of Patient Emigration: 03/01/19 - Diagnosis: (1) Severe hyponatremia Is this a current diagnosis for this admission?: Yes (2) Acute kidney injury superimposed on chronic kidney disease Is this a current diagnosis for this admission?: Yes (3) Alcohol induced cirrhosis of the liver. 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 Patient was referred to ER by [place] because of worsening hyponatremia. Patient has history of recurrent hyponatremia. At the ER his blood work is remarkable for severe hyponatremia with sodium level of 119, potassium of 5.1 and creatinine of 4.47. Regardless of his severe hyponatremia patient is asymptomatic. Of note patient has recurrent ascites and for which he has had paracentesis every 2 weeks at [facility]. 02/28/2019: This morning patient seen resting in recliner. He is awake alert oriented. He is not in pain or distress. His latest sodium is 122.7. We will continue cautious hydration and monitor his BMP in a.m. 03/01/2019: Patient seen while she is resting in bed comfortably. His blood work shows his sodium is improving from 118-123. His creatinine is slightly improved from 4.49 to 3.59. Patient needs additional 48 to 72 hours for hydration to correct his kidney function and his hyponatremia. But patient decided to leave AGAINST MEDICAL ADVICE. I have long discussion with the patient regarding the risks of hyponatremia and kidney failure which include seizure, bleeding, encephalopathy including , despite my advice patient is adamant to check out.
[2019-03-02 14:12] LABS: PATH REVIEW PATHOLOGIST REVIEWED
--- NOTE | 2019-03-10 12:56 | PDOC H&P ---
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 Patient was referred to ER by his planner/scheduler because of worsening hyponatremia. Patient has also previous recurrent hyponatremia. His blood work shows severe hyponatremia with sodium of 118, potassium 5.1 and creatinine of 4.47. Despite the severe hyponatremia patient is symptomatic. He does not have any nausea, vomiting, chest pain, fever, abdominal pain, diarrhea or urinary complaints. He does not have any dizziness, blurry vision, headache or seizure activity. Patient has recurrent ascites and for which he has had paracentesis every 2-week at [facility]. Claims he is sober for the last 217 days. Past Medical History Cardiac Medical History: Denies: Coronary Artery Disease, Myocardial Infarction, Hypertension Pulmonary Medical History: Denies: Asthma, Bronchitis, Chronic Obstructive Pulmonary Disease (COPD), Pneumonia Neurological Medical History: Denies: Seizures Renal/ Medical History: Reports: End Stage Renal Disease GI Medical History: Reports: Cirrhosis - Alcohol related Musculoskeltal Medical History: Denies: Arthritis Psychiatric Medical History: Denies: Depression Hematology: Denies: Anemia Past Surgical History Past Surgical History: Reports: Other - GERM CELL TUMOR REMOVAL (ABDOMEN) Social History Smoking Status: Never Smoker Frequency of Alcohol Use: None Hx Recreational Drug Use: No Drugs: None Hx Prescription Drug Abuse: No - Advance Directive Resuscitation Status: Full Code Family History Family History: Reviewed & Not Pertinent, Hypertension Parental Family History Reviewed: Yes Children Family History Reviewed: Yes Sibling(s) Family History Reviewed.: Yes Medication/Allergy Home Medications: Ciprofloxacin HCl [Cipro 500 mg Tablet] 500 mg PO DAILY 03/05/19 Fluticasone Propionate [Flonase Nasal [place] 50 Mcg/[place] 16 gm] 2 sprays NASL DAILY 03/05/19 Loratadine [Claritin] 10 mg PO Q2D 03/05/19 Midodrine HCl 2.5 mg PO TID 03/05/19 Multivitamin [Tab-A-Al (Multiple Vitamin) Tablet] 1 tab PO DAILY 03/05/19 Pantoprazole Sodium [Protonix [address] Tablet] 40 mg PO BID 03/05/19 Spironolactone [Aldactone 25 mg Tablet] 12.5 mg PO DAILY 03/05/19 Furosemide [Lasix 20 mg Tablet] 20 mg PO DAILY tablet 03/08/19 Spironolactone [Aldactone 25 mg Tablet] 12.5 mg PO DAILY tablet 03/08/19 Allergies/Adverse Reactions: promethazine HCl [From Phenergan] Allergy (Intermediate, Verified 03/05/19 12:07) dystonic Review of Systems Constitutional: PRESENT: as per HPI Eyes: PRESENT: as per HPI Ears: PRESENT: as per HPI Nose, Mouth, and Throat: PRESENT: as per HPI Cardiovascular: PRESENT: as per HPI Respiratory: PRESENT: as per HPI Gastrointestinal: PRESENT: as per HPI Musculoskeletal: PRESENT: as per HPI Neurological: PRESENT: as per HPI Physical Exam General appearance: PRESENT: no acute distress, thin Head exam: PRESENT: atraumatic Eye exam: PRESENT: conjunctiva pink Mouth exam: PRESENT: dry mucosa Respiratory exam: PRESENT: clear to auscultation ke[place]. ABSENT: rales, rhonchi, wheezes Cardiovascular exam: PRESENT: RRR. ABSENT: diastolic murmur, rubs, systolic murmur GI/Abdominal exam: PRESENT: ascites Neurological exam: PRESENT: alert, awake, oriented to person, oriented to place, oriented to time, oriented to situation Assessment and Plan - Diagnosis (1) Severe hyponatremia Is this a current diagnosis for this admission?: Yes Plan: Patient needs inpatient admission. We will cautiously hydrate him with normal saline at rate of 75 mils per hour. We will monitor his sodium. (2) Acute kidney injury superimposed on chronic kidney disease Is this a current diagnosis for this admission?: Yes Plan: We will continue the cautious hydration. Dr. Lomax also has been consulted and will follow the patient (3) Alcohol induced cirrhosis of the liver Is this a current diagnosis for this admission?: Yes Plan: Follow-up with his primary pathologist. - Inpatient Certification Medical Necessity: Need Close Monitoring Due to Risk of Patient Decompensation, Need For IV Fluids
== END 2019-03-01 12:00 | disposition left against medical advice (07) | DRG 432 ==
LOC: ER 12:26 → EH 16:30 → 4S 19:36
PROVIDERS: ADMIT Internal Medicine; ATTEND Internal Medicine
DX: K70.31 Alcoholic cirrhosis of liver with ascites (principal); K76.7 Hepatorenal syndrome; E87.1 Hypo-osmolality and hyponatremia; N17.9 Acute kidney failure, unspecified; N18.4 Chronic kidney disease, stage 4 (severe); K76.6 Portal hypertension; E87.2 Acidosis; J44.9 Chronic obstructive pulmonary disease, unspecified; F10.10 Alcohol abuse, uncomplicated; E87.70 Fluid overload, unspecified; I12.9 Hypertensive chronic kidney disease with stage 1 through stage 4 chronic kidney disease, or unspecified chronic kidney disease; I95.89 Other hypotension
CPT/HCPCS: 36415; 80048; 82140; 83930; 83935; 84300; 85025; 85610; 96360; 99284; J1644; J3490; J7030

== ENCOUNTER 2019-03-02 07:22 | Day surgery (SDC) | payer OTHER ==
--- NOTE | 2019-02-27 15:50 | PDOC H&P ---
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 Patient was referred to ER by his postpartum nurse because of worsening hyponatremia. Patient has also previous recurrent hyponatremia. His blood work shows severe hyponatremia with sodium of 118, potassium 5.1 and creatinine of 4.47. Despite the severe hyponatremia patient is symptomatic. He does not have any nausea, vomiting, chest pain, fever, abdominal pain, diarrhea or urinary complaints. He does not have any dizziness, blurry vision, headache or seizure activity. Patient has recurrent ascites and for which he has had paracentesis every 2-week at [facility]. Claims he is sober for the last 217 days. Past Medical History Cardiac Medical History: Denies: Coronary Artery Disease, Myocardial Infarction, Hypertension Pulmonary Medical History: Denies: Asthma, Bronchitis, Chronic Obstructive Pulmonary Disease (COPD), Pneumonia Neurological Medical History: Denies: Seizures Renal/ Medical History: Reports: End Stage Renal Disease GI Medical History: Reports: Cirrhosis - Alcohol related Musculoskeltal Medical History: Denies: Arthritis Psychiatric Medical History: Denies: Depression Hematology: Denies: Anemia Past Surgical History Past Surgical History: Reports: Other - GERM CELL TUMOR REMOVAL (ABDOMEN) Social History Smoking Status: Never Smoker Frequency of Alcohol Use: None Hx Recreational Drug Use: No Drugs: None Hx Prescription Drug Abuse: No - Advance Directive Resuscitation Status: Full Code Family History Family History: Reviewed & Not Pertinent, Hypertension Parental Family History Reviewed: Yes Children Family History Reviewed: Yes Sibling(s) Family History Reviewed.: Yes Medication/Allergy Home Medications: Pantoprazole Sodium [Protonix] 40 mg PO DAILY 09/12/18 Ciprofloxacin HCl [Cipro] 500 mg PO DAILY 01/07/19 Fluticasone Propionate [Flonase Nasal Nap[place] 50 Mcg/[place] 16 gm] 2 spray NASL DAILY 01/16/19 Multivitamin [Tab-A-Al (Multiple Vitamin) Tablet] 1 tab PO DAILY 01/16/19 Loratadine 10 mg PO Q2D 01/23/19 Furosemide [Lasix 40 mg Tablet] 40 mg PO DAILY #30 tablet 05/18/19 Spironolactone [Aldactone 25 mg Tablet] 25 mg PO DAILY #30 tablet 01/24/19 Allergies/Adverse Reactions: promethazine HCl [From Phenergan] Allergy (Intermediate, Verified 02/17/19 07:54) dystonic Review of Systems Constitutional: PRESENT: as per HPI Eyes: PRESENT: as per HPI Ears: PRESENT: as per HPI Nose, Mouth, and Throat: PRESENT: as per HPI Cardiovascular: PRESENT: as per HPI Respiratory: PRESENT: as per HPI Gastrointestinal: PRESENT: as per HPI Musculoskeletal: PRESENT: as per HPI Neurological: PRESENT: as per HPI Physical Exam General appearance: PRESENT: no acute distress, thin Head exam: PRESENT: atraumatic Eye exam: PRESENT: conjunctiva pink Mouth exam: PRESENT: dry mucosa Respiratory exam: PRESENT: clear to auscultation keeley. ABSENT: rales, rhonchi, wheezes Cardiovascular exam: PRESENT: RRR. ABSENT: diastolic murmur, rubs, systolic murmur GI/Abdominal exam: PRESENT: ascites Neurological exam: PRESENT: alert, awake, oriented to person, oriented to place, oriented to time, oriented to situation Assessment and Plan - Diagnosis (1) Severe hyponatremia Is this a current diagnosis for this admission?: Yes Plan: Patient needs inpatient admission. We will cautiously hydrate him with normal saline at rate of 75 mils per hour. We will monitor his sodium. (2) Acute kidney injury superimposed on chronic kidney disease Is this a current diagnosis for this admission?: Yes Plan: We will continue the cautious hydration. Dr. Lomax also has been consulted and will follow the patient (3) Alcohol induced cirrhosis of the liver Is this a current diagnosis for this admission?: Yes Plan: Follow-up with his primary pathologist. - Inpatient Certification Medical Necessity: Need Close Monitoring Due to Risk of Patient Decompensation, Need For IV Fluids
[~2019-03-02 07:22] MED LIST: FOLIC ACID/VITAMIN B COMP W-C CAPSULE PO SCH; HEPARIN SOD (PORCINE) 5,000 UNIT/ML 1 ML SYRINGE SUBCUT SCH; NORMAL SALINE 1000 ML 1,000 ML IV PRN; THIAMINE HCL 100 MG TABLET PO SCH
[2019-03-02 08:45] LABS: HEMATOCRIT 35.7 % (37.9-51.0); HEMOGLOBIN 12.1 g/dL (13.5-17.0); MEAN CORPUSCULAR HGB CONC 33.7 g/dL (32.0-36.0); MEAN CORPUSCULAR VOLUME 86 fl (80-97); PLATELET COUNT 230 10^3/uL (150-450); RED BLOOD COUNT 4.16 10^6/uL (4.35-5.55); RED CELL DISTRIBUTION WIDTH 15.8 % (11.5-14.0); WHITE BLOOD COUNT 11.3 10^3/uL (4.0-10.5)
[2019-03-02 08:54] LABS: INTERNATIONAL RATION (INR) 1.18; PROTHROMBIN TIME 15.6 SEC (11.4-15.4)
[2019-03-02 08:55] LABS: PARTIAL THROMBOPLASTIN TIME 37.6 SEC (23.5-35.8)
[2019-03-02 09:03] LABS: BLOOD UREA NITROGEN 97 mg/dL (7-20)
[2019-03-02 11:45] LABS: FLUID APPEARANCE TURBID; FLUID COLOR YELLOW; FLUID SOURCE ASCITES; FLUID VISCOSITY LIQUID
[2019-03-02 11:49] LABS: FLUID TYPE PERITONEAL
--- NOTE | 2019-03-02 11:59 | RADIOLOGY REPORT (SQ) ---
EXAM DESCRIPTION: U/S ABD PARACENTESIS COMPLETED DATE/TIME: 03/02/2019 11:13 am REASON FOR STUDY: ASCITES COMPARISON None. LIMITATIONS: None. PROCEDURE: After obtaining informed consent, the patient was brought to the ultrasound suite. The p rocedure was performed with the patient on a gurney. Ultrasound was used to identify a prominent poc ket of ascites in the left lower quadrant. An appropriate access site was selected. The patient was prepped and draped in usual sterile fashion. The access site was anesthetized with 3.0 mL 1% lidoc cheikh. A Ziif-E-Drofwrob needle was advanced into the fluid. After aspiration of fluid the needle, t he catheter was advanced off the needle into the fluid. A total of 7,650 mL of cloudy straw fluid wa s removed. The patient tolerated the procedure well left the department in satisfactory condition. IMPRESSION: Successful ultrasound-guided paracentesis COMMENT: Patient medication list reviewed: Yes- Quality ID# [id number]:Eligible professional attests to doc umenting in the medical record they obtained, updated, or reviewed the patient's current medications. TECHNICAL DOCUMENTATION: JOB ID: [id number] [employer] All Rights Reserved Reading location - IP/workstation name: [email or web address]
[2019-03-02] MEDS ORDERED: ALBUMIN HUMAN 50 GM/200 ML RTUINJ IV ONE (12:00)
[2019-03-02 13:15] VITALS: BP 88/50
== END 2019-03-02 13:00 | disposition home or self-care (01) ==
LOC: RAD 07:22
PROVIDERS: ATTEND Internal Medicine Gastroenterology
DX: K70.31 Alcoholic cirrhosis of liver with ascites (principal)
CPT/HCPCS: 36415; 84520; 82565; 85027; 85610; 85730; 89050; 49083; P9047; J1644

== ENCOUNTER → 2019-03-04 | Outpatient (CLI) | payer OTHER ==
[2019-03-04 16:39] LABS: ANION GAP 15 (5-19); BLOOD UREA NITROGEN 98 mg/dL (7-20); CALCIUM 8.5 mg/dL (8.4-10.2); CARBON DIOXIDE 15 mmol/L (22-30); CHLORIDE 90 mmol/L (98-107); GLUCOSE 95 mg/dL (75-110); POTASSIUM 4.1 mmol/L (3.6-5.0)
[2019-03-04 16:57] LABS: SODIUM 119.6 mmol/L (137-145)
== END ==
LOC: OD 15:48
PROVIDERS: ATTEND Internal Medicine Nephrology
DX: N17.9 Acute kidney failure, unspecified (principal); N18.3 Chronic kidney disease, stage 3 (moderate); E87.1 Hypo-osmolality and hyponatremia
CPT/HCPCS: 36415; 80048; 83735

== ENCOUNTER 2019-03-05 12:06 | Inpatient (IN) | payer OTHER ==
[2019-03-05 13:07] LABS: ABSOLUTE LYMPHOCYTES (AUTO) 1.3 10^3/uL (0.5-4.7); ABSOLUTE MONOCYTES (AUTO) 1.4 10^3/uL (0.1-1.4); ABSOLUTE NEUT (AUTO) 13.3 10^3/uL (1.7-8.2); BASOPHILS % (AUTO) 0.1 % (0-2); EOSINOPHILS % (AUTO) 0.1 % (0-6); HEMATOCRIT 38.2 % (37.9-51.0); HEMOGLOBIN 12.9 g/dL (13.5-17.0); LYMPHOCYTES % (AUTO) 7.8 % (13-45); MEAN CORPUSCULAR HEMOGLOBIN 29.2 pg (27.0-33.4); MEAN CORPUSCULAR HGB CONC 33.8 g/dL (32.0-36.0); MEAN CORPUSCULAR VOLUME 86 fl (80-97); MONOCYTES % (AUTO) 8.7 % (3-13); PLATELET COUNT 238 10^3/uL (150-450); RED BLOOD COUNT 4.43 10^6/uL (4.35-5.55); RED CELL DISTRIBUTION WIDTH 15.8 % (11.5-14.0); SEGMENTED NEUTROPHILS % (AUTO) 83.3 % (42-78); TOTAL CELLS COUNTED % (AUTO) 100 %
[2019-03-05] MEDS ORDERED: NORMAL SALINE 1000 ML 1,000 ML IV PRN (13:22)
[2019-03-05 14:09] LABS: ALANINE AMINOTRANSFERASE 44 U/L (21-72); ALBUMIN 2.4 g/dL (3.5-5.0); ALKALINE PHOSPHATASE 185 U/L (38-126); ANION GAP 12 (5-19); ASPARTATE AMINO TRANSFERASE 64 U/L (17-59); BILIRUBIN,DIRECT 1.5 mg/dL (0.0-0.4); BILIRUBIN,TOTAL 2.4 mg/dL (0.2-1.3); BLOOD UREA NITROGEN 104 mg/dL (7-20); CALCIUM 8.3 mg/dL (8.4-10.2); CARBON DIOXIDE 15 mmol/L (22-30); CHLORIDE 93 mmol/L (98-107); GLUCOSE 102 mg/dL (75-110); LIPASE 105.9 U/L (23-300); POTASSIUM 4.5 mmol/L (3.6-5.0); TOTAL PROTEIN 4.6 g/dL (6.3-8.2)
[2019-03-05 14:14] LABS: SODIUM 119.9 mmol/L (137-145)
--- NOTE | 2019-03-05 17:41 | ER Document Report ---
ED General - General Chief Complaint: Abnormal Lab Results Stated Complaint: ABNORMAL LABS Primary Care Provider: CHUCK MCDONALD MD [Primary Care Provider] - Follow up as needed Notes: Patient with known liver disease, cirrhosis who presents with low sodium level. Patient has ascites and is drained of that fluid every couple of weeks or so. He had his last drainage on Saturday. Says they took off 8.65 L of fluid and also gave him some albumin. He periodically runs low enough that he needs to come in the hospital for replenishing his sodium. He tried taking salt by mouth to keep his level up, but it did not taste good and he could not do so. Denies any abdominal pains. Denies any fever. When patient presented at triage, he looked as if he was about to arrest. He was poorly responsive and pale-colored. He was rushed back to the bed and trauma 2. Once he was up on the stretcher and could lay down, his color returned somewhat and he seemingly awakened and was able to converse and tell what was going on with him. He says he is has not had alcohol in almost 8 months. TRAVEL OUTSIDE OF THE [place] IN LAST 30 DAYS: No - Related Data Allergies/Adverse Reactions: promethazine HCl [From Phenergan] Allergy (Intermediate, Verified 03/05/19 12:07) dystonic Past Medical History - Social History Smoking Status: Former Smoker Chew tobacco use (# tins/day): No Frequency of alcohol use: Heavy - Formally smoke and drink alcohol heavily, but has not had any alcohol for nearly 8 months. Drug Abuse: None Family History: Reviewed & Not Pertinent, Hypertension Patient has suicidal ideation: No Patient has homicidal ideation: No - Past Medical History Cardiac Medical History: Denies: Hx Congestive Heart Failure Pulmonary Medical History: Reports: Hx COPD Renal/ Medical History: Reports: Hx Renal Insufficiency GI Medical History: Reports: Hx Cirrhosis - Alcohol related Past Surgical History: Reports: Other - GERM CELL TUMOR REMOVAL (ABDOMEN) - Immunizations Hx Diphtheria, Pertussis, Tetanus Vaccination: No Review of Systems - Review of Systems Notes: REVIEW OF SYSTEMS: CONSTITUTIONAL : Denies fever. EENT: Denies eye, ear, nose or mouth or throat pain or other symptoms. CARDIOVASCULAR: Denies chest pain. RESPIRATORY: Denies cough, chest congestion, or shortness of breath. GASTROINTESTINAL: See HPI. Hx liver failure, ascites. GENITOURINARY: Denies difficulty or painful urinating, urinary frequency, blood in urine. MUSCULOSKELETAL: Denies back or neck pain. Denies joint pain or swelling. SKIN: Denies rash or skin lesions. NEUROLOGICAL: Denies LOC or altered mental status. Denies headache. Denies sensory loss or motor deficits. ALL OTHER SYSTEMS REVIEWED AND NEGATIVE. Physical Exam - Vital signs Vitals: Temp Pulse Resp BP Pulse Ox 97.7 F 100 18 75/41 L 100 03/05/19 12:11 03/05/19 12:11 03/05/19 12:11 03/05/19 12:11 03/05/19 12:11 Interpretation: Hypotensive - 75/41. Notes: PHYSICAL EXAMINATION: As mentioned earlier, patient looked like he was about to arrest when he first came in. He was pale and poorly responsive and looked as if he might stop breathing. However, when he was moved from the GENERAL: Well-appearing, in no acute distress. HEAD: Atraumatic, normocephalic. EYES: Pupils equal round and reactive to light, extraocular movements intact. ENT: oropharynx clear without exudates. Moist mucous membranes. NECK: Normal range of motion, supple. LUNGS: Breath sounds clear and equal bilaterally. HEART: Regular rate and rhythm without murmurs. ABDOMEN: Soft, nontender. No guarding or rebound. No masses. Moderate ascites present. No erythematous abdomen. BACK: No tenderness throughout entire back. EXTREMITIES: Normal range of motion without pain. NEUROLOGICAL: Normal speech, normal sensory, motor, and reflex exams. Awake, alert, and oriented x3. Cranial nerves normal. PSYCH: Normal mood, normal affect. SKIN: Warm, dry, no rashes. Course - Vital Signs Vital signs: Temp Pulse Resp BP Pulse Ox 97.9 F 100 23 H 97/59 L 100 03/05/19 17:25 03/05/19 12:11 03/05/19 15:01 03/05/19 15:00 03/05/19 15:01 - Laboratory Result Diagrams: 03/05/19 12:35 03/05/19 13:30 Laboratory results interpreted by me: 03/05/19 03/05/19 12:35 13:30 WBC 16.0 H Hgb 12.9 L RDW 15.8 H Seg Neutrophils % 83.3 H Lymphocytes % 7.8 L Absolute Neutrophils 13.3 H Sodium 119.9 L* Chloride 93 L Carbon Dioxide 15 L BUN 104 H Creatinine 4.41 H Est GFR ( Amer) 17 L Est GFR (Non-Af Amer) 14 L Calcium 8.3 L Total Bilirubin 2.4 H Direct Bilirubin 1.5 H AST 64 H Alkaline Phosphatase 185 H Total Protein 4.6 L Albumin 2.4 L - EKG Interpretation by Me EKG shows normal: Sinus rhythm Rate: Normal Rhythm: NSR Additional EKG results interpreted by me: 03/05/19 18:11 EKG is normal. Discharge - Discharge Clinical Impression: Hyponatremia Cirrhosis of liver Qualifiers: Hepatic cirrhosis type: alcoholic cirrhosis Hypotension Qualifiers: Hypotension type: other hypotension type Qualified Code(s): I95.89 - Other hypotension Condition: Stable Disposition: ADMITTED OBSERVATION Admitting Provider: Elena (Hospitalist) Unit Admitted: IMCU Referrals: CHUCK MCDONALD MD [Primary Care Provider] - Follow up as needed
[2019-03-05] MEDS ORDERED: ONDANSETRON HCL INJ/PF 4 MG/2 ML SDV IV PRN (17:49)
[2019-03-05] MEDS ORDERED: SODIUM CHLORIDE 1 GM TABLET PO SCH (18:00)
--- NOTE | 2019-03-05 18:08 | PDOC H&P ---
History of Present Illness Admission Date/PCP: CHUCK MCDONALD MD Patient complains of: Low sodium levels History of Present Illness: ROSALIE ERN is a 48 year old male with history of cirrhosis of the liver secondary to alcohol abuse, hypertension, ckd ,ex-smoker came to the emergency room after he was notified by Dr. Mcdonald's office that sodium levels are low. In the emergency room as per the ER staff he passed out. But the patient said that lights are too bright he closed his eyes they rushed him to sit in a wheelchair so he became unstable. Denies any nausea vomiting diarrhea denies any fevers. He said he is compliant with his medications. Denies any chest pains. Denies any dizzy spells. He has a abdominal paracentesis was done more than 8 L of fluid was taken out 2 days ago. At that time he was given IV albumin. In the emergency room sodium is around 120 medical consult was called for admission. Past Medical History Cardiac Medical History: Denies: Congestive Heart Failure, Coronary Artery Disease, Myocardial Infarction, Hypertension Pulmonary Medical History: Reports: Chronic Obstructive Pulmonary Disease (COPD) Denies: Asthma, Bronchitis, Pneumonia Neurological Medical History: Denies: Seizures Renal/ Medical History: Reports: End Stage Renal Disease GI Medical History: Reports: Cirrhosis - Alcohol related Musculoskeltal Medical History: Denies: Arthritis Psychiatric Medical History: Denies: Depression Hematology: Denies: Anemia Past Surgical History Past Surgical History: Reports: Other - GERM CELL TUMOR REMOVAL (ABDOMEN) Social History Information Source: Patient Smoking Status: Former Smoker Frequency of Alcohol Use: None Hx Recreational Drug Use: No Drugs: None Hx Prescription Drug Abuse: No - Advance Directive Resuscitation Status: Full Code Family History Family History: Reviewed & Not Pertinent, Hypertension Parental Family History Reviewed: Yes - Family history of diabetes. Children Family History Reviewed: Yes Sibling(s) Family History Reviewed.: Yes Medication/Allergy Home Medications: Pantoprazole Sodium [Protonix] 40 mg PO DAILY 09/12/18 Ciprofloxacin HCl [Cipro] 500 mg PO DAILY 01/07/19 Fluticasone Propionate [Flonase Nasal Evans 50 Mcg/Evans 16 gm] 2 spray NASL DAILY 01/16/19 Multivitamin [Tab-A-Al (Multiple Vitamin) Tablet] 1 tab PO DAILY 01/16/19 Furosemide [Lasix 40 mg Tablet] 40 mg PO QAM 02/27/19 Loratadine [Claritin 10 mg Tablet] 10 mg PO Q2D 02/27/19 Allergies/Adverse Reactions: promethazine HCl [From Phenergan] Allergy (Intermediate, Verified 03/05/19 12:07) dystonic Review of Systems Constitutional: ABSENT: fatigue, fever(s), headache(s), weakness Eyes: ABSENT: visual disturbances Ears: ABSENT: hearing changes Nose, Mouth, and Throat: ABSENT: sore throat Cardiovascular: ABSENT: edema, orthropnea, palpitations Respiratory: ABSENT: dyspnea, hemoptysis Gastrointestinal: PRESENT: other - Poor appetite.. ABSENT: abdominal pain, constipation, dysphagia, hematemesis, hematochezia Genitourinary: ABSENT: dysuria, hematuria Neurological: ABSENT: abnormal speech, dizziness Psychiatric: ABSENT: anxiety Physical Exam Vital Signs: Temp Pulse Resp BP Pulse Ox 97.9 F 100 23 H 97/59 L 100 03/05/19 17:25 03/05/19 12:11 03/05/19 15:01 03/05/19 15:00 03/05/19 15:01 Intake & Output 03/04/19 03/05/19 03/06/19 06:59 06:59 06:59 Weight 63.8 kg General appearance: PRESENT: no acute distress, cooperative, thin Head exam: PRESENT: atraumatic Eye exam: PRESENT: PERRLA Teeth exam: PRESENT: poor dentation Neck exam: ABSENT: carotid bruit, JVD, lymphadenopathy, thyromegaly Respiratory exam: PRESENT: decreased breath sounds Cardiovascular exam: PRESENT: tachycardia GI/Abdominal exam: PRESENT: ascites, other - ascitis with fluid thrill present. Rectal exam: PRESENT: deferred Extremities exam: PRESENT: +1 edema Neurological exam: PRESENT: alert Psychiatric exam: PRESENT: appropriate affect, normal mood. ABSENT: homicidal ideation, suicidal ideation Results Laboratory Results: 03/05/19 12:35 03/05/19 13:30 03/05/19 03/05/19 03/05/19 12:35 12:35 13:30 WBC 16.0 H RBC 4.43 Hgb 12.9 L Hct 38.2 MCV 86 MCH 29.2 MCHC 33.8 RDW 15.8 H Plt Count 238 Seg Neutrophils % 83.3 H Lymphocytes % 7.8 L Monocytes % 8.7 Eosinophils % 0.1 Basophils % 0.1 Absolute Neutrophils 13.3 H Absolute Lymphocytes 1.3 Absolute Monocytes 1.4 Absolute Eosinophils 0.0 Absolute Basophils 0.0 Sodium Cancelled 119.9 L* Potassium Cancelled 4.5 Chloride Cancelled 93 L Carbon Dioxide Cancelled 15 L Anion Gap Cancelled 12 BUN Cancelled 104 H Creatinine Cancelled 4.41 H Est GFR ( Amer) Cancelled 17 L Est GFR (Non-Af Amer) Cancelled 14 L Glucose Cancelled 102 Calcium Cancelled 8.3 L Total Bilirubin Cancelled 2.4 H AST Cancelled 64 H ALT Cancelled 44 Alkaline Phosphatase Cancelled 185 H Total Protein Cancelled 4.6 L Albumin Cancelled 2.4 L Lipase Cancelled 105.9 Assessment and Plan - Diagnosis (1) Hyponatremia Is this a current diagnosis for this admission?: Yes Plan: 03/05/2019-patient serum sodium is around 120. Hyponatremia most likely secondary to cirrhosis of the liver leading to fluid overload. He is on Lasix 20 mg daily, spironolactone 12.5 mg p.o. daily at home. His blood pressure runs low as per the previous charts. Midodrine 5 mg p.o. 3 times daily was resumed. He was started on salt tablets 1 g p.o. twice daily restarted on Lasix and spironolactone to prevent fluid restriction. Low flat diet low-fat diet was requested. GI prophylaxis DVT prophylaxis was initiated. Tylenol is going to be avoided. Aspiration fall seizure precautions are requested. Albumin supplementation was requested. (2) Alcohol induced cirrhosis of the liver Is this a current diagnosis for this admission?: No Plan: 03/05/2019-patient has history of alcohol induced cirrhosis of the liver he comes to the hospital every 2 weeks for abdominal paracentesis. 8 L of fluid was removed 2 days ago. (3) Hypoalbuminemia Is this a current diagnosis for this admission?: Yes Plan: 03/05/2019-hypoalbuminemia with albumin level of 2.4. Albumin supplementation was requested. Hypoalbuminemia most likely secondary to cirrhosis of the liver and poor oral intake. (4) Ascites Qualifiers: Ascites type: due to alcoholic cirrhosis Qualified Code(s): K70.31 - Alcoholic cirrhosis of liver with ascites Is this a current diagnosis for this admission?: Yes Plan: 03/05/2019-patient came in with ascites with fluid thrill. He has abdominal paracentesis was done 2 days ago 8 L of fluid was removed. He could continue to watch the abdominal with and fluid thrill if necessary we do the abdominal paracentesis again during the hospital stay. Fluid restriction was initiated. (5) Hypotension Qualifiers: Hypotension type: other hypotension type Qualified Code(s): I95.89 - Other hypotension Is this a current diagnosis for this admission?: Yes Plan: 03/05/2019-patient has history of low blood pressures blood pressure in the emergency room is 97/60 baseline for him. Started on Midodrin 5 mg p.o. 3 times daily. Continue to closely monitor the blood pressures. (6) Acute kidney injury superimposed on chronic kidney disease Is this a current diagnosis for this admission?: Yes Plan: 03/05/2019-patient creatinine today is 4.4. Acute kidney injury superimposed on chronic kidney disease most likely secondary to third spacing of the fluid secondary to cirrhosis of the liver. nephrology consult was requested. - Time Time Spent with patient: 25-34 minutes Medications reviewed and adjusted accordingly: Yes Anticipated discharge: Home
[2019-03-05 18:30] LABS: INTERNATIONAL RATION (INR) 1.29; PROTHROMBIN TIME 16.1 SEC (11.4-15.4)
[2019-03-05 18:42] LABS: APPEARANCE,URINE SLIGHTLY-CLOUDY; BILIRUBIN,URINE NEGATIVE (NEGATIVE); COLOR,URINE YELLOW; GLUCOSE, URINE NEGATIVE (NEGATIVE); KETONES,URINE NEGATIVE (NEGATIVE); LEUKOCYTE ESTERASE,URINE NEGATIVE (NEGATIVE); NITRITE,URINE NEGATIVE (NEGATIVE); PROTEIN,URINE NEGATIVE (NEGATIVE); URINE SPECIFIC GRAVITY 1.011; UROBILINOGEN,URINE NEGATIVE mg/dL (<2.0)
[2019-03-05] MEDS: FUROSEMIDE 20 MG TABLET PO SCH (18:44)
[2019-03-05] MEDS: ALBUMIN HUMAN 12.5 GM/50 ML RTUINJ IV SCH ×3 (18:47→19:43)
[2019-03-05 19:39] LABS: URINE AMPHETAMINES SCREEN NEGATIVE; URINE BARBITURATES SCREEN NEGATIVE; URINE BENZODIAZEPINES SCREEN NEGATIVE; URINE COCAINE SCREEN NEGATIVE; URINE MARIJUANA (THC) SCREEN NEGATIVE; URINE METHADONE SCREEN NEGATIVE; URINE PHENCYCLIDINE SCREEN NEGATIVE
[2019-03-05] MEDS: SODIUM CHLORIDE 1 GM TABLET PO SCH (19:56)
[2019-03-05] MEDS: MIDODRINE HCL 5 MG TABLET PO SCH (19:56)
[2019-03-05 20:02] LABS: CREATINE KINASE MB 4.07 ng/mL (<4.55)
[2019-03-05 20:07] LABS: TROPONIN I < 0.012 ng/mL
[2019-03-05] MEDS: LEVALBUTEROL HCL NEB 0.63 MG/3 ML AMPUL NEB SCH (21:49)
[2019-03-05] MEDS: FAMOTIDINE 20 MG TABLET PO SCH (22:49)
[2019-03-06] MEDS: LEVALBUTEROL HCL NEB 0.63 MG/3 ML AMPUL NEB SCH ×2 (00:48→05:09)
[2019-03-06 01:29] LABS: CREATINE KINASE MB 3.74 ng/mL (<4.55)
[2019-03-06 01:32] LABS: TROPONIN I < 0.012 ng/mL
[2019-03-06 06:51] LABS: ABSOLUTE LYMPHOCYTES (AUTO) 0.8 10^3/uL (0.5-4.7); ABSOLUTE MONOCYTES (AUTO) 1.1 10^3/uL (0.1-1.4); ABSOLUTE NEUT (AUTO) 9.9 10^3/uL (1.7-8.2); BASOPHILS % (AUTO) 0.2 % (0-2); EOSINOPHILS % (AUTO) 0.1 % (0-6); HEMATOCRIT 33.2 % (37.9-51.0); HEMOGLOBIN 11.2 g/dL (13.5-17.0); LYMPHOCYTES % (AUTO) 6.5 % (13-45); MEAN CORPUSCULAR HEMOGLOBIN 28.9 pg (27.0-33.4); MEAN CORPUSCULAR HGB CONC 33.8 g/dL (32.0-36.0); MEAN CORPUSCULAR VOLUME 85 fl (80-97); MONOCYTES % (AUTO) 9.5 % (3-13); PLATELET COUNT 164 10^3/uL (150-450); RED BLOOD COUNT 3.89 10^6/uL (4.35-5.55); RED CELL DISTRIBUTION WIDTH 15.9 % (11.5-14.0); SEGMENTED NEUTROPHILS % (AUTO) 83.7 % (42-78); TOTAL CELLS COUNTED % (AUTO) 100 %; WHITE BLOOD COUNT 11.8 10^3/uL (4.0-10.5)
[2019-03-06 07:13] LABS: ALANINE AMINOTRANSFERASE 37 U/L (21-72); ALBUMIN 2.6 g/dL (3.5-5.0); ALKALINE PHOSPHATASE 147 U/L (38-126); ANION GAP 15 (5-19); ASPARTATE AMINO TRANSFERASE 47 U/L (17-59); BILIRUBIN,DIRECT 1.6 mg/dL (0.0-0.4); BILIRUBIN,TOTAL 2.9 mg/dL (0.2-1.3); BLOOD UREA NITROGEN 100 mg/dL (7-20); CALCIUM 8.8 mg/dL (8.4-10.2); CARBON DIOXIDE 12 mmol/L (22-30); CHLORIDE 97 mmol/L (98-107); CHOLESTEROL 65.04 mg/dL (0-200); CREATINE KINASE 45 U/L (55-170); GLUCOSE 77 mg/dL (75-110); POTASSIUM 4.5 mmol/L (3.6-5.0); SODIUM 123.5 mmol/L (137-145); TOTAL PROTEIN 4.4 g/dL (6.3-8.2); TRIGLYCERIDES 51 mg/dL (<150)
[2019-03-06 07:24] LABS: DIRECT LDL 53 mg/dL (<100)
[2019-03-06 07:25] LABS: CREATINE KINASE MB 3.72 ng/mL (<4.55); NT PRO BNP 1140 pg/mL (<125)
[2019-03-06 07:27] LABS: TROPONIN I < 0.012 ng/mL
[2019-03-06] MEDS ORDERED: LEVALBUTEROL HCL NEB 0.63 MG/3 ML AMPUL NEB PRN (07:38)
[2019-03-06] MEDS ORDERED: (PENDING PHARMACY ID) (Loratadine [Claritin] 10 MG) PO SCH (08:00)
[2019-03-06] MEDS: FLUTICASONE NASAL SPRAY 50 MCG/SPRY 120 SPRAY/16 GM NASL SCH (09:06)
[2019-03-06] MEDS: FUROSEMIDE 20 MG TABLET PO SCH (09:06)
[2019-03-06] MEDS: SPIRONOLACTONE 25 MG TABLET PO SCH (09:06)
[2019-03-06] MEDS: ENOXAPARIN SODIUM INJ 30 MG/0.3 ML DISP.SYRIN SUBCUT SCH (09:06)
[2019-03-06] MEDS: FAMOTIDINE 20 MG TABLET PO SCH ×2 (09:07→22:04)
[2019-03-06] MEDS: MIDODRINE HCL 5 MG TABLET PO SCH ×3 (09:07→17:22)
[2019-03-06] MEDS: MULTIVITAMIN TABLET PO SCH (09:07)
[2019-03-06] MEDS: SODIUM CHLORIDE 1 GM TABLET PO SCH ×2 (09:07→17:22)
[2019-03-06] MEDS ORDERED: LORATADINE 10 MG TABLET PO SCH (10:00)
--- NOTE | 2019-03-06 10:15 | PDOC PROGRESS REPORT ---
Subjective Progress Note for:: 03/06/19 Subjective:: 48 year old male with history of cirrhosis of the liver secondary to alcohol abuse, hypertension, ckd ,ex-smoker came to the emergency room after he was notified by Dr. Lomax's office that sodium levels are low. In the emergency room as per the ER staff he passed out. But the patient said that lights are too bright he closed his eyes they rushed him to sit in a wheelchair so he became unstable. Denies any nausea vomiting diarrhea denies any fevers. He said he is compliant with his medications. Denies any chest pains. Denies any dizzy spells. He has a abdominal paracentesis was done more than 8 L of fluid was taken out 2 days ago. At that time he was given IV albumin. In the emergency room sodium is around 120 medical consult was called for admission. 03/06/2019-patient admitted with hyponatremia most likely secondary to cirrhosis of the liver leading to hypervolemia and is also has a chronic kidney disease stage IV. On admission sodium is around 120 and it was improved to 123.5. I think serum sodium level is coming close to his baseline. He was on fluid restriction started on salt tablets and he was restarted on Lasix and spironolactone. Plan is to recheck the labs tomorrow. Dr. Gonzales is following the patient. Reason For Visit: HYPONATREMIA Physical Exam Vital Signs: Temp Pulse Resp BP Pulse Ox 97.7 F 114 H 17 91/51 L 100 03/06/19 07:16 03/06/19 08:41 03/06/19 08:41 03/06/19 07:16 03/06/19 08:41 Intake & Output 03/05/19 03/06/19 03/07/19 06:59 06:59 06:59 Intake Total 60 Output Total 0 Balance 60 Weight 67.2 kg General appearance: PRESENT: no acute distress, cooperative, thin Head exam: PRESENT: atraumatic Eye exam: PRESENT: PERRLA Mouth exam: PRESENT: moist, tongue midline Teeth exam: PRESENT: poor dentation Neck exam: ABSENT: carotid bruit, JVD, lymphadenopathy, thyromegaly Respiratory exam: PRESENT: clear to auscultation keeley. ABSENT: rales, rhonchi, wheezes Cardiovascular exam: PRESENT: tachycardia GI/Abdominal exam: PRESENT: ascites, normal bowel sounds, soft. ABSENT: tenderness Rectal exam: PRESENT: deferred Gentrourinary exam: PRESENT: indwelling catheter Neurological exam: PRESENT: alert, awake, oriented to person, oriented to place, oriented to time, oriented to situation, CN II-XII grossly intact. ABSENT: motor sensory deficit Psychiatric exam: PRESENT: appropriate affect, normal mood. ABSENT: homicidal ideation, suicidal ideation Results Laboratory Results: 03/06/19 06:38 03/06/19 06:38 03/05/19 03/05/19 03/05/19 12:35 12:35 13:30 WBC 16.0 H RBC 4.43 Hgb 12.9 L Hct 38.2 MCV 86 MCH 29.2 MCHC 33.8 RDW 15.8 H Plt Count 238 Seg Neutrophils % 83.3 H Lymphocytes % 7.8 L Monocytes % 8.7 Eosinophils % 0.1 Basophils % 0.1 Absolute Neutrophils 13.3 H Absolute Lymphocytes 1.3 Absolute Monocytes 1.4 Absolute Eosinophils 0.0 Absolute Basophils 0.0 Sodium Cancelled 119.9 L* Potassium Cancelled 4.5 Chloride Cancelled 93 L Carbon Dioxide Cancelled 15 L Anion Gap Cancelled 12 BUN Cancelled 104 H Creatinine Cancelled 4.41 H Est GFR ( Amer) Cancelled 17 L Est GFR (Non-Af Amer) Cancelled 14 L Glucose Cancelled 102 Calcium Cancelled 8.3 L Magnesium Total Bilirubin Cancelled 2.4 H AST Cancelled 64 H ALT Cancelled 44 Alkaline Phosphatase Cancelled 185 H Total Protein Cancelled 4.6 L Albumin Cancelled 2.4 L Triglycerides Cholesterol LDL Cholesterol Direct VLDL Cholesterol HDL Cholesterol Lipase Cancelled 105.9 TSH Urine Color Urine Appearance Urine pH Ur Specific [place] Urine Protein Urine Glucose (UA) Urine Ketones Urine Blood Urine Nitrite Ur Leukocyte Esterase Urine WBC (Auto) Urine RBC (Auto) 03/05/19 03/06/19 03/06/19 16:10 06:38 06:38 WBC 11.8 H RBC 3.89 L Hgb 11.2 L Hct 33.2 L MCV 85 MCH 28.9 MCHC 33.8 RDW 15.9 H Plt Count 164 Seg Neutrophils % 83.7 H Lymphocytes % 6.5 L Monocytes % 9.5 Eosinophils % 0.1 Basophils % 0.2 Absolute Neutrophils 9.9 H Absolute Lymphocytes 0.8 Absolute Monocytes 1.1 Absolute Eosinophils 0.0 Absolute Basophils 0.0 Sodium 123.5 L Potassium 4.5 Chloride 97 L Carbon Dioxide 12 L Anion Gap 15 BUN 100 H Creatinine 4.29 H Est GFR ( Amer) 18 L Est GFR (Non-Af Amer) 15 L Glucose 77 Calcium 8.8 Magnesium 2.0 Total Bilirubin 2.9 H AST 47 ALT 37 Alkaline Phosphatase 147 H Total Protein 4.4 L Albumin 2.6 L Triglycerides 51 Cholesterol 65.04 LDL Cholesterol Direct 53 VLDL Cholesterol 10.0 HDL Cholesterol 21 L Lipase TSH Urine Color YELLOW Urine Appearance SLIGHTLY-CLOUDY Urine pH 5.0 Ur Specific [place] 1.011 Urine Protein NEGATIVE Urine Glucose (UA) NEGATIVE Urine Ketones NEGATIVE Urine Blood SMALL H Urine Nitrite NEGATIVE Ur Leukocyte Esterase NEGATIVE Urine WBC (Auto) 3 Urine RBC (Auto) 0 03/06/19 06:38 WBC RBC Hgb Hct MCV MCH MCHC RDW Plt Count Seg Neutrophils % Lymphocytes % Monocytes % Eosinophils % Basophils % Absolute Neutrophils Absolute Lymphocytes Absolute Monocytes Absolute Eosinophils Absolute Basophils Sodium Potassium Chloride Carbon Dioxide Anion Gap BUN Creatinine Est GFR ( Amer) Est GFR (Non-Af Amer) Glucose Calcium Magnesium Total Bilirubin AST ALT Alkaline Phosphatase Total Protein Albumin Triglycerides Cholesterol LDL Cholesterol Direct VLDL Cholesterol HDL Cholesterol Lipase TSH 2.78 Urine Color Urine Appearance Urine pH Ur Specific [place] Urine Protein Urine Glucose (UA) Urine Ketones Urine Blood Urine Nitrite Ur Leukocyte Esterase Urine WBC (Auto) Urine RBC (Auto) 03/05/19 03/05/19 03/06/19 18:59 18:59 00:49 Creatine Kinase 56 58 CK-MB (CK-2) 4.07 Troponin I < 0.012 NT-Pro-B Natriuret Pep 03/06/19 03/06/19 03/06/19 00:49 06:38 06:38 Creatine Kinase 45 L CK-MB (CK-2) 3.74 3.72 Troponin I < 0.012 < 0.012 NT-Pro-B Natriuret Pep 1140 H Assessment and Plan - Diagnosis (1) Hyponatremia Is this a current diagnosis for this admission?: Yes Plan: 03/05/2019-patient serum sodium is around 120. Hyponatremia most likely secondary to cirrhosis of the liver leading to fluid overload. He is on Lasix 20 mg daily, spironolactone 12.5 mg p.o. daily at home. His blood pressure runs low as per the previous charts. Midodrine 5 mg p.o. 3 times daily was resumed. He was started on salt tablets 1 g p.o. twice daily restarted on Lasix and spironolactone to prevent fluid restriction. Low flat diet low-fat diet was requested. GI prophylaxis DVT prophylaxis was initiated. Tylenol is going to be avoided. Aspiration fall seizure precautions are requested. Albumin supp lementation was requested. 03/06/2019-patient is admitted with hyponatremia serum sodium level around 120. He was started on salt tablets and also on Lasix and spironolactone. Sodium levels improved to 123.5. Patient is asymptomatic. Plan is to repeat the labs tomorrow. I think patient has chronic hyponatremia most likely secondary to cirrhosis of the liver. (2) Alcohol induced cirrhosis of the liver Is this a current diagnosis for this admission?: No Plan: 03/05/2019-patient has history of alcohol induced cirrhosis of the liver he comes to the hospital every 2 weeks for abdominal paracentesis. 8 L of fluid was removed 2 days ago. 03/06/2019-patient has history of heavy alcohol use leading to cirrhosis of the liver. He comes every 2 weeks to the hospital for abdominal paracentesis. Last time abdominal tap was done 3 days ago more than 8.6 L of fluid is removed. He received albumin at that time. (3) Hypoalbuminemia Is this a current diagnosis for this admission?: Yes Plan: 03/05/2019-hypoalbuminemia with albumin level of 2.4. Albumin supplementation was requested. Hypoalbuminemia most likely secondary to cirrhosis of the liver and poor oral intake. (4) Ascites Qualifiers: Ascites type: due to alcoholic cirrhosis Qualified Code(s): K70.31 - Alcoholic cirrhosis of liver with ascites Is this a current diagnosis for this admission?: Yes Plan: 03/05/2019-patient came in with ascites with fluid thrill. He has abdominal paracentesis was done 2 days ago 8 L of fluid was removed. He could continue to watch the abdominal with and fluid thrill if necessary we do the abdominal paracentesis again during the hospital stay. Fluid restriction was initiated. 03/06/2019-abdominal examination today shows ascites with fluid thrill plan is to continue to closely monitor the ascites if needed we will arrange for abdominal paracentesis during this hospital stay. (5) Hypotension Qualifiers: Hypotension type: other hypotension type Qualified Code(s): I95.89 - Other hypotension Is this a current diagnosis for this admission?: Yes Plan: 03/05/2019-patient has history of low blood pressures blood pressure in the emergency room is 97/60 baseline for him. Started on Midodrin 5 mg p.o. 3 times daily. Continue to closely monitor the blood pressures. 03/06/2019-patient has a chronic hypertension blood pressure is 91/51 asymptomatic. Aspiration fall precautions are recommended. (6) Acute kidney injury superimposed on chronic kidney disease Is this a current diagnosis for this admission?: Yes Plan: 03/05/2019-patient creatinine today is 4.4. Acute kidney injury superimposed on chronic kidney disease most likely secondary to third spacing of the fluid secondary to cirrhosis of the liver. nephrology consult was requested. 03/06/2019-patient creatinine is 4.29 today on admission it is 4.4. It is improving. Chronic kidney disease stage IV most likely secondary to hepatorenal syndrome. - Time Time Spent with patient: 25-34 minutes Medications reviewed and adjusted accordingly: Yes Anticipated discharge: Home
--- NOTE | 2019-03-06 11:45 | PDOC CONSULTATION ---
Consultation Consult Date: 03/06/19 Provider Consulted: Dulce BURRIS Consult reason:: KAREN, A/c on chronic Hyponatremia History of Present Illness Admission Date/PCP: 03/05/19 18:16 CHUCK MCDONALD MD History of Present Illness: ROSALIE REN is a 48 year old male with history of cirrhosis of the liver secondary to alcohol abuse, Progressive CKD stage III/IV with his most recent creatinine 2.1 in early January,Chronic hyponatremia with sodium usually running in the low 120s and remains asymptomatic, chronic hypotension was admitted with history of low sodium of 119 on elective labs yesterday.He was asked to go to the ER where he had a presyncopal event. He was admitted for further e valuations and treatment. Currently sodium is 123 and he feels a whole lot better. He mentions that he has been having frequent paracenteses because of obvious persistent abdominal distention which has been taking a turn for the worse over the last 4 to 6 weeks. His last large-volume paracentesis of approximately 8 L under IV albumin was last week. He is not keeping up with fluid restrictions as has been told to him. He denies any history of abdominal pains, nausea vomiting, fever or chills. He has intermittent orthostasis.He follows with [facility] but has not been told to be listed. Labs and medications were reviewed with the patient and discussions were done with the tr eating nurse Tineo. Past Medical History Cardiac Medical History: Reports: Other - Chronic hypotension Denies: Coronary Artery Disease, Myocardial Infarction Pulmonary Medical History: Reports: Chronic Obstructive Pulmonary Disease (COPD) Denies: Asthma, Bronchitis, Pneumonia Neurological Medical History: Denies: Seizures Renal/ Medical History: Reports: Chronic Kidney Disease Stage III, Chronic Kidney Disease Stage IV GI Medical History: Reports: Cirrhosis - Alcohol related Musculoskeltal Medical History: Denies: Arthritis Psychiatric Medical History: Denies: Depression Past Surgical History Past Surgical History: Reports: Other - GERM CELL TUMOR REMOVAL (ABDOMEN) Social History Smoking Status: Never Smoker Frequency of Alcohol Use: None Hx Recreational Drug Use: No Drugs: None Hx Prescription Drug Abuse: No - Advance Directive Resuscitation Status: Full Code Family History Parental Family History Reviewed: Yes - Denies any history of ESRD. Children Family History Reviewed: No Sibling(s) Family History Reviewed.: No Medication/Allergy Home Medications: Ciprofloxacin HCl [Cipro 500 mg Tablet] 500 mg PO DAILY 03/05/19 Fluticasone Propionate [Flonase Nasal [place] 50 Mcg/[place] 16 gm] 2 sprays NASL DAILY 03/05/19 Furosemide [Lasix 20 mg Tablet] 20 mg PO QAM 03/05/19 Loratadine [Claritin] 10 mg PO Q2D 03/05/19 Midodrine HCl 2.5 mg PO TID 03/05/19 Multivitamin [Tab-A-Al (Multiple Vitamin) Tablet] 1 tab PO DAILY 03/05/19 Pantoprazole Sodium [Protonix [address] Tablet] 40 mg PO BID 03/05/19 Spironolactone [Aldactone 25 mg Tablet] 12.5 mg PO DAILY 03/05/19 Allergies/Adverse Reactions: promethazine HCl [From Phenergan] Allergy (Intermediate, Verified 03/05/19 12:07) dystonic Review of Systems Constitutional: PRESENT: anorexia, fatigue, weakness. ABSENT: chills, fever(s), headache(s), night sweats Eyes: ABSENT: visual disturbances Ears: ABSENT: hearing changes Nose, Mouth, and Throat: ABSENT: mouth pain, sore throat Cardiovascular: PRESENT: dyspnea on exertion. ABSENT: chest pain, edema, orthropnea, palpitations Respiratory: PRESENT: dyspnea. ABSENT: cough, hemoptysis Gastrointestinal: ABSENT: abdominal pain, coffee ground emesis, constipation, diarrhea, dysphagia, heartburn, hematemesis, hematochezia Genitourinary: ABSENT: dysuria, hematuria Musculoskeletal: ABSENT: deformity, joint swelling Integumentary: ABSENT: diaphoresis, erythema, lesions, pruritus, rash Neurological: ABSENT: abnormal gait, abnormal movements, abnormal speech, confusion, convulsions, focal weakness Hematologic/Lymphatic: ABSENT: easy bruising, lymphadenopathy Physical Exam Vital Signs: Temp Pulse Resp BP Pulse Ox 97.7 F 114 H 17 91/51 L 100 03/06/19 07:16 03/06/19 08:41 03/06/19 08:41 03/06/19 07:16 03/06/19 08:41 Intake & Output 03/05/19 03/06/19 03/07/19 06:59 06:59 06:59 Intake Total 60 Output Total 0 Balance 60 Weight 67.2 kg General appearance: PRESENT: no acute distress Eye exam: PRESENT: EOMI, PERRLA Mouth exam: PRESENT: neck supple. ABSENT: moist Neck exam: ABSENT: lymphadenopathy, meningismus, thyromegaly, tracheal deviation Respiratory exam: PRESENT: clear to auscultation keeley. ABSENT: crackles Cardiovascular exam: PRESENT: +S1, +S2 GI/Abdominal exam: PRESENT: ascites, distended, firm, normal bowel sounds, soft. ABSENT: guarding, organomegaly Extremities exam: ABSENT: pedal edema Neurological exam: PRESENT: alert, awake, oriented to person, oriented to place Skin exam: ABSENT: cyanosis, intact, mottled Results Laboratory Results: 03/06/19 06:38 03/06/19 06:38 03/05/19 03/05/19 03/05/19 12:35 12:35 13:30 WBC 16.0 H RBC 4.43 Hgb 12.9 L Hct 38.2 MCV 86 MCH 29.2 MCHC 33.8 RDW 15.8 H Plt Count 238 Seg Neutrophils % 83.3 H Lymphocytes % 7.8 L Monocytes % 8.7 Eosinophils % 0.1 Basophils % 0.1 Absolute Neutrophils 13.3 H Absolute Lymphocytes 1.3 Absolute Monocytes 1.4 Absolute Eosinophils 0.0 Absolute Basophils 0.0 Sodium Cancelled 119.9 L* Potassium Cancelled 4.5 Chloride Cancelled 93 L Carbon Dioxide Cancelled 15 L Anion Gap Cancelled 12 BUN Cancelled 104 H Creatinine Cancelled 4.41 H Est GFR ( Amer) Cancelled 17 L Est GFR (Non-Af Amer) Cancelled 14 L Glucose Cancelled 102 Calcium Cancelled 8.3 L Magnesium Total Bilirubin Cancelled 2.4 H AST Cancelled 64 H ALT Cancelled 44 Alkaline Phosphatase Cancelled 185 H Total Protein Cancelled 4.6 L Albumin Cancelled 2.4 L Triglycerides Cholesterol LDL Cholesterol Direct VLDL Cholesterol HDL Cholesterol Lipase Cancelled 105.9 TSH Urine Color Urine Appearance Urine pH Ur Specific [place] Urine Protein Urine Glucose (UA) Urine Ketones Urine Blood Urine Nitrite Ur Leukocyte Esterase Urine WBC (Auto) Urine RBC (Auto) 03/05/19 03/06/19 03/06/19 16:10 06:38 06:38 WBC 11.8 H RBC 3.89 L Hgb 11.2 L Hct 33.2 L MCV 85 MCH 28.9 MCHC 33.8 RDW 15.9 H Plt Count 164 Seg Neutrophils % 83.7 H Lymphocytes % 6.5 L Monocytes % 9.5 Eosinophils % 0.1 Basophils % 0.2 Absolute Neutrophils 9.9 H Absolute Lymphocytes 0.8 Absolute Monocytes 1.1 Absolute Eosinophils 0.0 Absolute Basophils 0.0 Sodium 123.5 L Potassium 4.5 Chloride 97 L Carbon Dioxide 12 L Anion Gap 15 BUN 100 H Creatinine 4.29 H Est GFR ( Amer) 18 L Est GFR (Non-Af Amer) 15 L Glucose 77 Calcium 8.8 Magnesium 2.0 Total Bilirubin 2.9 H AST 47 ALT 37 Alkaline Phosphatase 147 H Total Protein 4.4 L Albumin 2.6 L Triglycerides 51 Cholesterol 65.04 LDL Cholesterol Direct 53 VLDL Cholesterol 10.0 HDL Cholesterol 21 L Lipase TSH Urine Color YELLOW Urine Appearance SLIGHTLY-CLOUDY Urine pH 5.0 Ur Specific [place] 1.011 Urine Protein NEGATIVE Urine Glucose (UA) NEGATIVE Urine Ketones NEGATIVE Urine Blood SMALL H Urine Nitrite NEGATIVE Ur Leukocyte Esterase NEGATIVE Urine WBC (Auto) 3 Urine RBC (Auto) 0 03/06/19 06:38 WBC RBC Hgb Hct MCV MCH MCHC RDW Plt Count Seg Neutrophils % Lymphocytes % Monocytes % Eosinophils % Basophils % Absolute Neutrophils Absolute Lymphocytes Absolute Monocytes Absolute Eosinophils Absolute Basophils Sodium Potassium Chloride Carbon Dioxide Anion Gap BUN Creatinine Est GFR ( Amer) Est GFR (Non-Af Amer) Glucose Calcium Magnesium Total Bilirubin AST ALT Alkaline Phosphatase Total Protein Albumin Triglycerides Cholesterol LDL Cholesterol Direct VLDL Cholesterol HDL Cholesterol Lipase TSH 2.78 Urine Color Urine Appearance Urine pH Ur Specific [place] Urine Protein Urine Glucose (UA) Urine Ketones Urine Blood Urine Nitrite Ur Leukocyte Esterase Urine WBC (Auto) Urine RBC (Auto) 03/05/19 03/05/19 03/06/19 18:59 18:59 00:49 Creatine Kinase 56 58 CK-MB (CK-2) 4.07 Troponin I < 0.012 NT-Pro-B Natriuret Pep 03/06/19 03/06/19 03/06/19 00:49 06:38 06:38 Creatine Kinase 45 L CK-MB (CK-2) 3.74 3.72 Troponin I < 0.012 < 0.012 NT-Pro-B Natriuret Pep 1140 H Assessment & Plan - Diagnosis (1) Hypotension Qualifiers: Hypotension type: other hypotension type Qualified Code(s): I95.89 - Other hypotension Is this a current diagnosis for this admission?: Yes Plan: He looks clinically dehydrated and intravascularly volume depleted. I am going to gently hydrate him with a liter of normal saline.We will also cut back his Lasix to just 20 mg daily. (2) Acute kidney injury superimposed on chronic kidney disease Is this a current diagnosis for this admission?: Yes Plan: I believe he has a combination of prerenal issues obviously along with possible hepatorenal syndrome given his recent deterioration of evidences to his portal hypertension. He has been requiring more frequent centesis over the last 4 to 6 weeks which is a bad sign. He is on multiple diuretics were added along with limitation of fluid could lead him into rapid deterioration of his renal functions. He does not show any signs of bacterial peritonitis. (3) Alcohol induced cirrhosis of the liver. Plan: Since he has been counting his days of alcohol and he says they are 222 days now. He should be following closely with [facility] to see if he has any chance of getting liver transplant. (4) Metabolic acidosis Plan: Start him on sodium bicarb replacements. Monitor. (5) Severe hyponatremia Plan: Currently better at 123 which apparently is his baseline. One would have thought of starting him on tolvaptan but given his cirrhosis and abnormal liver function tests it is contraindicated.
[2019-03-06] MEDS ORDERED: NORMAL SALINE 1000 ML 1,000 ML IV PRN (12:03)
[2019-03-06] MEDS: SODIUM BICARBONATE 650 MG TABLET PO SCH ×2 (17:22→23:07)
[2019-03-07] MEDS: SODIUM BICARBONATE 650 MG TABLET PO SCH ×4 (05:28→23:01)
[2019-03-07 05:57] LABS: ABSOLUTE LYMPHOCYTES (AUTO) 0.9 10^3/uL (0.5-4.7); ABSOLUTE MONOCYTES (AUTO) 1.3 10^3/uL (0.1-1.4); BASOPHILS % (AUTO) 0.2 % (0-2); EOSINOPHILS % (AUTO) 0.1 % (0-6); HEMATOCRIT 35.2 % (37.9-51.0); HEMOGLOBIN 12.1 g/dL (13.5-17.0); LYMPHOCYTES % (AUTO) 6.1 % (13-45); MEAN CORPUSCULAR HEMOGLOBIN 29.5 pg (27.0-33.4); MEAN CORPUSCULAR HGB CONC 34.3 g/dL (32.0-36.0); MEAN CORPUSCULAR VOLUME 86 fl (80-97); MONOCYTES % (AUTO) 8.9 % (3-13); PLATELET COUNT 173 10^3/uL (150-450); RED BLOOD COUNT 4.09 10^6/uL (4.35-5.55); RED CELL DISTRIBUTION WIDTH 16.3 % (11.5-14.0); SEGMENTED NEUTROPHILS % (AUTO) 84.7 % (42-78); TOTAL CELLS COUNTED % (AUTO) 100 %; WHITE BLOOD COUNT 14.1 10^3/uL (4.0-10.5)
[2019-03-07 06:18] LABS: ALANINE AMINOTRANSFERASE 39 U/L (21-72); ALBUMIN 2.6 g/dL (3.5-5.0); ALKALINE PHOSPHATASE 165 U/L (38-126); ANION GAP 13 (5-19); ASPARTATE AMINO TRANSFERASE 54 U/L (17-59); BILIRUBIN,DIRECT 1.9 mg/dL (0.0-0.4); BILIRUBIN,TOTAL 3.4 mg/dL (0.2-1.3); BLOOD UREA NITROGEN 102 mg/dL (7-20); CALCIUM 8.7 mg/dL (8.4-10.2); CARBON DIOXIDE 14 mmol/L (22-30); CHLORIDE 101 mmol/L (98-107); GLUCOSE 88 mg/dL (75-110); POTASSIUM 4.1 mmol/L (3.6-5.0); SODIUM 127.7 mmol/L (137-145); TOTAL PROTEIN 4.9 g/dL (6.3-8.2)
[2019-03-07] MEDS: MULTIVITAMIN TABLET PO SCH (09:17)
[2019-03-07] MEDS: MIDODRINE HCL 5 MG TABLET PO SCH ×3 (09:17→17:15)
[2019-03-07] MEDS: ENOXAPARIN SODIUM INJ 30 MG/0.3 ML DISP.SYRIN SUBCUT SCH (09:17)
[2019-03-07] MEDS: SPIRONOLACTONE 25 MG TABLET PO SCH (09:17)
[2019-03-07] MEDS: FAMOTIDINE 20 MG TABLET PO SCH ×2 (09:18→21:22)
[2019-03-07] MEDS: FLUTICASONE NASAL SPRAY 50 MCG/SPRY 120 SPRAY/16 GM NASL SCH (09:18)
[2019-03-07] MEDS ORDERED: FUROSEMIDE 20 MG TABLET PO SCH (10:00)
--- NOTE | 2019-03-07 10:37 | PDOC PROGRESS REPORT ---
Subjective Progress Note for:: 03/07/19 Subjective:: 48 year old male with history of cirrhosis of the liver secondary to alcohol abuse, hypertension, ckd ,ex-smoker came to the emergency room after he was notified by Dr. Lomax's office that sodium levels are low. In the emergency room as per the ER staff he passed out. But the patient said that lights are too bright he closed his eyes they rushed him to sit in a wheelchair so he became unstable. Denies any nausea vomiting diarrhea denies any fevers. He said he is compliant with his medications. Denies any chest pains. Denies any dizzy spells. He has a abdominal paracentesis was done more than 8 L of fluid was taken out 2 days ago. At that time he was given IV albumin. In the emergency room sodium is around 120 medical consult was called for admission. 03/06/2019-patient admitted with hyponatremia most likely secondary to cirrhosis of the liver leading to hypervolemia and is also has a chronic kidney disease stage IV. On admission sodium is around 120 and it was improved to 123.5. I think serum sodium level is coming close to his baseline. He was on fluid restriction started on salt tablets and he was restarted on Lasix and spironolactone. Plan is to recheck the labs tomorrow. Dr. Gonzales is following the patient. 03/[id number]-eoca-old male with history of cirrhosis of the liver, hepatorenal syndrome admitted with hyponatremia with sodium of around 120. Today's sodium is 127. Nephrology consult was done. No acute events during the hospital stay. Reason For Visit: HYPONATREMIA Physical Exam Vital Signs: Temp Pulse Resp BP Pulse Ox 97.4 F 112 H 16 97/55 L 98 03/07/19 07:17 03/07/19 07:17 03/07/19 07:17 03/07/19 07:17 03/07/19 07:17 Intake & Output 03/06/19 03/07/19 03/08/19 06:59 06:59 06:59 Intake Total 60 1470 Output Total 0 800 Balance 60 670 Weight 67.2 kg 63.9 kg General appearance: PRESENT: no acute distress Head exam: PRESENT: atraumatic Eye exam: PRESENT: PERRLA Ear exam: PRESENT: normal external ear exam Mouth exam: PRESENT: moist, tongue midline Teeth exam: PRESENT: poor dentation Neck exam: ABSENT: carotid bruit, JVD, lymphadenopathy, thyromegaly Respiratory exam: PRESENT: decreased breath sounds Cardiovascular exam: PRESENT: tachycardia GI/Abdominal exam: PRESENT: ascites, normal bowel sounds Rectal exam: PRESENT: deferred Extremities exam: PRESENT: full ROM. ABSENT: calf tenderness, clubbing, pedal edema Neurological exam: PRESENT: alert, awake, oriented to person, oriented to place, oriented to time, oriented to situation, CN II-XII grossly intact. ABSENT: motor sensory deficit Results Laboratory Results: 03/07/19 05:26 03/07/19 05:26 03/07/19 03/07/19 05:26 05:26 WBC 14.1 H RBC 4.09 L Hgb 12.1 L Hct 35.2 L MCV 86 MCH 29.5 MCHC 34.3 RDW 16.3 H Plt Count 173 Seg Neutrophils % 84.7 H Lymphocytes % 6.1 L Monocytes % 8.9 Eosinophils % 0.1 Basophils % 0.2 Absolute Neutrophils 12.0 H Absolute Lymphocytes 0.9 Absolute Monocytes 1.3 Absolute Eosinophils 0.0 Absolute Basophils 0.0 Sodium 127.7 L Potassium 4.1 Chloride 101 Carbon Dioxide 14 L Anion Gap 13 BUN 102 H Creatinine 4.12 H Est GFR ( Amer) 19 L Est GFR (Non-Af Amer) 16 L Glucose 88 Calcium 8.7 Magnesium 2.0 Total Bilirubin 3.4 H AST 54 ALT 39 Alkaline Phosphatase 165 H Total Protein 4.9 L Albumin 2.6 L 03/05/19 03/05/19 03/06/19 18:59 18:59 00:49 Creatine Kinase 56 58 CK-MB (CK-2) 4.07 Troponin I < 0.012 NT-Pro-B Natriuret Pep 03/06/19 03/06/19 03/06/19 00:49 06:38 06:38 Creatine Kinase 45 L CK-MB (CK-2) 3.74 3.72 Troponin I < 0.012 < 0.012 NT-Pro-B Natriuret Pep 1140 H Assessment and Plan - Diagnosis (1) Hyponatremia Is this a current diagnosis for this admission?: Yes Plan: 03/05/2019-patient serum sodium is around 120. Hyponatremia most likely secondary to cirrhosis of the liver leading to fluid overload. He is on Lasix 20 mg daily, spironolactone 12.5 mg p.o. daily at home. His blood pressure runs low as per the previous charts. Midodrine 5 mg p.o. 3 times daily was resumed. He was started on salt tablets 1 g p.o. twice daily restarted on Lasix and spironolactone to prevent fluid restriction. Low flat diet low-fat diet was requested. GI prophylaxis DVT prophylaxis was initiated. Tylenol is going to be avoided. Aspiration fall seizure precautions are requested. Albumin supplementation was requested. 03/06/2019-patient is admitted with hyponatremia serum sodium level around 120. He was started on salt tablets and also on Lasix and spironolactone. Sodium levels improved to 123.5. Patient is asymptomatic. Plan is to repeat the labs tomorrow. I think patient has chronic hyponatremia most likely secondary to cirrhosis of the liver. 03/07/2019-serum sodium is 127 today his baseline sodium is around 125. Salt tablet supplementation was discontinued. Patient received 1 L of normal saline yesterday. Plan is to continue to watch for fluid overload. (2) Alcohol induced cirrhosis of the liver Is this a current diagnosis for this admission?: No Plan: 03/05/2019-patient has history of alcohol induced cirrhosis of the liver he comes to the hospital every 2 weeks for abdominal paracentesis. 8 L of fluid was removed 2 days ago. 03/06/2019-patient has history of heavy alcohol use leading to cirrhosis of the liver. He comes every 2 weeks to the hospital for abdominal paracentesis. Last time abdominal tap was done 3 days ago more than 8.6 L of fluid is removed. He received albumin at that time. 03/07/2019-patient has alcohol induced to the stress of the liver he comes to the hospital for paracentesis every 2 weeks. Paracentesis was done 3 days ago more than 8.6 L of fluid is removed. (3) Hypoalbuminemia Is this a current diagnosis for this admission?: Yes Plan: 03/05/2019-hypoalbuminemia with albumin level of 2.4. Albumin supplementation was requested. Hypoalbuminemia most likely secondary to cirrhosis of the liver and poor oral intake. 03/07/2019-patient serum albumin is around 2.6. He received albumin supplementation during this hospital stay. (4) Ascites Qualifiers: Ascites type: due to alcoholic cirrhosis Qualified Code(s): K70.31 - Alcoholic cirrhosis of liver with ascites Is this a current diagnosis for this admission?: Yes Plan: 03/05/2019-patient came in with ascites with fluid thrill. He has abdominal paracentesis was done 2 days ago 8 L of fluid was removed. He could continue to watch the abdominal with and fluid thrill if necessary we do the abdominal paracentesis again during the hospital stay. Fluid restriction was initiated. 03/06/2019-abdominal examination today shows ascites with fluid thrill plan is to continue to closely monitor the ascites if needed we will arrange for abdominal paracentesis during this hospital stay. 2018-patient admitted with ascites plan is to continue to monitor the ascitic fluid and abdominal distention if necessary will arrange for abdominal paracentesis. (5) Hypotension Qualifiers: Hypotension type: other hypotension type Qualified Code(s): I95.89 - Other hypotension Is this a current diagnosis for this admission?: Yes Plan: 03/05/2019-patient has history of low blood pressures blood pressure in the emergency room is 97/60 baseline for him. Started on Midodrin 5 mg p.o. 3 times daily. Continue to closely monitor the blood pressures. 03/06/2019-patient has a chronic hypertension blood pressure is 91/51 asymptomatic. Aspiration fall precautions are recommended. 03/07/2019-patient has persistent hypotension blood pressure is 97/55. At baseline. (6) Acute kidney injury superimposed on chronic kidney disease Is this a current diagnosis for this admission?: Yes Plan: 03/05/2019-patient creatinine today is 4.4. Acute kidney injury superimposed on chronic kidney disease most likely secondary to third spacing of the fluid secondary to cirrhosis of the liver. nephrology consult was requested. 03/06/2019-patient creatinine is 4.29 today on admission it is 4.4. It is improving. Chronic kidney disease stage IV most likely secondary to hepatorenal syndrome. 03/07/2019-patient serum creatinine is 4.12 acute kidney injury superimposed on chronic kidney disease most likely secondary to hepatorenal syndrome. On admission creatinine is 4.4 improved to 4.12 today. - Time Time Spent with patient: 25-34 minutes Medications reviewed and adjusted accordingly: Yes Anticipated discharge: Home
[2019-03-08] MEDS: SODIUM BICARBONATE 650 MG TABLET PO SCH (05:16)
[2019-03-08 08:37] VITALS: BP 92/52
--- NOTE | 2019-03-08 10:53 | PDOC DISCHARGE SUMMARY ---
General - Admit/Disc Date/PCP Admission Date/Primary Care Provider: 03/05/19 18:16 CHUCK MCDONALD MD Discharge Date: 03/08/19 - Discharge Diagnosis (1) Hyponatremia Is this a current diagnosis for this admission?: Yes Summary: 03/05/2019-patient serum sodium is around 120. Hyponatremia most likely secondary to cirrhosis of the liver leading to fluid overload. He is on Lasix 20 mg daily, spironolactone 12.5 mg p.o. daily at home. His blood pressure runs low as per the previous charts. Midodrine 5 mg p.o. 3 times daily was resumed. He was started on salt tablets 1 g p.o. twice daily restarted on Lasix and spironolactone to prevent fluid restriction. Low flat diet low-fat diet was requested. GI prophylaxis DVT prophylaxis was initiated. Tylenol is going to be avoided. Aspiration fall seizure precautions are requested. Albumin supplementation was requested. 03/06/2019-patient is admitted with hyponatremia serum sodium level around 120. He was started on salt tablets and also on Lasix and spironolactone. Sodium levels improved to 123.5. Patient is asymptomatic. Plan is to repeat the labs tomorrow. I think patient has chronic hyponatremia most likely secondary to cirrhosis of the liver. 03/07/2019-serum sodium is 127 today his baseline sodium is around 125. Salt tablet supplementation was discontinued. Patient received 1 L of normal saline yesterday. Plan is to continue to watch for fluid overload. 03/08/2019-patient's latest serum sodium is 127 stable it was at his baseline. No acute events during the hospital stay. Patient is requesting to go home today I strongly advised him to follow-up with Dr. Mcdonald next week. He verbalized his response. (2) Alcohol induced cirrhosis of the liver Is this a current diagnosis for this admission?: No Summary: 03/05/2019-patient has history of alcohol induced cirrhosis of the liver he comes to the hospital every 2 weeks for abdominal paracentesis. 8 L of fluid was removed 2 days ago. 03/06/2019-patient has history of heavy alcohol use leading to cirrhosis of the liver. He comes every 2 weeks to the hospital for abdominal paracentesis. Last time abdominal tap was done 3 days ago more than 8.6 L of fluid is removed. He received albumin at that time. 03/07/2019-patient has alcohol induced to the stress of the liver he comes to the hospital for paracentesis every 2 weeks. Paracentesis was done 3 days ago more than 8.6 L of fluid is removed. 03/08/2019-patient has history of alcohol induced cirrhosis of the liver with massive ascites he comes to the hospital every 2 weeks and goes to the radiology for abdominal paracentesis. He has paracentesis was done on Saturday this week more than 8.6 L of fluid is removed. On examination today patient has mild to moderate ascites and in my opinion he can wait until next week for possible abdominal paracentesis again as an outpatient. (3) Hypoalbuminemia Is this a current diagnosis for this admission?: Yes Summary: 03/05/2019-hypoalbuminemia with albumin level of 2.4. Albumin supplementation was requested. Hypoalbuminemia most likely secondary to cirrhosis of the liver and poor oral intake. 03/07/2019-patient serum albumin is around 2.6. He received albumin supplementation during this hospital stay. 03/08/2019-hypoalbuminemia most likely secondary to cirrhosis of the liver. (4) Ascites Is this a current diagnosis for this admission?: Yes Summary: 03/05/2019-patient came in with ascites with fluid thrill. He has abdominal paracentesis was done 2 days ago 8 L of fluid was removed. He could continue to watch the abdominal with and fluid thrill if necessary we do the abdominal paracentesis again during the hospital stay. Fluid restriction was initiated. 03/06/2019-abdominal examination today shows ascites with fluid thrill plan is to continue to closely monitor the ascites if needed we will arrange for abdominal paracentesis during this hospital stay. 2018-patient admitted with ascites plan is to continue to monitor the ascitic fluid and abdominal distention if necessary will arrange for abdominal paracen tesis. 03/08/2019-patient was advised to follow-up with Dr. Mcdonald at her office and also advised to follow-up with radiology for further management of ascites as an outpatient. (5) Hypotension Is this a current diagnosis for this admission?: Yes Summary: 03/05/2019-patient has history of low blood pressures blood pressure in the emergency room is 97/60 baseline for him. Started on Midodrin 5 mg p.o. 3 times daily. Continue to closely monitor the blood pressures. 03/06/2019-patient has a chronic hypertension blood pressure is 91/51 asymptomatic. Aspiration fall precautions are recommended. 03/07/2019-patient has persistent hypotension blood pressure is 97/55. At baseline. 03/08/2019-patient has history of hypertension blood pressure today is better today 106/65 patient was advised to continue midodrine at home. Patient's blood pressure at his baseline. (6) Acute kidney injury superimposed on chronic kidney disease Is this a current diagnosis for this admission?: Yes Summary: 03/05/2019-patient creatinine today is 4.4. Acute kidney injury superimposed on chronic kidney disease most likely secondary to third spacing of the fluid secondary to cirrhosis of the liver. nephrology consult was requested. 03/06/2019-patient creatinine is 4.29 today on admission it is 4.4. It is improving. Chronic kidney disease stage IV most likely secondary to hepatorenal syndrome. 03/07/2019-patient serum creatinine is 4.12 acute kidney injury superimposed on chronic kidney disease most likely secondary to hepatorenal syndrome. On admission creatinine is 4.4 improved to 4.12 today. 03/08/2019-patient serum creatinine is around 4.1 stable. He has chronic kidney disease disease most likely secondary to hepatorenal syndrome. - Additional Information Resuscitation Status: Full Code Discharge Diet: Other (Comments) Discharge Activity: Activity As Tolerated Home Medications: Ciprofloxacin HCl [Cipro 500 mg Tablet] 500 mg PO DAILY 03/05/19 Fluticasone Propionate [Flonase Nasal [place] 50 Mcg/[place] 16 gm] 2 sprays NASL DAILY 03/05/19 Loratadine [Claritin] 10 mg PO Q2D 03/05/19 Midodrine HCl 2.5 mg PO TID 03/05/19 Multivitamin [Tab-A-Al (Multiple Vitamin) Tablet] 1 tab PO DAILY 03/05/19 Pantoprazole Sodium [Protonix [address] Tablet] 40 mg PO BID 03/05/19 Spironolactone [Aldactone 25 mg Tablet] 12.5 mg PO DAILY 03/05/19 Furosemide [Lasix 20 mg Tablet] 20 mg PO DAILY tablet 03/08/19 Spironolactone [Aldactone 25 mg Tablet] 12.5 mg PO DAILY tablet 03/08/19 History of Present Illness History of Present Illness: ROSALIE REN is a 48 year old male with history of cirrhosis of the liver secondary to alcohol abuse, hypertension, ckd ,ex-smoker came to the emergency room after he was notified by Dr. Mcdonald's office that sodium levels are low. In the emergency room as per the ER staff he passed out. But the patient said that lights are too bright he closed his eyes they rushed him to sit in a wheelchair so he became unstable. Denies any nausea vomiting diarrhea denies any fevers. He said he is compliant with his medications. Denies any chest pains. Denies any dizzy spells. He has a abdominal paracentesis was done more than 8 L of fluid was taken out 2 days ago. At that time he was given IV albumin. In the emergency room sodium is around 120 medical consult was called for admission. Physical Exam Vital Signs: Temp Pulse Resp BP Pulse Ox 97.3 F 114 H 16 92/52 L 96 03/08/19 08:36 03/08/19 08:36 03/08/19 08:36 03/08/19 08:36 03/08/19 08:36 Intake & Output 03/07/19 03/08/19 03/09/19 06:59 06:59 06:59 Intake Total 1470 310 Output Total 800 70 Balance 670 240 Weight 63.9 kg 62.9 kg General appearance: PRESENT: no acute distress, thin Head exam: PRESENT: atraumatic Eye exam: PRESENT: PERRLA Mouth exam: PRESENT: dry mucosa Teeth exam: PRESENT: poor dentation Neck exam: ABSENT: carotid bruit, JVD, lymphadenopathy, thyromegaly Respiratory exam: PRESENT: decreased breath sounds Cardiovascular exam: PRESENT: tachycardia GI/Abdominal exam: PRESENT: ascites, normal bowel sounds Rectal exam: PRESENT: deferred Extremities exam: PRESENT: full ROM. ABSENT: calf tenderness, clubbing, pedal edema Neurological exam: PRESENT: alert, awake, oriented to person, oriented to place, oriented to time, oriented to situation, CN II-XII grossly intact. ABSENT: motor sensory deficit Results Laboratory Results: 03/07/19 05:26 03/07/19 05:26 03/05/19 03/05/19 03/06/19 18:59 18:59 00:49 Creatine Kinase 56 58 CK-MB (CK-2) 4.07 Troponin I < 0.012 NT-Pro-B Natriuret Pep 03/06/19 03/06/19 03/06/19 00:49 06:38 06:38 Creatine Kinase 45 L CK-MB (CK-2) 3.74 3.72 Troponin I < 0.012 < 0.012 NT-Pro-B Natriuret Pep 1140 H Qualifiers - * PATIENT BEING DISCHARGED WITH ANY OF THE FOLLOWING DIAGNOSIS: No VTE patient discharged on overlapping Therapy?: No Acute Heart Failure - Is this a Heart Failure Patient?: No Plan Discharge Plan: Patient is going home today. Time Spent: Greater than 30 Minutes
== END 2019-03-08 09:10 | disposition home or self-care (01) | DRG 641 ==
LOC: ER 12:06 → EH 18:16 → 4W 22:12 → 3S 03-07 07:50 → 3N 03-07 18:24
PROVIDERS: ADMIT Internal Medicine; ATTEND Internal Medicine
DX: E87.1 Hypo-osmolality and hyponatremia (principal); N17.9 Acute kidney failure, unspecified; K70.31 Alcoholic cirrhosis of liver with ascites; E87.2 Acidosis; N18.3 Chronic kidney disease, stage 3 (moderate); I95.9 Hypotension, unspecified; J44.9 Chronic obstructive pulmonary disease, unspecified; E88.09 Other disorders of plasma-protein metabolism, not elsewhere classified
CPT/HCPCS: 36415; 80053; 80061; 80307; 81001; 82550; 82553; 83036; 83690; 83735; 83880; 84443; 84484; 85025; 85610; 94640; 99284; J1650; J3490; J7030; J7614; P9047